=== PATIENT | female | born 1990 | race Caucasian/White ===

== ENCOUNTER → 2018-04-04 11:27 | Outpatient (CLI) | payer BC, SELFPAY ==
[2018-04-04 12:18] LABS: Prolactin 5.6 ng/mL
[2018-04-04 21:21] LABS: Chlamydia Trachomatis by PCR Negative (Negative); Neisserai gonorrhoeae by PCR Negative (Negative); Probe Check PASS; Sample Adequacy Control PASS; Specimen Processing Control PASS
[2018-04-10 14:09] LABS: HPV Reflexed? NOT INDICATED
== END ==
PROVIDERS: Nurse Practitioner Women's Health; Referring Provider Obstetrics & Gynecology; Visit Provider Obstetrics & Gynecology
DX: Z12.4 Encounter for screening for malignant neoplasm of cervix (principal); Z11.3 Encounter for screening for infections with a predominantly sexual mode of transmission; N92.6 Irregular menstruation, unspecified
CPT/HCPCS: 36415; 84146; 84443; 87491; 87591; 87624; 88175; G0145

== ENCOUNTER 2018-10-03 11:35 | Emergency (ER) | payer BC, SELFPAY ==
[2018-07-10 11:04] VITALS: BMI 43.7
[2018-10-03 11:36] VITALS: BP 149/82; PULSE 91; RESP 16; TEMP 36.6; O2SAT 98; BMI 44.4
--- NOTE | 2018-10-03 11:53 | RAD_ITS ---
STUDY: X-RAY CHEST REASON FOR EXAM: Female, 28 years old. Chest pain TECHNIQUE: Single AP portable view of the chest. COMPARISON: None. FINDINGS: The lungs are clear and expanded. There is no demonstrated pleural abnormality. Normal size heart. Normal mediastinum and mary ellen. Normal visualized pulmonary arteries. Normal visualized aortic arch and descending thoracic aorta. Normal visualized thoracic spine. Normal visualized ribs, clavicles, and shoulders. There is no demonstrated abnormality of the visualized soft tissue structures of the upper abdomen. RAD/Chest 1 View (Portable) IMPRESSION: Normal x-ray examination of the chest. Electronically Signed: Alan Mukherjee DO at 12:35 EDT Tel , Service support ,
--- NOTE | 2018-10-03 11:53 | EKG12_ITS ---
Test Reason : CP Blood Pressure : / mmHG Vent. Rate : 090 BPM Atrial Rate : 090 BPM P-R Int : 138 ms QRS Dur : 084 ms QT Int : 392 ms P-R-T Axes : 011 015 010 degrees QTc Int : 479 ms Normal sinus rhythm Normal ECG Confirmed by CLARE WILLS ([id number]), web content editor JENNIFFER JOYCE ([id number]) on 10/05/2018 10:48:14 AM Referred By: DALTON Confirmed By:CLARE WILLS
[2018-10-03] MEDS: Aspirin 81 MG TAB.CHEW 324 MG PO (12:06)
[2018-10-03] MEDS: 0.9% Normal Saline 1,000 ML 150 ML IV (12:07)
[2018-10-03 12:34] LABS: Absolute Neutrophil Count 4.8 X10^3/uL (2.0-7.7); Basophil# 0.02 X10^3/uL; Basophil% 0.3 % (0-1); Eosinophil# 0.11 X10^3/uL; Eosinophils% 1.5 % (0-5); Hemoglobin 14.1 g/dl (12.0-15.0); Lymphocyte % 26.8 % (19-41); Mean Corp Hgb Conc 33.6 g/gl (32-36); Mean Corpuscular Hgb 27.2 pg (27.0-32.0); Mean Corpuscular Volume 80.9 fL (81-99); Mean Platelet Vol. 10.9 fl (6.2-12.0); Monocyte# 0.53 X10^3/uL; Monocyte% 7.1 % (0-10); Neutrophil % 64.2 % (47-70); Platelet Count 259 K/mm3 (150-450); RBC Distribution Width CV 12.8 % (11.6-14.6); RBC Distribution Width SD 37.6 fl (35.1-43.9); Red Blood Count 5.19 M/mm3 (4.2-5.4); White Blood Count 7.5 K/mm3 (4.4-11.0)
--- NOTE | 2018-10-03 12:38 | ED.VISSUMM ---
- ER Visit Summary Date of Service: 10/03/18 Chief Complaint: Chest pain History of Present Illness: The patient is a 28 F with a 3-day history of chest pain. She states she has pain in the distal aspect of her upper arm on the left and along the left ribs. Pain will wax and wane with no specific enticing factor. She does state that the pain will get very sharp when it is severe. She denies shortness of breath but states she does not want to take deep breaths when the pain hits. Patient has no significant history of cardiac disease and no PE risk factors. She does have family history of cardiac disease. Physical Examination: Blood pressure is 149/82, otherwise unremarkable. Patient sitting upright in bed no acute distress. Head and neck examination normal. Heart is regular rate and rhythm. Lung sounds are clear. Chest wall is nontender. There is no crepitus. Abdomen is soft nontender. Lower exam examination was no calf tenderness or edema. Test Results: EKG is sinus at 90 with no sign of acute ischemia. Portable chest x-ray normal. CBC and chemistry studies normal. test is negative. D-dimer is negative. Troponin negative. Emergency Department Course and Treatment: She was given aspirin on arrival here. Patient has not had chest pain while in the emergency room. Test results were discussed with her. She will follow-up with primary care physician. She believes the pain may be secondary to anxiety. She is encouraged to return if symptoms worsen or any other concerns arise. Treatment Plan: [] Disposition: Discharge Impression: Atypical chest pain This note was generated with [employer] dictation software. It may contain incorrect words, spelling, and punctuation that were not noted in review of the chart prior to signing ED Disposition - Plan for ED Patient: Disposition: Home or Assisted Living Instructions: ED Chest Pain Atypical Unkn Cause Referrals: Michael Lew III, MD [STAFF PHYSICIAN] - 1-2 Weeks
[2018-10-03 12:46] LABS: POSITIVE COUNT NO; POSITIVE DIFFERENTIAL NO; POSITIVE MORPHOLOGY NO
[2018-10-03 12:48] LABS: D-Dimer Quantitative (DVT/PE) < 0.27 FEU/ug/m (0.27-0.49)
[2018-10-03 12:50] LABS: Anion Gap 5 (5-15); BUN 7 mg/dL (7-18); BUN/Creat Ratio 8.9 RATIO (10-20); Calcium,Total 9.1 mg/dL (8.5-10.1); Chloride 106 mmol/L (98-107); Creatinine, Serum 0.78 mg/dL (0.55-1.02); EST Glomerular Filtration Rate 93 mL/min (>60); Est Glom Filt Rate - Afr Amer 112 mL/min (>60); Estimated Creatinine Clearance 88.83 ml/min; Glucose 88 mg/dL (74-106); Potassium 3.7 mmol/L (3.5-5.1); Sodium Level 137 mmol/L (136-145)
[2018-10-03 12:55] LABS: Internal QC Validated? YES +Cl - CLEAR BKGD; Pregnancy, Serum, hCG Quali. NEGATIVE Negative
[2018-10-03 13:57] VITALS: BP 129/81; PULSE 70; RESP 20; O2SAT 99
== END 2018-10-03 14:02 | disposition home or self-care (01) ==
PROVIDERS: Emergency Provider Emergency Medicine
DX: R07.89 Other chest pain (principal); Z82.49 Family history of ischemic heart disease and other diseases of the circulatory system
CPT/HCPCS: 71045; 80048; 84484; 84703; 85025; 85379; 93005; 96360; 96361; 99284; J7030

== ENCOUNTER → 2019-07-12 | Outpatient (CLI) | payer BC, SELFPAY ==
[2019-07-04 14:44] VITALS: BMI 44.4
--- NOTE | 2019-07-12 08:10 | US_ITS ---
STUDY: ULTRASOUND OF THE FEMALE PELVIS - COMPLETE REASON FOR EXAM: Female, 28 years old. PELVIC PAIN LMP: June 27, 2019. TECHNIQUE: Transabdominal and Transvaginal TECHNICAL QUALITY: Adequate. COMPARISON: None. FINDINGS: The uterus is anteverted and is tilted to the right side of the pelvis. The uterus measures 7.4 cm x 3.7 cm x 2.6 cm. Normal uterine cervix. The endometrium measures 2.9 mm in thickness, and is hyperechoic. There is no demonstrated endometrial mass. There is no demonstrated myometrial mass. I.U.D. - The patient does not have an I.U.D. The right ovary is visualized. The right ovary measures 3.4 cm x 2.1 cm x 1.9 cm. There is no right ovarian cyst or ovarian mass. There is no visualized right adnexal mass or complex lesion. There is normal arterial and normal venous vascularity. The left ovary is visualized. The left ovary measures 2.7 cm x 2.5 cm x 1.7 cm. There is no left ovarian cyst or ovarian mass. There is no visualized left adnexal mass or complex lesion. There is normal arterial and normal venous vascularity. There is no fluid in the cul-de-sac. The pre void volume of the bladder was 481 ml. Polycystic ovary disease: No. US/Pelvic (Non ) IMPRESSION: Normal female pelvis. Electronically Signed: Kevin Cantu, at 13:31 EST , Service support ,
--- NOTE | 2019-07-12 08:10 | US_ITS ---
STUDY: ULTRASOUND OF THE FEMALE PELVIS - COMPLETE REASON FOR EXAM: Female, 28 years old. PELVIC PAIN LMP: June 27, 2019. TECHNIQUE: Transabdominal and Transvaginal TECHNICAL QUALITY: Adequate. COMPARISON: None. FINDINGS: The uterus is anteverted and is tilted to the right side of the pelvis. The uterus measures 7.4 cm x 3.7 cm x 2.6 cm. Normal uterine cervix. The endometrium measures 2.9 mm in thickness, and is hyperechoic. There is no demonstrated endometrial mass. There is no demonstrated myometrial mass. I.U.D. - The patient does not have an I.U.D. The right ovary is visualized. The right ovary measures 3.4 cm x 2.1 cm x 1.9 cm. There is no right ovarian cyst or ovarian mass. There is no visualized right adnexal mass or complex lesion. There is normal arterial and normal venous vascularity. The left ovary is visualized. The left ovary measures 2.7 cm x 2.5 cm x 1.7 cm. There is no left ovarian cyst or ovarian mass. There is no visualized left adnexal mass or complex lesion. There is normal arterial and normal venous vascularity. There is no fluid in the cul-de-sac. The pre void volume of the bladder was 481 ml. Polycystic ovary disease: No. US/Transvaginal Non- IMPRESSION: Normal female pelvis. Electronically Signed: Kevin Cantu, at 13:31 EST , Service support ,
== END | disposition home or self-care (01) ==
LOC: OPUS 08:10
PROVIDERS: PCP Nurse Practitioner Primary Care; Referring Provider Nurse Practitioner Women's Health; Visit Provider Nurse Practitioner Women's Health
DX: R10.2 Pelvic and perineal pain (principal)
CPT/HCPCS: 76830; 76856; 93976

== ENCOUNTER 2020-08-30 06:17 | Emergency (ER) | payer BC, SELFPAY ==
[2020-08-24 10:59] VITALS: BMI 47.7
[2020-08-30 06:18] VITALS: BP 151/88; PULSE 71; RESP 16; TEMP 36.5; O2SAT 97; BMI 46.8
--- NOTE | 2020-08-30 06:29 | EKG12_ITS ---
Test Reason : Blood Pressure : / mmHG Vent. Rate : 076 BPM Atrial Rate : 076 BPM P-R Int : 126 ms QRS Dur : 088 ms QT Int : 418 ms P-R-T Axes : 004 023 010 degrees QTc Int : 470 ms Normal sinus rhythm with sinus arrhythmia Low voltage QRS Borderline ECG Confirmed by NANI CONNOR, LUISITO ([id number]), manuscript editor ONUR VASQUEZ ([id number]) on 09/02/2020 7:50:31 AM Referred By: BUSHRA Confirmed By:LUISITO CARDOZA MD
--- NOTE | 2020-08-30 06:30 | ED.DCSUM_ITS ---
History of Present Illness Chief Complaint: Abd Pain Informant: Patient Onset: Today Current Severity: Mild Maximum Severity: Moderate Narrative: Patient states she awoke from sleep early this morning with upper epigastric pain that wraps around both sides into her back. Patient states she tried taking some Tums without improvement. She thought if she drinks some water or ate something that may help. She did have some slight improvement although the pain did not resolve. Patient states she went to bed approximately 4 hours ago and felt okay at that time. She has a history of occasional reflux stating she will take Tums once a week to once every 2 weeks. No fever or chills. No vomiting or diarrhea. - Past Medical History (1) PCOS (polycystic ovarian syndrome) Status: Chronic Past Medical History - Allergies and Home Meds Allergies/Adverse Reactions: Allergies No Known Allergies Allergy (Verified 08/24/20 10:56) Primary Care Physician: Alecia Liz NP, [employer]LE[employer] SPECIALIST-C [Primary Care Provider] - Lives: Spouse/ Significant Other Smoking Status: Never smoker Review of Systems General: Denies: Chills, Fever Eyes: Denies: Visual changes - bilaterally ENT: Denies: Bilateral ear pain Cardiovascular: Denies: Chest pain Respiratory: Denies: Dyspnea, Cough Gastrointestinal: Reports: Abdominal pain. Denies: Nausea, Vomiting, Diarrhea Genitourinary: Denies: Dysuria Musculoskeletal: Denies: Swelling, Extremity Pain Skin: Denies: Rash Neurological: Denies: Headache Hematologic: Denies: Easy bruising, Easy bleeding Allergy: Denies: Uticaria Physical Exam Vital Signs/Narrative: Vital Signs Temp Pulse Resp BP Pulse Ox 08/30/20 06:18 97.7 F L 71 16 151/88 H 20 Inital Vital Signs reviewed: Yes General: Well nourished, Well developed Head: Normocephalic ENT: Moist mucous membranes Neck: Supple Cardiovascular: Regular rate, Regular rhythm Respiratory: No distress, CTA bilaterally Abdomen: Soft, Nontender, Hypoactive bowel sounds Skin: Normal color Neurological: Alert, Oriented x3 Psychological: Normal affect Diagnostic/Tx/Re-eval Impressions Chest CTA 08/30/20 07:03 IMPRESSION: Normal CTA chest examination, without a demonstrated pulmonary embolism, aortic aneurysm, or aortic dissection. No evidence for acute cardiopulmonary pathology. Electronically Signed: Jose Moser MD at 7:48 EDT , Service support , 08/30/20 07:03 CTA Chest W/WO Contrast [CT] Stat Laboratory Results 08/30/20 08/30/20 08/30/20 06:40 06:40 06:40 WBC 9.4 RBC 5.05 Hgb 13.2 Hct 40.7 MCV 80.6 L MCH 26.1 L MCHC 32.4 RDW Std Deviation 38.5 RDW Coeff of Shona 13.2 Plt Count 271 MPV 10.4 Immature Gran % (Auto) 0.300 Neut % (Auto) 56.3 Lymph % (Auto) 33.7 Benson % (Auto) 8.0 Eos % (Auto) 1.3 Baso % (Auto) 0.4 Absolute Neuts (auto) 5.3 Absolute Lymphs (auto) 3.16 Nucleated RBC % 0 D-Dimer Quant (PE/DVT) 1.26 H* Sodium 137 Potassium 3.5 Chloride 103 Carbon Dioxide 27.0 Anion Gap 7 BUN 10 Creatinine 0.81 Estim Creat Clear Calc 87.70 Est GFR (MDRD) Af Amer 107 Est GFR (MDRD) Non-Af 89 BUN/Creatinine Ratio 12.4 Glucose 130 H Calcium 9.0 Total Bilirubin 0.20 Direct Bilirubin 0.13 AST 16 ALT 34 Alkaline Phosphatase 89 Troponin I < 0.015 Total Protein 6.8 Albumin 2.8 L Globulin 4.0 Lipase 104 - EKG Initial EKG Interpretation: Sinus Rhythm - Sinus at 76 with no acute ischemia. - Medical Decision Making Blood work is largely unremarkable. Negative lipase and troponin. D-dimer is slightly elevated. CTA of the chest does not reveal any evidence of a PE. Test results discussed with patient at bedside. We will start her on Prilosec as my suspicion is her symptoms are secondary to reflux or a small ulcer. She is to follow-up with her primary care physician within the next 2 to 4 weeks. ED Disposition - Plan for ED Patient: Disposition: Home or Assisted Living Diagnosis: Epigastric pain Instructions: ED Epigastric Pain (Uncertain Cause) Prescriptions: Omeprazole [Prilosec] 20 mg PO DAILY #30 capsule Transmission Status: Pending to [facility]/pharmacy #[id number] Referrals: PodlogarAlecia NP, [employer]LE[employer] SPECIALIST-C [Primary Care Provider] - 1-2 Weeks
[2020-08-30] MEDS: Pantoprazole Sodium 40 MG Tablet PO (06:44)
[2020-08-30 06:46] LABS: Absolute Lymphocyte Count 3.16 X10^3/uL (0.83-4.51); Absolute Neutrophil Count 5.3 X10^3/uL (2.0-7.7); Basophil# 0.04 X10^3/uL; Basophil% 0.4 % (0-1); Eosinophil# 0.12 X10^3/uL; Eosinophils% 1.3 % (0-5); Hematocrit 40.7 % (37-47); Hemoglobin 13.2 g/dL (12.0-15.0); Lymphocyte # 3.16 X10^3/ul (4.0); Lymphocyte % 33.7 % (19-41); Mean Corp Hgb Conc 32.4 g/dL (32-36); Mean Corpuscular Hgb 26.1 pg (27.0-32.0); Mean Corpuscular Volume 80.6 fL (81-99); Mean Platelet Vol. 10.4 fl (6.2-12.0); Monocyte# 0.75 X10^3/uL; NRBC Flagged by Analyzer 0 % (0-5); Neutrophil # 5.27 X10^3/uL (2.7-7.7); Neutrophil % 56.3 % (47-70); Platelet Count 271 K/mm3 (150-450); RBC Distribution Width CV 13.2 % (11.6-14.6); RBC Distribution Width SD 38.5 fl (35.1-43.9); Red Blood Count 5.05 M/mm3 (4.2-5.4); White Blood Count 9.4 K/mm3 (4.4-11.0)
[2020-08-30 06:58] LABS: D-Dimer Quantitative (DVT/PE) 1.26 FEU/ug/m (0.27-0.49)
--- NOTE | 2020-08-30 07:03 | CT_ITS ---
STUDY: CTA CHEST REASON FOR EXAM: Female, 30 years old. lower chest pain, elevated d-dimer RADIATION DOSAGE (If Supplied By Facility): CTDIvol = ( 12.66 ) mGy, DLP = ( 509.37 ) mGycm TECHNIQUE: The examination was performed with the intravenous administration of IV 100mL Isovue-370. Post-processing of the angiographic images was performed, with multiplanar reformation and 3D reconstruction. Individualized dose optimization techniques were used for this CT. COMPARISON: Chest x-ray 10/03/2018. FINDINGS: Normal enhancement of the main pulmonary artery and right and left pulmonary arteries. Normal enhancement of the bilateral peripheral pulmonary arteries. There is no demonstrated pulmonary embolism. Normal thoracic aorta and visualized great vessels. There is no demonstrated aortic dissection. Normal heart and pericardium. Normal mediastinum. Normal hilar regions. Normal visualized trachea and bronchi. The lungs are well expanded. Normal pulmonary parenchyma. Normal pleura. Normal chest wall structures. Normal osseous structures. Normal visualized upper abdomen. CT/CTA Chest W/WO Contrast IMPRESSION: Normal CTA chest examination, without a demonstrated pulmonary embolism, aortic aneurysm, or aortic dissection. No evidence for acute cardiopulmonary pathology. Electronically Signed: Jose Moser MD at 7:48 EDT , Service support ,
[2020-08-30 07:06] LABS: AST(SGOT) 16 U/L (15-37); Alanine Aminotransfer ALT/SGPT 34 U/L (13-56); Albumin, Serum 2.8 g/dL (3.2-5.0); Alkaline Phosphatase 89 U/L (45-117); Anion Gap 7 (5-15); BUN 10 mg/dL (7-18); BUN/Creat Ratio 12.4 RATIO (10-20); Bilirubin, Direct 0.13 mg/dL (0.00-0.30); Chloride 103 mmol/L (98-107); Creatinine, Serum 0.81 mg/dL (0.55-1.02); EST Glomerular Filtration Rate 89 mL/min (>60); Est Glom Filt Rate - Afr Amer 107 mL/min (>60); Glucose 130 mg/dL (74-106); Lipase 104 U/L (73-393); Potassium 3.5 mmol/L (3.5-5.1); Protein, Total 6.8 g/dL (6.4-8.2); Sodium Level 137 mmol/L (136-145)
[2020-08-30 08:04] VITALS: BP 138/74; PULSE 85; RESP 15; O2SAT 98
== END 2020-08-30 08:05 | disposition home or self-care (01) ==
PROVIDERS: Emergency Provider Emergency Medicine; PCP Nurse Practitioner Primary Care
DX: R10.13 Epigastric pain (principal); R79.1 Abnormal coagulation profile
CPT/HCPCS: 71275; 80048; 80076; 83690; 84484; 85025; 85379; 93005; 99285; Q9967

== ENCOUNTER 2021-08-25 15:00 | Outpatient (CLI) | payer BC, SELFPAY ==
[2021-08-31 11:13] LABS: HPV APTIMA, High Risk Negative (Negative)
== END 2021-08-25 23:59 | disposition home or self-care (01) ==
LOC: LABSPEC 08-26 13:59
PROVIDERS: PCP Nurse Practitioner Primary Care; Referring Provider Nurse Practitioner Women's Health; Visit Provider Nurse Practitioner Women's Health
DX: Z12.4 Encounter for screening for malignant neoplasm of cervix (principal)
CPT/HCPCS: 87624; 88175; G0145

== ENCOUNTER 2022-04-05 11:33 | Day surgery (SDC) | payer BC, SELFPAY ==
--- NOTE | 2022-04-04 16:01 | EKG12_ITS ---
Test Reason : PREOP Blood Pressure : / mmHG Vent. Rate : 087 BPM Atrial Rate : 087 BPM P-R Int : 130 ms QRS Dur : 078 ms QT Int : 382 ms P-R-T Axes : 015 006 016 degrees QTc Int : 459 ms Normal sinus rhythm with sinus arrhythmia Normal ECG Confirmed by NANI CONNOR, LUISITO ([id number]), assistant editor JENNIFFER JOYCE ([id number]) on 04/05/2022 8:49:57 AM Referred By: Lulu Gee Confirmed By:LUISITO CARDOZA MD
[2022-04-05] VITALS (14 sets, daily range): BP systolic 115–152; BP diastolic 78–110; PULSE 60–97; RESP 16–22; TEMP 35.9–36.6; O2SAT 97–100; BMI 45.6
--- NOTE | 2022-04-05 11:42 | EKG12_ITS ---
Test Reason : PREOP Blood Pressure : / mmHG Vent. Rate : 089 BPM Atrial Rate : 089 BPM P-R Int : 136 ms QRS Dur : 086 ms QT Int : 394 ms P-R-T Axes : 012 002 008 degrees QTc Int : 479 ms Normal sinus rhythm Normal ECG No previous ECGs available Confirmed by CARISSA CONNOR, JOSLYN ([id number]), deputy editor in chief JENNIFFER JOYCE ([id number]) on 04/12/2022 10:59:58 AM Referred By: Lulu Gee Confirmed By:KYLIE FERRER MD
[2022-04-05 12:41] LABS: Internal QC Validated? YES +Cl - CLEAR BKGD; Pregnancy, Urine Negative Negative
[2022-04-05] MEDS: Lactated Ringers 1,000 ML 15 ML IV ×3 (12:58→18:34)
--- NOTE | 2022-04-05 13:30 | GALL_PTH ---
PATIENT: ROLAN GONZALEZ LOC: [facility] [place][id number] AGE/SX: 31/F ROOM: RE04/05/[address]: Dr. Lulu Gee MD : 1990 BED: DIS: 04/05/2022 SPEC #: [id number] RECD: 04/05/22 14:59 STATUS: ILEANA DESHAWN #: [id number] SAMIR: 04/05/22 13:[address]: Lulu Gee DEPT: SURGICAL PATHOLOGY RECD BY: Mayra Michel ENTERED: 04/06/22 09:23 SP TYPE: TADEO MATTHEWS DR: Alecia Liz, 2ND GRADE TEACHER-C Tissues: Gallbladder, NOS Procedures: Surgery Specimen Level III HEADER OPERATION: Laparoscopic cholecystectomy PRE-OP DIAGNOSIS: RUQ pain, calculus of gallbladder TISSUE SUBMITTED: Gallbladder and contents MICROSCOPIC DIAGNOSIS Gallbladder, cholecystectomy: Cholesterolosis, chronic cholecystitis and cholelithiasis. AM:miguel angel 04/07/2022 MICROSCOPIC DESCRIPTION Slides are reviewed. GROSS DESCRIPTION Received is one container labeled with the patient's name and designated gallbladder. The specimen consists of a gallbladder measuring 8.5 cm in length and 3.5 cm in diameter. The external surface is smooth and glistening. Focally, it is granular, hemorrhagic and contains cautery artifact. The lumen of the gallbladder contains green mucoid bile and a single ovoid, yellow, crystalline calculus measuring 1.5 cm in greatest dimension. The mucosa is bile-stained and without any mass lesions. The gallbladder wall averages 0.1 cm in thickness and is free of mass lesions. The mucosa contains chalky, yellow streaks. Foxer sections of the gallbladder and the cystic duct at margin of resection are submitted in one cassette. / AM:miguel angel 04/06/2022 :3 CPT: 08598
[2022-04-05] MEDS: Bupivacaine 0.25% 30 ML Vial (14:32)
--- NOTE | 2022-04-05 14:51 | PCM.OPRPT ---
Report of Operation Date of Procedure: 04/05/22 Pre-Operative Diagnosis: cholelithiasis, abdominal pain Post-Operative Diagnosis: same Surgery/Procedure Performed:: laparoscopic cholecystectomy Description of Surgical Findings:: gallbladder with minimal inflammatory changes Surgeon: Lulu Gee dimension warehouse supervisor: Niko Lim Type of Anesthesia: General Anesthesiologist: Amish Mahmood Specimen's removed: gallbladder and contents Drains: none Estimated Blood Loss (mL): < 10 ml Fluids Replaced: 1000 ml RL Description of Procedure: After informed consent was given, the patient was brought to the Operating Room. Appropriate time out protocol was followed. The patient was placed in the supine position. The patient was then placed under general endotracheal anesthesia by the anesthesia provider. The abdomen was then prepped with a sterile surgical skin preparation and sterile surgical drapes were placed. An area superior to the umbilical dimple was grasped with penetrating clamps and the skin and subcutaneous tissues were infiltrated with local anesthetic. A skin incision was then made with a 15 blade scalpel. The anterior abdominal wall was elevated and a Veress needle was carefully inserted into the intraabdominal cavity. It was checked to be in the proper position with a normal saline drop test. A CO2 pneumoperitoneum was then created. Once this was achieved, then the Veress needle was removed and an 11mm trocar was placed in its stead. A 10mm laparoscope was then inserted into the trocar and careful attention was directed to the intraabdominal contents. There was no evidence of injury to any intraabdominal organs from insertion of the Veress needle or the trocar. Under direct visualization, a 5mm subxiphoid trocar and two lateral 5mm right subcostal trocars were placed. The skin and subcutaneous tissues at these sites were infiltrated with local anesthetic prior to placement of these trocars. Attention was then directed to the right upper quadrant of the abdomen. Graspers were placed in the lateral trocars to grasp the distal aspect of the gallbladder and direct it cephalad and to grasp the gallbladder at Osman?s pouch and direct it laterally. Dissection then began on the proximal gallbladder continuing down to the area of the triangle of Calot to bluntly dissect out the cystic duct. The neck of the gallbladder was identified and blunt dissection continued to dissect out a segment of the cystic duct. A clip was then placed on the neck of the gallbladder. Two clips were placed further proximally. The cystic duct was then transected. The cystic artery was visualized and bluntly isolated and then two clips were placed proximally and one clip distally and then it was transected between the proximal and distal clips. The gallbladder was then from the liver bed using electrocautery. Once from the liver bed, it was brought out via the umbilical port in an Endobag. It was then forwarded to pathology for analysis. The liver bed was carefully examined. There was no evidence of bile leakage or bleeding. The cystic duct stump and cystic artery stump had their clips intact and there was no evidence of bile leakage or bleeding. The remainder of the abdomen was grossly normal. The CO2 was released and all trocars removed intact. The periumbilical fascia was approximated with a [id number] 0 vicryl suture. All skin incision were closed with 4-0 monocryl in a subdermal fashion. Cavilol and Steristrips were used to reinforce the skin closure. Sterile dressings were applied to all wounds. Sponge, needle and instrument count was verified and correct at time of skin closure. The patient was extubated and brought to the Recovery Room in stable condition. Complications none noted Admit VTE Documentation VTE Present on Admission: Yes VTE Mechan Device Prophylaxis: SCD's
[2022-04-05] MEDS: HYDROmorphone 0.5 MG/0.5 ML SYRINGE IV (15:02)
== END 2022-04-05 19:36 | disposition home or self-care (01) ==
LOC: SDC 11:35 → AC 11:35
PROVIDERS: Anesthesiology; PCP Nurse Practitioner Primary Care; Referring Provider Surgery; Visit Provider Surgery
PROC: (CPT 47610; principal; 2022-04-05 13:10)
DX: K80.10 Calculus of gallbladder with chronic cholecystitis without obstruction (principal); E66.01 Morbid (severe) obesity due to excess calories; Z68.42 Body mass index [BMI] 45.0-49.9, adult; E28.2 Polycystic ovarian syndrome
CPT/HCPCS: 47562; 00790; 81025; 88304; 93005; J7120; J2405

== ENCOUNTER → 2022-09-15 | Outpatient (CLI) | payer BC, SELFPAY ==
--- NOTE | 2022-09-15 07:52 | US_ITS ---
STUDY: ULTRASOUND OF THE FEMALE PELVIS - COMPLETE REASON FOR EXAM: Female, 32 years old. pain LMP: TECHNIQUE: Transabdominal and transvaginal TECHNICAL QUALITY: Adequate. COMPARISON: July 12, 2019 FINDINGS: The uterus is anteverted and is in a midline position. The uterus measures 6.6 x 3.3 x 2.7 cm. Normal uterine cervix. The endometrium measures 3.3 mm in thickness, and is hyperechoic. There is no demonstrated endometrial mass. There is no demonstrated myometrial mass. I.U.D. - The patient does not have an I.U.D. The right ovary is visualized. The right ovary measures 3.2 x 2 x 2.3 cm. There is no right ovarian cyst or ovarian mass. There is no visualized right adnexal mass or complex lesion. There is normal arterial and normal venous vascularity. The left ovary is visualized. The left ovary measures 3.1 x 2.2 x 2.1 cm. There is no left ovarian cyst or ovarian mass. There is no visualized left adnexal mass or complex lesion. There is normal arterial and normal venous vascularity. There is no fluid in the cul-de-sac. The pre void volume of the bladder was 250 ml. Multiple small peripheral cystic follicles in the ovaries bilaterally consistent with known polycystic ovary disease US/Pelvic (Non ) IMPRESSION: Findings consistent with known polycystic ovary disease. No acute abnormalities Electronically Signed: Chandler Cherry MD at 17:20 EDT ,
== END | disposition home or self-care (01) ==
PROVIDERS: PCP Nurse Practitioner Primary Care; Referring Provider Nurse Practitioner Women's Health; Visit Provider Nurse Practitioner Women's Health
DX: R10.2 Pelvic and perineal pain (principal)
CPT/HCPCS: 76830; 76856

== ENCOUNTER 2024-03-08 11:07 | Day surgery (SDC) | payer BC, SELFPAY ==
[2024-03-08] VITALS (8 sets, daily range): BP systolic 109–135; BP diastolic 68–95; PULSE 78–101; RESP 16–20; TEMP 36.1–37.2; O2SAT 95–100; BMI 45.7
--- NOTE | 2024-03-08 11:26 | PCM.PRE.AN2 ---
ASA Classification* ASA Classification ASA Classification: 3 Assessment & Plan Anesthesia* Anesthesia Assessment Anesthesia Assessment: Discussed sedation and/or anesthesia options, risks, benefits, and alternatives with patient/parents/legal guardian/POA. Questions invited. The patient/parents/legal guardian/POA seems to understand and agrees to proceed with anesthesia plan. Reviewed the physical assessment, medical history, allergy history and patient home medications list prior to surgery/procedure/anesthetic and documented any changes. Performed airway and anesthesia risk assessments. Anesthesia Type Anesthesia Type: MAC (see written pre anesthesia record for full assessment) Anesthesia Focused Assessment* Airway Assessment Mouth opens: >3 cm Mallampati Score: II Focused Labs Anesthesia Preop lab: CBC WBC 9.4 K/mm3 (4.4-11.0) 08/30/20 06:40 RBC 5.05 M/mm3 (4.2-5.4) 08/30/20 06:40 Hgb 13.2 g/dL (12.0-15.0) 08/30/20 06:40 Hct 40.7 % (37-47) 08/30/20 06:40 Plt Count 271 K/mm3 (150-450) 08/30/20 06:40 CHEMISTRY Potassium 3.5 mmol/L (3.5-5.1) 08/30/20 06:40 Sodium 137 mmol/L (136-145) 08/30/20 06:40 BUN 10 mg/dL (7-18) 08/30/20 06:40 Creatinine 0.81 mg/dL (0.55-1.02) 08/30/20 06:40 Glucose 130 mg/dL (74-106) H 08/30/20 06:40 TSH 1.80 uIU/mL (0.358-3.74) 04/04/18 11:36 COAG Urine Test Negative Negative 04/05/22 12:33 Tst Clinic Negative 04/04/18 16:15 Pre-Assessment Diagnosis/Proposed Procedure Planned Operative Procedure(s): CSCOPE Anesthesia History Anesthesia History - photographic process screen maker: Anesthesia History - photographic process screen maker Hx Hospitalization No 03/06/24 10:45 Any Problems With Anesthesia Yes: SLOW TO AWAKEN, PONV 03/06/24 10:45 Cholinesterase deficiency No 03/06/24 10:45 You/Your Family Experience No 03/06/24 10:45 fever (hyperthermia) with Relationship Recent Exposure to Contagious No 04/05/22 12:52 Disease Does patient have nerve No 03/06/24 10:45 stimulator Patient instructed to have device shut off --Does patient have Pacemaker or ICD? When Was Last Pacemaker Check QUESTION #4 FULL TEXT: You/Your Family Experience fever (hyperthermia) with Anesthesia Last Oral Intake Last Oral intake: Last Oral Intake NPO since Meds taken in AM with sips of water? Meds patient instructed to take am of surgery PONV PONV - photographic process screen maker: PONV - photographic process screen maker Female Yes 03/06/24 10:45 HX of Motion Sickness Yes 03/06/24 10:45 HX of N/V After Surgery Yes 03/06/24 10:45 Non-Smoker Yes 03/06/24 10:45 Duration of Surgery greater No 03/06/24 10:45 than 60 minutes Number of Risk Factors 4 03/06/24 10:45 PONV Score Severe Risk 03/06/24 10:45 Height & Weight Height & Weight: Anesthesia: Height & Weight Height 5 ft 3 in 09/04/23 09:16 Respiratory Assessment Respiratory Assessment - photographic process screen maker: Respiratory Tract Infection Hx - photographic process screen maker Hx Respiratory Tract Infection No 03/06/24 10:45 STOP Sleep Apnea STOP Sleep Apnea - photographic process screen maker: STOP Sleep Apnea - photographic process screen maker Hx Hypertension No 03/06/24 10:45 Hx Sleep Apnea No 03/06/24 10:45 CPAP BIPAP Do you snore loudly (louder No 03/06/24 10:45 than talking or can be heard Do you often feel tired/ No 03/06/24 10:45 fatigued/ sleepy during daytime? Has anyone observed you stop No 03/06/24 10:45 breathing during sleep? STOP Results Negative 03/06/24 10:45 QUESTION #5 FULL TEXT : Do you snore loudly (louder than talking or can be heard through closed doors)? 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 Specify any problems Hx of Preganancy in last 3 N/A 03/06/24 10:45 Months Nurse Filling Out Transfusion NBUCHER 03/06/24 10:45 & Questions: Date: 03/06/24 03/06/24 10:45 Time: 10:47 03/06/24 10:45 Patient unable to answer at this time (ie. confused, unrespo /Reproduction History /Reproductive History - photographic process screen maker: /Reproductive Hx- photographic process screen maker Hx Now Gestational Age (in weeks): EDC: Hx Hx Para Hx Section SAB No 03/06/24 10:45 PFSH Medical History PONV (postoperative nausea and vomiting) Wears glasses Alcohol use Migraine headache Heartburn Former smoker History of palpitations PCOS (polycystic ovarian syndrome) Home Medications ?Medication ?Instructions ?Recorded ?Last Taken ?Type levonorgestrel-ethinyl estradiol 1 tab PO QDAY #28 tabs 02/07/24 Unknown Rx 0.1 mg-20 mcg tablet (Aviane) Allergy/AdvReac Type Severity Reaction Status Date / Time No Known Allergies Allergy Verified 03/06/24 10:44 Family History Mother Diabetes Father Diabetes Hypertension Surgical History S/P cholecystectomy [place] teeth extracted History of tonsillectomy and adenoidectomy Social History number of children: 0 current occupational status: employed current occupation: [employer] Smoking Status: Former smoker alcohol intake: current alcohol intake frequency: holidays/special occasions only substance use type: does not use what type of physical activity do you participate in: other details: squats sit ups/push ups frequency: 3-4 times per week seatbelt use: always do you feel safe at home: Yes additional social history: [place] Works at [employer] (Closed) 4 Review of Systems (Anesthesia) ROS Narrative System reviewed and no additional complaints, except as documented.
[2024-03-08 11:44] LABS: Internal QC Validated? YES +Cl - CLEAR BKGD; Pregnancy, Urine Negative Negative
--- NOTE | 2024-03-08 12:30 | COLBX_PTH ---
PATIENT: ROLAN GONZALEZ LOC: EN U#:[id number] AGE/SX: 33/F ROOM: RE03/08/[address]: Dr. Joe Mckeon DO : 1990 BED: DIS: 03/08/2024 SPEC #: [id number] RECD: 03/08/24 16:48 STATUS: ILEANA DESHAWN #: [id number] SAMIR: 03/08/24 12:[address]: Joe Mckeon DEPT: SURGICAL PATHOLOGY RECD BY: Mayra Michel ENTERED: 03/11/24 08:18 SP TYPE: COLON BX OTHR DR: Alecia Liz, RN ONCOLOGY-C Tissues: A - Ileum, NOS B - COLON BIOPSY C - Rectum, NOS Procedures: Surgery Specimen Level IV HEADER OPERATION: Colonoscopy with biopsy and polypectomy PRE-OP DIAGNOSIS: Constipation, Irritable bowel syndrome TISSUE SUBMITTED: A- Terminal ileum biopsy, B- Hepatic flexure polyp, C- Rectal polyp MICROSCOPIC DIAGNOSIS A. Terminal ileum, biopsy: No pathologic change. B. Colonic polyp at hepatic flexure, biopsy: Fragments of hyperplastic polyp. C. Rectal polyp, biopsy: Fragments of inflammatory polyp with mucosal ulceration and granulation. See comment. 03/12/2024 COMMENT C. Clinical correlation is suggested. MICROSCOPIC DESCRIPTION Slides are reviewed. GROSS DESCRIPTION A. Received in fixative is one container labeled with the patient's name and designated Terminal ileum biopsy. The specimen consists of multiple irregular fragments of light harding soft tissue that in aggregate measure 1.5 x 0.3 x 0.1 cm. The specimen is totally submitted in one cassette. B. Received in fixative is one container labeled with the patient's name and designated Hepatic flexure polyp. The specimen consists of multiple irregular fragments of light harding soft tissue that in aggregate measure 1.5 x 0.6 x 0.1 cm. The specimen is totally submitted in one cassette. C. Received in fixative is one container labeled with the patient's name and designated Rectal polyp. The specimen consists of multiple irregular fragments of light harding soft tissue that in aggregate measure 1.5 x 0.5 x 0.1 cm. The specimen is totally submitted in one cassette. SJ 03/11/2024 TC:2 CPT:52448x3
--- NOTE | 2024-03-08 12:55 | HP.PCM_ITS ---
History and Physical Date of Admission: 03/08/24 Chief Complaint: constipation Details: ROLAN GONZALEZ, is a 33 F who presents to the office today for establishment with [facility]. She has always had digestive problems with constipation. It has been worsening as of recently. Feels like her stool is very large and hard to pass. SHe feels as if she does not have strength in her rectal muscles. She has been trying to incorporate a lot of fiber in her diet as well as supplementation. She will have LLQ pain on occasion but not all the time. She tells me she has family hx of colon cancer in her great uncle and cousins. She is unsure of their age as diagnosis. She would like to undergo colonoscopy to rule everything out and as precaution since family members have had colon cancer. She is s/p cholecystectomy March of 2022. She does have hx of PCOS and endometriosis. ROS Const Constitutional: No fatigue, fever(s) or weight change ENT ENT: No difficulty swallowing Gastro GI: Positive for abdominal pain, bloating, change in bowel habits, constipation, heartburn, excessive flatus and Blood in stool; No belching, change in stool character, coffee ground emesis, cramping, diarrhea, difficulty swallowing, feeling full early, incontinent of stools, Vomiting blood/hematemesis, loose stools, Black,tarry stools, nausea/dyspepsia, pain with swallowing, vomiting or other Musc Musculoskeletal: No joint pain Skin Skin: No yellowing of the eye or itchy eyes Psych Psychiatric: Positive for anxiety and No depression Endo Endocrine: No fatigue or weight change Aller/Imm Allergy/Immunologic: No itchy eyes Jt/Lymp Hematologic/Lymphatic: No easy bleeding or easy bruising Exam Const General: cooperative and comfortable Nutritional Appearance: average body habitus and well nourished [facility] Head: normal to inspection Ears: hearing grossly normal bilaterally Nose: external nose normal Face and sinus: normal facial exam Eyes General: appearance normal, both eyes and all related structures Neck Neck: normal visual inspection Chest Chest palpation & inspection: normal inspection of the chest Resp Effort & Inspection: normal respiratory effort Cardio Palpation: normal PMI GI Inspection: normal to inspection Palpation: no hepatosplenomegaly Skin General: no rashes or lesions noted Neuro General: patient alert Extrem General: normal to inspection Psych Affect: normal affect Assessment and Plan Assessment and Plan (1) Irritable bowel syndrome: (2) Constipation: Status: Acute Plan: Patient is here today for establishment with [facility]. She has a long hx of constipation with worsening over the past years. She feels her stools are large and hard. SHe has never had any GI workup. Differential diagnosis includes IBS, IBD or CIC. -Will order autoimmune work up to rule our IBD; although symptoms do align more with a diagnosis of IBS, she has no alarm signs -She would like to undergo colonoscopy. She is nervous about colon cancer as her distant relatives have had it. Explained that since the family is not intermediate that there is not an increased risk. Will order one regardless as she is having symptoms -She will take miralax once per day for constipation. If this is not helpful she will add a second dose in the evening -We will consider other testing in the future with sitz marker if indicated -She will f/u in 3 months Orders: Orders CBC W/Diff, Automated Today K59.00 - Constipation, unspecified Angiotensin Convert Enzyme Today K59.00 - Constipation, unspecified Anti-Mitochondrial AB Today K59.00 - Constipation, unspecified Anti-Smooth Muscle ABS Today K59.00 - Constipation, unspecified Celiac Disease Profile Today K59.00 - Constipation, unspecified Comprehensive Metabolic Profil Today K59.00 - Constipation, unspecified Allergen, Food Profile 14 Today K59.00 - Constipation, unspecified ENTERIC PATHOGEN PANEL STOOL Today K58.9 - Irritable bowel syndrome without diarrhea, K59.00 - Constipation, unspecified Ova and Parasites 8623 Today K58.9 - Irritable bowel syndrome without diarrhea, K59.00 - Constipation, unspecified Pancreatic Elastase, Fecal Today K59.00 - Constipation, unspecified Stool Lactoferrin/WBC Today K58.9 - Irritable bowel syndrome without diarrhea, K59.00 - Constipation, unspecified CDIFF (PCR) Today K59.00 - Constipation, unspecified IBD Expanded Profile Today K59.00 - Constipation, unspecified Giardia Lamblia, Stool EIA Today K59.00 - Constipation, unspecified MEAGAN Comprehensive Panel Today K59.00 - Constipation, unspecified ANCA Today K59.00 - Constipation, unspecified I have examined the patient and the H&P has been reviewed. There are no clinical changes since date of exam.
--- NOTE | 2024-03-08 13:35 | OP.COLON_ITS ---
Patient Name: Ara Prado Procedure Date: 03/08/2024 12:58 PM Date of : 1990 Age: 33 Procedure: Colonoscopy Indications: Abdominal pain in the left lower quadrant, Irritable bowel syndrome with constipation Providers: Joe Mckeon DO Referring MD: Alecia Liz Medicines: Monitored Anesthesia Care Patient Profile: This is a 33 year old female. Refer to note in patient chart for documentation of history and physical. Last Colonoscopy: none. The patient's first colonoscopy is today. Complications: No immediate complications. Procedure: Pre-Anesthesia Assessment: - Prior to the procedure, a History and Physical was performed, and patient medications and allergies were reviewed. The patient is competent. The risks and benefits of the procedure and the sedation options and risks were discussed with the patient. All questions were answered and informed consent was obtained. Patient identification and proposed procedure were verified by the physician in the pre-procedure area. Mental Status Examination: alert and oriented. Airway Examination: normal oropharyngeal airway and neck mobility. Respiratory Examination: clear to auscultation. CV Examination: normal. Prophylactic Antibiotics: The patient does not require prophylactic antibiotics. Prior Anticoagulants: The patient has taken no anticoagulant or antiplatelet agents except for NSAID medication. ASA Grade Assessment: II - A patient with mild systemic disease. After reviewing the risks and benefits, the patient was deemed in satisfactory condition to undergo the procedure. The anesthesia plan was to use monitored anesthesia care (MAC). Immediately prior to administration of medications, the patient was re-assessed for adequacy to receive sedatives. The heart rate, respiratory rate, oxygen saturations, blood pressure, adequacy of pulmonary ventilation, and response to care were monitored throughout the procedure. The physical status of the patient was re-assessed after the procedure. After I obtained informed consent, the scope was passed under direct vision. Throughout the procedure, the patient's blood pressure, pulse, and oxygen saturations were monitored continuously. The colonoscope was introduced through the anus and advanced to the terminal ileum. The colonoscopy was performed without difficulty. The patient tolerated the procedure well. The quality of the bowel preparation was adequate. The terminal ileum, ileocecal valve, appendiceal orifice, and rectum were photographed. Scope In: 1:08:32 PM Scope Withdrawal Time 0 hours 15 minutes 26 seconds Scope Out: 1:29:46 PM Total Procedure Duration Time 0 hours 21 minutes 14 seconds Findings: The perianal and digital rectal examinations were normal. Three sessile polyps were found in the rectum and hepatic flexure. The polyps were 1 to 2 mm in size. These polyps were removed with a hot snare. Resection and retrieval were complete. Verification of patient identification for the specimen was done. Estimated blood loss was minimal. A few small and large-mouthed diverticula were found in the recto-sigmoid colon and sigmoid colon. A patchy area of the terminal ileum was congested. Biopsies were taken with a cold forceps for histology. Verification of patient identification for the specimen was done. Estimated blood loss was minimal. Impression: - Three 1 to 2 mm polyps in the rectum and at the hepatic flexure, removed with a hot snare. Resected and retrieved. - Diverticulosis in the recto-sigmoid colon and in the sigmoid colon. - Congested mucosa in the terminal ileum. Biopsied. Recommendation: - Discharge patient to home. - Resume previous diet. - Continue present medications. - Await pathology results. - Repeat colonoscopy in 3 years for surveillance. Procedure Code(s): --- Professional --- 29363, Colonoscopy, flexible; with removal of tumor(s), polyp(s), or other lesion(s) by snare technique 47342, 59, Colonoscopy, flexible; with biopsy, single or multiple CPT copyright 2021 [employer]. All rights reserved. The codes documented in this report are preliminary and upon historical records administrator review may be revised to meet current compliance requirements. Joe Mckeon DO 03/08/2024 1:35:40 PM This report has been signed electronically. Number of Addenda: 0 Note Initiated On: 03/08/2024 12:58 PM
--- NOTE | 2024-03-08 13:36 | OP.CCLET_ITS ---
03/08/2024 Alecia Podlogar Re : Colonoscopy procedure for Ara Prado Dear Podlogar This procedure was performed on Friday, March 08, 2024. My impressions and recommendations are as follows: Impressions : - Three 1 to 2 mm polyps in the rectum and at the hepatic flexure, removed with a hot snare. Resected and retrieved. - Diverticulosis in the recto-sigmoid colon and in the sigmoid colon. - Congested mucosa in the terminal ileum. Biopsied. Recommendations : - Discharge patient to home. - Resume previous diet. - Continue present medications. - Await pathology results. - Repeat colonoscopy in 3 years for surveillance. My findings are described in the full procedure note, which is enclosed. If I can be of further assistance, please feel free to contact me at . Sincerely, oJe Mckeon, 03/08/2024 1:35:40 PM This report has been signed electronically.
--- NOTE | 2024-03-08 13:40 | PCM.POST.ANE ---
Anesthesia: Postop Eval I Current Vital Signs Temperature: 97 F Pulse Rate: 82 Blood Pressure: 111/68 Respiratory Rate: 20 Pulse Ox: 98 Oxygen Delivery Method: Room Air Assessment Airway patent: Yes Spontaneous unlabored respirations: Yes Mental status: Awake nausea: No Vomiting: No Anesthesia Complication: No Fluid Hydration Crystalloid volume administer (ml): 10 Total IV fluid infused: 10 Progress Note Anesthesia document: Postop Eval 1 completed: Yes
--- NOTE | 2024-03-08 13:51 | POSTOPAN2_ITS ---
Anesthesia Postop Eval I Sum Postop Eval Completion status Anesthesia document: Postop Eval 1 completed: Yes Anesthesia Postop Eval I Summary Anesthesia Postop Eval I Summary: Anesthesia Postop Eval I: Assessment Summary Airway patent Yes 03/08/24 13:42 BUSINESS SERVICES SPECIALIST [email or web address] Spontaneous unlabored Yes 03/08/24 13:42 BUSINESS SERVICES SPECIALIST [email or web address] respirations Mental status Awake 03/08/24 13:42 BUSINESS SERVICES SPECIALIST [email or web address] nausea No 03/08/24 13:42 BUSINESS SERVICES SPECIALIST [email or web address] Vomiting No 03/08/24 13:42 BUSINESS SERVICES SPECIALIST [email or web address] Anesthesia Postop Eval I: Fluid Summary Crystalloid volume administer 10 03/08/24 13:42 BUSINESS SERVICES SPECIALIST [email or web address] (ml) Colloids volume administered ( ml) Blood Product volume administered (ml) Total IV fluid infused 10 03/08/24 13:42 BUSINESS SERVICES SPECIALIST [email or web address] Anesthesia Postop Eval I: Summary Notes Anesthesia Complication No 03/08/24 13:42 BUSINESS SERVICES SPECIALIST [email or web address] Anesthesia Complication Comment: Post-operative progress note Anesthesia: Postop Eval II Evaluation Mental status: Awake Pain Level: 0 nausea: No Vomiting: No
--- NOTE | 2024-03-08 13:51 | PCM.POSTANE2 ---
Anesthesia Postop Eval I Sum Postop Eval Completion status Anesthesia document: Postop Eval 1 completed: Yes Anesthesia Postop Eval I Summary Anesthesia Postop Eval I Summary: Anesthesia Postop Eval I: Assessment Summary Airway patent Yes 03/08/24 13:42 ENGRAVINGS [email or web address] Spontaneous unlabored Yes 03/08/24 13:42 ENGRAVINGS [email or web address] respirations Mental status Awake 03/08/24 13:42 ENGRAVINGS [email or web address] nausea No 03/08/24 13:42 ENGRAVINGS [email or web address] Vomiting No 03/08/24 13:42 ENGRAVINGS [email or web address] Anesthesia Postop Eval I: Fluid Summary Crystalloid volume administer 10 03/08/24 13:42 ENGRAVINGS [email or web address] (ml) Colloids volume administered ( ml) Blood Product volume administered (ml) Total IV fluid infused 10 03/08/24 13:42 ENGRAVINGS [email or web address] Anesthesia Postop Eval I: Summary Notes Anesthesia Complication No 03/08/24 13:42 ENGRAVINGS [email or web address] Anesthesia Complication Comment: Post-operative progress note Anesthesia: Postop Eval II Evaluation Mental status: Awake Pain Level: 0 nausea: No Vomiting: No
== END 2024-03-08 14:28 | disposition home or self-care (01) ==
LOC: EN 11:10 → AC 11:12
PROVIDERS: Anesthesiology; PCP Nurse Practitioner Primary Care; Referring Provider Nurse Practitioner Primary Care; Visit Provider Internal Medicine Gastroenterology
PROC: 0DJD8ZZ Inspection of Lower Intestinal Tract, Via Natural or Artificial Opening Endoscopic (ICD-10-PCS; CPT 45378; principal; 2024-03-08 12:25)
DX: K62.6 Ulcer of anus and rectum (principal); K63.5 Polyp of colon; K62.1 Rectal polyp; K58.1 Irritable bowel syndrome with constipation; K63.89 Other specified diseases of intestine; K57.30 Diverticulosis of large intestine without perforation or abscess without bleeding; E28.2 Polycystic ovarian syndrome; Z79.3 Long term (current) use of hormonal contraceptives; Z80.0 Family history of malignant neoplasm of digestive organs; Z90.49 Acquired absence of other specified parts of digestive tract; Z87.891 Personal history of nicotine dependence
CPT/HCPCS: 45385; 45380; 81025; 88305; A4216; J2405

== ENCOUNTER → 2024-03-21 | Outpatient (CLI) | payer BC, SELFPAY ==
--- OUTSIDE RECORDS SUMMARY | 2024-03-20 19:39 | XMS RPT_ITS | CCD ---
Author Organization [facility] Care Team Providers Care Bookkeeping Clerks Supervisor Name Role Phone Unavailable Primary Care Provider Unavailabl e Podlogar FLOUR WORKER.Alecia GIBSON Primary Care Provider Podlogar FLOUR WORKER.Alecia GIBSON Primary Care Provider Kim Celestin MD Primary Care Provider Podlogar FLOUR WORKER.Alecia GIBSON Unavailable Kim Celestin MD Primary Care Provider EMILY NEUMANN Attending Unavailable KIM CELESTIN Primary Care Unavailab le UCHE ALBERTO Attending Unavailable KIM CELESTIN Primary Care Unavailab le PODLOGAR, ALECIA Referring Unavailable KIM CELESTIN Primary Care Unavailab le PODLOGAR, ALECIA Referring Unavailable PODLOGARALECIA Attending Unavailable KIM CELESTIN Primary Care Unavailab le KIM CELESTIN Primary Care Unavailab le KIM CELESTIN Primary Care Unavailab le KIM CELESTIN Primary Care Unavailab SHWETA Ashford Attending Unavailable PODLOGARALECIA Referring Unavailable KIM CELESTIN Primary Care Unavailab le PODLOGAR, ALECIA Referring Unavailable KIM CELESTIN Primary Care Unavailab le PODLOGAR, ALECIA Referring Unavailable KIM CELESTIN Primary Care Unavailab le PODLOGAR, ALECIA Referring Unavailable KIM CELESTIN Primary Care Unavailab le PODLOGAR, ALECIA Referring Unavailable EMILY NEUMANN Attending Unavailable KIM CELESTIN Primary Care Unavailab le EMILY NEUMANN Referring Unavailable KIM CELESTIN Primary Care Unavailab le EMILY NEUMANN Referring Unavailable KIM CELESTIN Primary Care Unavailab le Medications Current Medications Medication Drug Class(es) Dates Sig (Normalized) Sig (Original) cetirizine hydrochloride 10 mg oral tablet (2 sources) Histamine-1 Receptor Antagonist take 1 tablet by mouth once daily cetirizine (ZYRTEC) 10 mg tablet Take 10 mg by mouth once daily. 0 Active Desogestrel / Ethinyl Estradiol (20 sources) Progestin, Estrogen take 1 tablet by mouth once daily Desogestrel-Ethiny l Estradiol 0.15-0.03 mg per tablet Take 1 tablet by mouth once daily. Active take 1 tablet by mouth once willie y Desogestrel-Ethinyl Estradiol 0.15-0.03 mg per tablet Take 1 tablet by mouth once daily. 0 Active take 1 tablet by mary th once daily, then take 0.15 tablet by mouth once Desogestrel-Ethinyl Estradiol (APRI) 0.1 5- 0.03 mg per tablet Take 1 tablet by mouth once daily. 0 Active Comment on above: Take 1 tablet by mary th once daily. 12 hr fexofenadine hydrochloride 60 mg / pseudoephedrine hydrochloride 120 mg extended release oral tablet (13 sources) alpha-Adrenergic Agonist, Histamine-1 Receptor Antagonist take 1 tablet by mouth twice daily fexofenadine-pseudoep hedrine (CLARENCE D) 60-120 mg per tablet Take 1 tablet by mouth twice daily. Active Comment on above: Take 1 tablet by mary th twice daily. hydrocortisone 25 mg/ml topical cream (1 source) Corticosteroid Start: End: hydrocortisone (ANUSOL-HC) 2.5 % rectal cream Indications: Internal hemorrhoids by RECTAL route two times a day for 14 days. 28 g 0 01/05/2024 01/19/2024 Active nitrofurantoin, macrocrystals 25 mg / nitrofurantoin, monohydrate 75 mg oral capsule (2 sources) Nitrofuran Antibacterial Start: End: take 1 capsule by mouth twice daily nitrofurantoin monohydrate and macrocrystal (MACROBID) 100 mg capsule Indications: Recurrent UTI (urinary tract infection) Take 1 capsule by mouth two times a day for 5 days. 10 capsule 0 07/23/2023 07/28/2023 Active Start: 04-06-2023 End: 04-11-2023 take 1 capsule by mouth twice daily at mealtime nitrofurantoin monohydrate and macrocrystal (MACROBID) 100 mg capsule Take 1 capsule by mouth two times a day with meals for 5 days. 10 capsule 0 04/06/2023 04/11/2023 Active Comment on above: Take 1 capsule by mo [facility] two times a day with meals for 5 days. Take 1 capsule by mo [facility] two times a day for 5 days. pantoprazole 20 mg delayed release oral tablet (4 sources) Proton Pump Inhibitor Start: 2 End: take 1 tablet by mouth once daily before breakfast pantoprazole DR (PROTONIX) 20 mg tablet TAKE 1 TABLET BY MOUTH DAILY BEFORE BREAKFAST. TAKE ON EMPTY STOMACH, 1/2 HR BEFORE MEAL. 30 tablet 5 12/07/2021 01/06/2022 Active Start: 07-27-2021 End: 11-09-2021 take 1 tablet by mouth once daily pantoprazole DR (PROTONIX) 40 mg tablet TAKE 1 TABLET BY MOUTH EVERY DAY 90 tablet 1 07/27/2021 11/09/2021 Discontinued Comment on above: Take 1 tablet by mary th daily before breakfast. Take on empty stomach, 1/2 hr before meal. TAKE 1 TABLET BY MARY TH EVERY DAY Completed/Discontinued Medications Medication Drug Class(es) Dates Sig (Normalized) Sig (Original) iv contrast (will be provided with radiology test) (1 source) Start: 01-28-2022 End: 01-29-2022 iv contrast (will be provided with radiology test) Indications: Liver lesion MRI Liver Inject, intravenously, once for 1 dose. No IV access, insert saline lock prior to the beginning of sedation, infusion, injection of imaging exam. Discontinue saline lock post exam. If Pt. has a central line or IVAD, may access for administration according to line specific nursing protocol. Once exam is complete flush line and de-access according to line specific nursing protocol in the MR contrast administration guidelines link. 1 Each 0 01/28/2022 01/29/2022 Comment on above: MRI Liver Inject, in travenously, once for 1 dose. No IV access, insert saline lock prior to the beginning of sedation, infusion, injection of imaging exam. Discontinue saline lock post exam. If Pt. has a central line or IVAD, may access for administration according to line specific nursing protocol. Once exam is complete flush line and de-access according to line specific nursing protocol in the MR contrast administration guidelines link. Problems Active Problems Problem Classification Problem Date Documented Da te Episodic/Chronic Abdominal pain (4 sources) Right upper quadrant pain; Translations: [Right upper quadrant pain] Episodic Biliary tract disease (3 sources) Cholelithiasis without obstruction; Translations: [Calculus of gallbladder without cholecystitis without obstruction] Episodic Genitourinary symptoms and ill-defined conditions (1 source) Scalding pain on urination ; Translations: [Dysuria] 07-23-2023 Episodic Hemorrhoids (2 sources) Internal hemorrhoids; Translations: [Other hemorrhoids] Onset: 01-05-2024 01-05-2024 Episodic Nausea and vomiting (3 sources) Nausea; Translations: [Nausea] Episodic Other connective tissue disease (1 source) Swelling of left foot; Translations: [Other specified soft tissue disorders] 12-05-2022 Episodic Other connective tissue disease (1 source) Pain of left lower leg; Translations: [Pain in left lower leg] 09-22-2023 Episodic Other gastrointestinal disorders (1 source) Irritable bowel syndrome; Translations: [Mixed irritable bowel syndrome] 01-05-2024 Chronic Other gastrointestinal disorders (1 source) Mixed irritable bowel syndrome; Translations: [Irritable bowel syndrome with constipation and diarrhea] Onset: 01-05-2024 Chronic Other liver diseases (2 sources) Lesion of liver; Translations: [Liver disease, unspecified] Chronic Other nervous system disorders (1 source) Other chronic pain; Translations: [Chronic pain of both knees] Onset: 08-08-2023 Chronic Other nutritional; endocrine; and metabolic disorders (1 source) Morbid obesity; Translations: [Morbid (severe) obesity due to excess calories] Chronic Other nutritional; endocrine; and metabolic disorders (14 sources) Body mass index 40+ - severely obese; Translations: [Morbid (severe) obesity due to excess calories] Onset: 12-05-2022 12-05-2022 Chronic Screening and history of mental health and substance abuse codes (2 sources) Patient encounter status; Translations: [Encounter for screening examination for other mental health and behavioral disorders] Onset: 01-05-2024 01-05-2024 Episodic Urinary tract infections (2 sources) Acute urinary tract infection; Translations: [Urinary tract infection, site not specified] 04-06-2023 Episodic Past or Other Problems Problem Classification Problem Date Documented Date Episodic/Chronic Joint disorders and dislocations; trauma-related (2 sources) Subluxation of patellofemoral joint; Translations: [Unspecified subluxation of unspecified patella, initial encounter] Onset: 10-02-2023 10-02-2023 Episodic Other connective tissue disease (1 source) Pain in left lower leg; Translations: [Pain and swelling of left lower leg] Onset: 09-01-2023 Episodic Other connective tissue disease (1 source) Other specified soft tissue disorders; Translations: [Pain and swelling of left lower leg] Onset: 09-01-2023 Episodic Other non-traumatic joint disorders (15 sources) Pain in right knee; Translations: [Pain in joint, lower leg] Onset: 08-08-2023 08-08-2023 Episodic Other non-traumatic joint disorders (1 source) Pain in left knee; Translations: [Chronic pain of both knees] Onset: 08-08-2023 Episodic Results Test Name Value Interpretation Reference Range Raymond Weber 01-05-2024 CNOV Office Visit ([facility] ) [place]AU[place]ARA Miles ([id number]) 1990 F Date Time Provider Department 01/05/24 2:40 PM EMILY NEUMANN [facility] During your visit today, we recorded the following information about you: Pulse Respiration Blood pressure Weight 77/minute 14/minute 112/80 119.3 kg Emily Neumann APRN.SECURITY AND COMPLIANCE ANALYST 01/05/2024 2:32 PM Signed Chief Complaint Patient presents with: Rectal Problem: X 2 months HPI Ara Ginger Gonzalez is a 33 year old female who presents here today for Above Complaints.. Patient presents for rectal pain with BM x2 months. Patient reports she has always had problems with constipation and since having her gallbladder out she has alternating constipation and diarrhea. Patient reports blood when wiping after BM at times. Past medical history, appointments, medications, allergies reviewed. Previous Medical History PAST MEDICAL HISTORY No date: Cholelithiasis No date: Known health problems: none Previous Surgical History PAST SURGICAL HISTORY 04/05/2022: LAPAROSCOPIC CHOLECYSTECTOMY No date: TONSILLECTOMY HX Family History FAMILY HISTORY Problem Relation Age of Onset Diabetes Mother Hypertension Father other (heart conditions) Father No Known Problems Brother Diabetes Maternal Grandmother No Known Problems Maternal Grandfather No Known Problems Paternal Grandmother Heart Attack Paternal Grandfather Colon Cancer No Family History Patient Allergies ALLERGIES No Known Allergies Current Medications Current Outpatient Medications on File Prior to Visit Medication Sig cetirizine (ZYRTEC) 10 mg tablet Take 10 mg by mouth once daily. fexofenadine-pseudoeph edrine (CLARENCE D) 60-120 mg per tablet Take 1 tablet by mouth twice daily. (Patient not taking: Reported on 10/02/2023) Desogestrel-Ethinyl Estradiol 0.15-0.03 mg per tablet Take 1 tablet by mouth once daily. No current facility-administered medications on file prior to visit. Social History Social History Tobacco Use Smoking status: Never Smokeless tobacco: Never Vaping Use Vaping Use: Former Substances: Nicotine, Flavoring Devices: Digifeyeble tank Substance Use Topics Alcohol use: Yes Comment: rarely Drug use: Never Review of Symptoms REVIEW OF SYSTEMS SEE HPI EXAM: BP 112/80 Pulse 77 Resp 14 Wt 119.3 kg (263 lb) LMP 03/09/2022 (Exact Date) BMI 46.59 kg/m? General Appearance: Well appearing, alert, in no acute distress, well-hydrated, well nourished.. Abdomen: Normal abdominal exam, Abdomen soft, non-tender. Bowel sounds normal. No masses, organomegaly. Rectal: Negative findings: perianal area normal, anus normal, Positive findings: pain with digital rectal exam to anterior aspect of rectum. No blood noted. Health Maintenance List Depression Screening Never done Anxiety Screening Never done Hepatitis C Screening Never done HIV Screening Never done Hepatitis B Vaccine(1 of 3 - 19+ 3-dose series) Never done Cervical Cancer Screening Never done Covid-19 Vaccine(2022-24 season) due on 01/27/2023 Influenza Vaccine(1) due on 01/28/2024 DTaP,Tdap,Td Vaccine(2 - Td or Tdap) due on 08/06/2033 HPV Vaccine Aged Out ASSESSMENT/PLAN: 1. Irritable bowel syndrome with constipation and diarrhea - ICD9: 564.1, ICD10: K58.2 (primary diagnosis) - CONSULT TO GASTROENTEROLOGY 2. Internal hemorrhoids - ICD9: 455.0, ICD10: K64.8 - HYDROCORTISONE 2.5 % TOPICAL CREAM WITH PERINEAL APPLICATOR KIARA Martini Danielle, APRN.CNP 01/05/2024 2:33 PM Signed Addended by: EMILY NEUMANN on: 01/05/2024 02:33 PM Modules accepted: Orders Allergies As of Date: 01/05/2024 (No Known Allergies) Date Reviewed: 01/05/2024 Reviewed by: Ashley Harris MA - Fully Assessed Reason for Visit: Rectal Problem [93] Cmt: X 2 months Primary Visit Diagnosis:Irritable bowel syndrome with constipation and diarrhea [K58.2] Other Visit Diagnoses:Internal hemorrhoids [K64.8] Attention deficit hyperactivity disorder (ADHD) evaluation [Z13.39] Order(s):CONSULT TO GASTROENTEROLOGY [9010] Order #: [id number]: 1 FUTURE hydrocortisone (ANUSOL-HC) 2.5 % rectal creamby RECTAL route two times a day for 14 days.Disp: 28 gRfl: 0 CONSULT TO PSYCHIATRY [9035] Order #: [id number]: 1 FUTURE Prescriptions as of 01/05/2024 - hydrocortisone (ANUSOL-HC) 2.5 % rectal cream by RECTAL route two times a day for 14 days. - cetirizine (ZYRTEC) 10 mg tablet Take 10 mg by mouth once daily. - fexofenadine-pseudoeph edrine (CLARENCE D) 60-120 mg per tablet Take 1 tablet by mouth twice daily. - Desogestrel-Ethinyl Estradiol 0.15-0.03 mg per tablet Take 1 tablet by mouth once daily. Problem List As Of Date 01/05/2024 Noted Resolved Obesity, Class III, BMI >= 40 [E66.01] 12/05/2022 Chronic pain of both knees [M25.561, M25.562, G*08/14/2023 Prescriptions ordered this encounter Disp (more content not included)... Normal [facility] CNOVon 10-02-2023 CNOV Office Visit ([facility] ) ARA GONZALEZ ([id number]) 1990 F Date Time Provider Department 10/02/23 1:15 PM UCHE ALBERTO During your visit today, we recorded the following information about you: Uche Alberto MD 10/02/2023 2:23 PM Signed Uche Alberto MD Department of Orthopaedics Orthopaedics [address] [place] [id number] Dept: [phone] Dept October 02, 2023 CHIEF COMPLAINT: New Patient and Knee Pain of the Left Knee and New Patient and Knee Pain of the Right Knee HPI Patient referred by PCP's office for B/L patellar subluxation. Reports crunching and pain in knees. Started 6 months ago after she was dancing for most of the evening at a wedding. Pain is intermittent but worse and more frequent in L knee. Notices pain with activity such as pedaling a bike. XR completed on 08/07. Completed Physical Therapy and is continuing home exercises. AMB ROOMING INTAKE FLOWSHEET DATA Pain Pain Level: 7 Pain Location: Other: See Comment (B/L knees) Description: Aching, Sharp Duration Amount of Time: 6 Duration Units: Months Frequency: Intermittent Intervention/Comfort measure: Massage, Reposition, Relaxation, Medication (naproxen) Patient presents with: Left Knee - New Patient, Knee Pain Right Knee - New Patient, Knee Pain ASSESSMENT: S83.003A Subluxation of patellofemoral joint, unspecified laterality, initial encounter PLAN: She has been doing some therapy and the left knee is calm down quite a bit. We had a lengthy discussion about her maltracking. She is going to continue with some intermittent anti-inflammatories and we will follow along with her therapy program. FOLLOW UP INSTRUCTIONS: As needed OBJECTIVE: Ms. Ara Gonzalez is a pleasant 33 year old in no apparent distress. Gen:LMP 03/09/2022 nl development, obese, no deformities ENT: Normocephalic, normal hearing, moist mucosa CV: Pulses:DP/PT= 2+ and symmetric, capillary refill < 2 secs, no peripheral edema/varicosities Skin: no rash, bruising or lesions. Good turgor. Psych: cooperative and appropriate, alert and oriented x 3, good mood and affect. Musculoskeletal: Patient walks without antalgia. Obvious tilt to bilateral patella. Mild crepitance on the left greater than right. Good range of motion. No effusion. No further instability noted. IMAGING: IMPRESSION: Bilateral patellar subluxation. Servomechanism Assembler: WERNER Transcribe Date/Time: Aug 09 2023 5:23P Dictated by : ANDREAS MELGAR MD This examination was interpreted and the report reviewed and electronically signed by: ANDREAS MELGAR MD on Aug 09 2023 5:24PM EST Results-Findings * * *Final Report* * * DATE OF EXAM: Aug 08 2023 12:33PM WOX [id number] - XR KNEE 4V AP/PA/LAT/MERCH RICHARD / PROCEDURE REASON: multiple diagnoses * * * * Physician Interpretation * * * * EXAM TITLE: XR KNEE 4V AP/PA/LAT/MERCH RICHARD EXAM DATE/TIME: 08/08/2023 12:33 PM COMPARISON: None. CLINICAL INDICATION/HISTORY: Chronic knee pain. TECHNIQUE: AP/PA, lateral and sunrise views of both knees are presented. FINDINGS: No acute fracture seen. Bilateral patellar mild lateral subluxation noted on sunrise view. Tiny bone spur seen along the left patella. The joint spaces are well preserved. There is no evidence of joint effusion. The mineralization of the bones is normal. There is no significant soft tissue swelling. Supporting Subjective Information Below: Past Medical History: PAST MEDICAL HISTORY Diagnosis Date Cholelithiasis Known health problems: none Past Surgical History: PAST SURGICAL HISTORY Procedure Laterality Date LAPAROSCOPIC CHOLECYSTECTOMY 04/05/2022 TONSILLECTOMY HX Family History: FAMILY HISTORY Problem Relation Age of Onset Diabetes Mother Hypertension Father other (heart conditions) Father No Known Problems Brother Diabetes Maternal Grandmother No Known Problems Maternal Grandfather No Known Problems Paternal Grandmother Heart Attack Paternal Grandfather Colon Cancer No Family History Social History: Social History Tobacco Use Smoking status: Never Smokeless tobacco: Never Vaping Use Vaping Use: Former Substances: Nicotine, Flavoring Devices: Refillable tank Substance Use Topics Alcohol use: Yes Comment: rarely Drug use: Never Medications: Current Outpatient Medications Medication Sig cetirizine (ZYRTEC) 10 mg tablet Take 10 mg by mouth once daily. Desogestrel-Ethinyl Estradiol 0.15-0.03 mg per tablet Take 1 tablet by mouth once daily. fexofenadine-pseudoeph edrine (CLARENCE D) 60-120 mg per tablet Take 1 tablet by mouth twice daily. (Patient not taking: Reported on 10/02/2023) No current facility-administered medications for this visit. Allergies: Patient has no known allergies. ROS: General (negative for fatigue, malaise, weight loss/gain) CHARLEEN (more content not included)... Normal [facility] 09-25-2023 [facility] Telephone ([facility]) ARA GONZALEZ ([id number]) 1990 F Date Time Provider Department 09/25/23 EMILY NEUMANN [facility] During your visit today, we recorded the following information about you: Emily Neumann APRN.[facility] 09/25/2023 8:30 AM Signed Please let patient know her blood flow studies are normal. Ashley Harris MA 09/25/2023 8:49 AM Signed Pt notified and verbalized understanding Ashley Harris MA Allergies As of Date: 09/25/2023 (No Known Allergies) Date Reviewed: 09/01/2023 Reviewed by: Ashley Harris MA - Fully Assessed Reason for Visit: Results [95] Prescriptions as of 09/25/2023 - fexofenadine-pseudoeph edrine (CLARENCE D) 60-120 mg per tablet Take 1 tablet by mouth twice daily. - Desogestrel-Ethinyl Estradiol 0.15-0.03 mg per tablet Take 1 tablet by mouth once daily. Problem List As Of Date 09/25/2023 Noted Resolved Obesity, Class III, BMI >= 40 [E66.01] 12/05/2022 Chronic pain of both knees [M25.561, M25.562, G*08/14/2023 Encounter Status:Closed by ASHLEY HARRIS CMA on 09/25/23 [facility] 09-22-2023 CNPN Telephone (FAMWS) ARA GONZALEZ ([id number]) 1990 F Date Time Provider Department 09/22/23 EMILY NEUMANN [facility] During your visit today, we recorded the following information about you: Allergies As of Date: 09/22/2023 (No Known Allergies) Date Reviewed: 09/01/2023 Reviewed by: Ashley Harris MA - Fully Assessed Primary Visit Diagnosis:Pain and swelling of left lower leg [M79.662, M79.89] Order(s):US LEG VEIN DVT UNL VAS LAB [[id number]] Order #: [id number] FUTURE Prescriptions as of 09/22/2023 - fexofenadine-pseudoeph edrine (CLARENCE D) 60-120 mg per tablet Take 1 tablet by mouth twice daily. - Desogestrel-Ethinyl Estradiol 0.15-0.03 mg per tablet Take 1 tablet by mouth once daily. Problem List As Of Date 09/22/2023 Noted Resolved Obesity, Class III, BMI >= 40 [E66.01] 12/05/2022 Chronic pain of both knees [M25.561, M25.562, G*08/14/2023 Encounter Status:Closed by EMILY NEUMANN on 09/22/23 [facility] PVR ANK PRESS RICHARD VAS LABon 09-22-2023 PVR ANK PRESS RICHARD VAS LAB Non-Invasive Vascular Laboratory Pending Sale To [facility] Lower Extremity Arterial Physiology Study Bilateral/Complete Date of service/time: 09/22/2023 10:57:59 AM Name: MRS. ARA GONZALEZ Date of : 1990 Age: 33 years Gender: F Clinical Indication Left leg pain. TECHNIQUE -------- An arterial physiological examination was performed, including measurement of blood pressures using continuous wave Doppler and recording of plethysmographic with or without Doppler waveforms at the below-mentioned limb segments. FINDINGS -------- RIGHT SIDE AT REST Right Doppler Waveforms Dorsalis pedis: Multiphasic. Post tibial: Multiphasic. Right Pressures Brachial: 136 mmHg Ankle dorsalis pedis: 158 mmHg SOLEDAD: 1.16 Ankle posterior tibial: 160 mmHg SOLEDAD: 1.18 Digit: 154 mmHg Right PVR Waveforms Ankle: Normal. Digit: Normal. LEFT SIDE AT REST Left Doppler Waveforms Dorsalis pedis: Multiphasic. Post tibial: Multiphasic. Left Pressures Brachial: 135 mmHg Ankle dorsalis pedis: 152 mmHg SOLEDAD: 1.12 Ankle posterior tibial: 166 mmHg SOLEDAD: 1.22 Digit: 155 mmHg Left PVR Waveforms Ankle: Normal. Digit: Normal. IMPRESSION RIGHT SIDE Resting right ankle brachial index: 1.18 Right toe brachial index: 1.13 Normal ankle brachial index at rest in the right leg. Normal toe brachial index at rest in the right leg. Right ankle: Normal at rest. LEFT SIDE Resting left ankle brachial index: 1.22 Left toe brachial index: 1.14 Normal ankle brachial index at rest in the left leg. Normal toe brachial index at rest in the left leg. Left ankle: Normal at rest. Technologist: Oksana Truong RVT, RDMS Ordering physician: EMILY NEUMANN Interpreting physician: JONATHAN Doe DO Final CC [employer] [facility] Image : [id number] See Link below for Image Normal [facility] US LEG VEIN DVT UNL VAS LABo n 09-22-2023 US LEG VEIN DVT UNL VAS LAB Non-Invasive Vascular Laboratory Pending Sale To [facility] Lower Extremity Venous Duplex Unilateral - Left Date of service/time: 09/22/2023 10:58:37 AM Name: MRS. ARA GONZALEZ Date of : 1990 Age: 33 years Gender: F Clinical Indication Lower extremity swelling. Left TECHNIQUE -------- A venous duplex ultrasound examination was performed, including grayscale imaging with compression maneuvers and color Doppler and spectral Doppler examination with augmentation maneuvers and response to respiration of the below mentioned veins. FINDINGS -------- RIGHT SIDE Common femoral vein Doppler: normal flow. LEFT SIDE Distal external iliac vein Doppler: normal flow. Compression: normal. Common femoral vein Doppler: normal flow. Compression: normal. Femoral vein Doppler: normal flow. Compression: normal. Popliteal vein Doppler: normal flow. Compression: normal. Posterior tibial veins Compression: normal. Peroneal veins Compression: normal. Great saphenous vein Compression: normal. Small saphenous vein Compression: normal. IMPRESSION RIGHT SIDE - DEEP VEINS Spontaneous and respirophasic flow noted in the common femoral vein. LEFT SIDE - DEEP VEINS Negative for acute deep vein thrombosis. LEFT SIDE - SUPERFICIAL VEINS Negative for superficial thrombophlebitis in the great saphenous vein and small saphenous vein. Technologist: Oksana Truong RVT, RDMS Ordering physician: EMILY NEUMANN Interpreting physician: JONAHTAN Doe DO Final CC [employer] Image : 1..[id number] [id number] See Link below for Image Normal [facility] Lower extremity veinon Non-Invasive Vascular Laboratory Pending Sale To [facility] Lower Extremity Venous Duplex Unilateral - Left Date of service/time: 09/22/2023 10:58:37 AM Name: MRS. ARA GONZALEZ Date of : 1990 Age: 33 years Gender: F Clinical Indication Lower extremity swelling. Left TECHNIQUE -------- A venous duplex ultrasound examination was performed, including grayscale imaging with compression maneuvers and color Doppler and spectral Doppler examination with augmentation maneuvers and response to respiration of the below mentioned veins. FINDINGS -------- RIGHT SIDE Common femoral vein Doppler: normal flow. LEFT SIDE Distal external iliac vein Doppler: normal flow. Compression: normal. Common femoral vein Doppler: normal flow. Compression: normal. Femoral vein Doppler: normal flow. Compression: normal. Popliteal vein Doppler: normal flow. Compression: normal. Posterior tibial veins Compression: normal. Peroneal veins Compression: normal. Great saphenous vein Compression: normal. Small saphenous vein Compression: normal. IMPRESSION RIGHT SIDE - DEEP VEINS Spontaneous and respirophasic flow noted in the common femoral vein. LEFT SIDE - DEEP VEINS Negative for acute deep vein thrombosis. LEFT SIDE - SUPERFICIAL VEINS Negative for superficial thrombophlebitis in the great saphenous vein and small saphenous vein. Technologist: Oksana Truong RVT, [facility] Ordering physician: EMILY NEUMANN Interpreting physician: JONATHAN Doe DO Final See Link below for Image [facility] CNOVon 09-01-2023 CNOV Office Visit (FAMPWS ) ARA GONZALEZ ([id number]) 1990 F Date Time Provider Department 09/01/23 1:00 PM EMILY NEUMANN During your visit today, we recorded the following information about you: Pulse Respiration Blood pressure Weight 68/minute 14/minute 130/76 119.3 kg Emily Neumann APRN.SECURITY AND COMPLIANCE ANALYST 09/01/2023 1:06 PM Signed Chief Complaint Patient presents with: Leg Pain: Left leg pain and swelling X 5 months HPI Ara Gonzalez is a 33 year old female who presents here today for Above Complaints.. Patient presents for left leg swelling and pain. Patient reports her left lower leg is lumpy and swells frequently. Patient denies redness of warmth to left leg. Past medical history, appointments, medications, allergies reviewed. Previous Medical History PAST MEDICAL HISTORY Diagnosis Date Cholelithiasis Known health problems: none Previous Surgical History PAST SURGICAL HISTORY Procedure Laterality Date LAPAROSCOPIC CHOLECYSTECTOMY 04/05/2022 TONSILLECTOMY HX Family History FAMILY HISTORY Problem Relation Age of Onset Diabetes Mother Hypertension Father other (heart conditions) Father No Known Problems Brother Diabetes Maternal Grandmother No Known Problems Maternal Grandfather No Known Problems Paternal Grandmother Heart Attack Paternal Grandfather Colon Cancer No Family History Patient Allergies ALLERGIES No Known Allergies Current Medications Current Outpatient Medications on File Prior to Visit Medication Sig fexofenadine-pseudoeph edrine (CLARENCE D) 60-120 mg per tablet Take 1 tablet by mouth twice daily. Desogestrel-Ethinyl Estradiol 0.15-0.03 mg per tablet Take 1 tablet by mouth once daily. No current facility-administered medications on file prior to visit. Social History Social History Tobacco Use Smoking status: Never Smokeless tobacco: Never Vaping Use Vaping Use: Former Substances: Nicotine, Flavoring Devices: RefDreamitizeble tank Substance Use Topics Alcohol use: Yes Comment: rarely Drug use: Never Review of Symptoms REVIEW OF SYSTEMS SEE HPI EXAM: BP 130/76 Pulse 68 Resp 14 Wt 119.3 kg (263 lb) LMP 03/09/2022 (Exact Date) BMI 46.59 kg/m? General Appearance: Well appearing, alert, in no acute distress, well-hydrated, well nourished.. Extremities: Positive findings: Generalized non pitting edema to left leg. . Health Maintenance List Hepatitis C Screening Never done HIV Screening Never done Hepatitis B Vaccine(1 of 3 - 19+ 3-dose series) Never done Pap Testing Never done HPV Testing Never done Covid-19 Vaccine(2022- season) due on 01/27/2023 Behavioral Health Screening Never done Influenza Vaccine(Season Ended) due on 01/28/2024 DTaP,Tdap,Td Vaccine(2 - Td or Tdap) due on 08/06/2033 HPV Vaccine Aged Out ASSESSMENT/PLAN: 1. Pain and swelling of left lower leg - ICD9: 729.5, 729.81, ICD10: M79.662, M79.89 - PVR ANK PRESS R[facility]ARD [facility] - US DVT LOWER LEFT Emily Neumann APRN.SECURITY AND COMPLIANCE ANALYST Allergies As of Date: 09/01/2023 (No Known Allergies) Date Reviewed: 09/01/2023 Reviewed by: Ashley Harris MA - Fully Assessed Reason for Visit: Leg Pain [1219] Cmt: Left leg pain and swelling X 5 months Primary Visit Diagnosis:Pain and swelling of left lower leg [M79.662, M79.89] Order(s):PVR ANK PRESS RICHARD [facility] [[id number]] Order #: [id number] FUTURE US DVT LOWER LEFT [[id number]] Order #: [id number] FUTURE Prescriptions as of 09/01/2023 - fexofenadine-pseudoeph edrine (CLARENCE D) 60-120 mg per tablet Take 1 tablet by mouth twice daily. - Desogestrel-Ethinyl Estradiol 0.15-0.03 mg per tablet Take 1 tablet by mouth once daily. Problem List As Of Date 09/01/2023 Noted Resolved Obesity, Class III, BMI >= 40 [E66.01] 12/05/2022 Chronic pain of both knees [M25.561, M25.562, G*08/14/2023 Disposition: Return if symptoms worsen or fail to improve. Follow-up and Disposition History for Encounter Date Provider Department Center 09/01/2023 [id number] NEUMANN [facility] Encounter Status:Closed by EMILY NEUMANN on 09/01/23 Normal [facility] CNTHERAPYon 09-01-2023 CNTHERAPY OT/PT/Speech Visit (PTWS) ARA GONZALEZ ([id number]) 1990 F Date Time Provider Department 09/01/23 2:00 PM KIMBERLY STACK Date Time Provider Department [place] 09/01/2023 2:00 PM [id number] STACK Reason for Visit: Physical Therapy [503] PT Discharge [752] Primary Visit Diagnosis:Chronic pain of both knees [M25.561, M25.562, G89.29] Allergies As of Date: 09/01/2023 (No Known Allergies) Date Reviewed: 09/01/2023 Reviewed by: Ashley Harris MA - Fully Assessed Prescriptions as of 02/12/2024 - cetirizine (ZYRTEC) 10 mg tablet Take 10 mg by mouth once daily. - fexofenadine-pseudoeph edrine (CLARENCE D) 60-120 mg per tablet Take 1 tablet by mouth twice daily. - Desogestrel-Ethinyl Estradiol 0.15-0.03 mg per tablet Take 1 tablet by mouth once daily. [facility] OT/PT/Speech Visit (PTWS) ARA GONZALEZ ([id number]) 1990 F Date Time Provider Department 08/29/23 11:45 AM KIMBERLY STACK Date Time Provider Department Center 08/29/2023 11:45 AM [id number] ESPINOSA Reason for Visit: Physical Therapy [503] Primary Visit Diagnosis:Chronic pain of both knees [M25.561, M25.562, G89.29] Allergies As of Date: 08/29/2023 (No Known Allergies) Date Reviewed: 08/08/2023 Reviewed by: Suzy Khanna LPN - Fully Assessed Prescriptions as of 08/29/2023 - fexofenadine-pseudoeph edrine (CLARENCE D) 60-120 mg per tablet Take 1 tablet by mouth twice daily. - Desogestrel-Ethinyl Estradiol 0.15-0.03 mg per tablet Take 1 tablet by mouth once daily. Normal [facility] CNTHERAPYon 08-25-2023 CNTHERAPY OT/PT/Speech Visit (PTWS) ARA GONZALEZ ([id number]) 1990 F Date Time Provider Department 08/25/23 1:15 PM KIMBERLY STACK Date Time Provider Department Center 08/25/2023 1:15 PM [id number] ESPINOSA Reason for Visit: Physical Therapy [503] Primary Visit Diagnosis:Chronic pain of both knees [M25.561, M25.562, G89.29] Allergies As of Date: 08/25/2023 (No Known Allergies) Date Reviewed: 08/08/2023 Reviewed by: Suzy Khanna LPN - Fully Assessed Prescriptions as of 08/25/2023 - fexofenadine-pseudoeph edrine (CLARENCE D) 60-120 mg per tablet Take 1 tablet by mouth twice daily. - Desogestrel-Ethinyl Estradiol 0.15-0.03 mg per tablet Take 1 tablet by mouth once daily. Food Storeroom Clerk: Addendum Therapy (PT/OT/Speech/Resp) ID: [id number] 08/25/2023 1:47 PM Author: KIMBERLY STACK Signed by KIMBERLY STACK LEATHER WORKER on 08/25/2023 at 1:47 PM * * * This document replaces document [id number] * * * Document text: Program_ID:[id number] Access Code: [email or web address] URL: [email or web address] [email or web address] [employer]/ Date: 08-25-2023 Prepared By: Shweta Keene Program Notes Exercises - Supine Quadricep Sets - 2 x daily - 7 x weekly - 2 sets - 10 reps - Straight Leg Raise with External Rotation - 2 x daily - 7 x weekly - 4 sets - 5 reps - Supine Hip Adduction Isometric with Ball - 2 x daily - 7 x weekly - 2 sets - 10 reps - Hooklying Transversus Abdominis Palpation - 2 x daily - 7 x weekly - 1 sets - 10 reps - Clamshell - 1 x daily - 7 x weekly - 2 sets - 10 reps - Sidelying Hip Abduction - 1 x daily - 7 x weekly - 2 sets - 10 reps - Prone Hip Extension - 1 x daily - 7 x weekly - 2 sets - 10 reps -- Normal [facility] THERAPY NTon 08-25-2023 THERAPY NT HNO ID: [id number] Author: KIMBERLY STACK PTA Service: ? Author Type: [employer] Revenue Officer Type: Therapy (PT/OT/Speech/Resp) Filed: 08/25/2023 13:47 Note Text: Program_ID:[id number] Access Code: [email or web address] URL: [email or web address] Date: 08-25-2023 Prepared By: Shweta Keene Program Notes Exercises - Supine Quadricep Sets - 2 x daily - 7 x weekly - 2 sets - 10 reps - Straight Leg Raise with External Rotation - 2 x daily - 7 x weekly - 4 sets - 5 reps - Supine Hip Adduction Isometric with Ball - 2 x daily - 7 x weekly - 2 sets - 10 reps - Hooklying Transversus Abdominis Palpation - 2 x daily - 7 x weekly - 1 sets - 10 reps - Clamshell - 1 x daily - 7 x weekly - 2 sets - 10 reps - Sidelying Hip Abduction - 1 x daily - 7 x weekly - 2 sets - 10 reps - Prone Hip Extension - 1 x daily - 7 x weekly - 2 sets - 10 reps Normal [facility] CNTHERAPYon 08-21-2023 CNTHERAPY OT/PT/Speech Visit (PTWS) ARA GONZALEZ ([id number]) 1990 F Date Time Provider Department 08/21/23 6:00 PM KIMBERLY STACK PTWS Date Time Provider Department Center 08/21/2023 6:00 PM [id number], MARIAH PTWS Margaret Malcolm Reason for Visit: Physical Therapy [503] Primary Visit Diagnosis:Chronic pain of both knees [M25.561, M25.562, G89.29] Allergies As of Date: 08/21/2023 (No Known Allergies) Date Reviewed: 08/08/2023 Reviewed by: Suzy Khanna LPN - Fully Assessed Prescriptions as of 08/21/2023 - fexofenadine-pseudoeph edrine (CLARENCE D) 60-120 mg per tablet Take 1 tablet by mouth twice daily. - Desogestrel-Ethinyl Estradiol 0.15-0.03 mg per tablet Take 1 tablet by mouth once daily. Food Storeroom Clerk: Therapy (PT/OT/Speech/Resp) ID: [id number] 08/21/2023 6:29 PM Author: KIMBERLY STACK Signed by KIMBERLY STACK LEATHER WORKER on 08/21/2023 at 6:29 PM Document text: Program_ID:[id number] Access Code: [email or web address] URL: [email or web address] Date: 08-21-2023 Prepared By: Shweta Keene Program Notes Exercises - Supine Quadricep Sets - 2 x daily - 7 x weekly - 2 sets - 10 reps - Straight Leg Raise with External Rotation - 2 x daily - 7 x weekly - 4 sets - 5 reps - Supine Hip Adduction Isometric with Ball - 2 x daily - 7 x weekly - 2 sets - 10 reps - Hooklying Transversus Abdominis Palpation - 2 x daily - 7 x weekly - 1 sets - 10 reps - Clamshell - 1 x daily - 7 x weekly - 2 sets - 10 reps - Sidelying Hip Abduction - 1 x daily - 7 x weekly - 2 sets - 10 reps -- Normal [facility] THERAPY NTon 08-21-2023 THERAPY NT HNO ID: [id number] Author: KIMBERLY STACK PTA Service: ? Author Type: U.S. Revenue Officer Type: Therapy (PT/OT/Speech/Resp) Filed: 08/21/2023 18:29 Note Text: Program_ID:[id number] Access Code: [email or web address] URL: [email or web address] Date: 08-21-2023 Prepared By: Shweta Keene Program Notes Exercises - Supine Quadricep Sets - 2 x daily - 7 x weekly - 2 sets - 10 reps - Straight Leg Raise with External Rotation - 2 x daily - 7 x weekly - 4 sets - 5 reps - Supine Hip Adduction Isometric with Ball - 2 x daily - 7 x weekly - 2 sets - 10 reps - Hooklying Transversus Abdominis Palpation - 2 x daily - 7 x weekly - 1 sets - 10 reps - Clamshell - 1 x daily - 7 x weekly - 2 sets - 10 reps - Sidelying Hip Abduction - 1 x daily - 7 x weekly - 2 sets - 10 reps Normal [facility] CNTHERAPYon 08-14-2023 CNTHERAPY OT/PT/Speech Visit (PTWS) ARA GONZALEZ ([id number]) 1990 F Date Time Provider Department 08/14/23 5:15 PM SHWETA KEENE PTWS Date Time Provider Department Center 08/14/2023 5:15 PM [id number] KEENE PTWS [facility] Reason for Visit: PT Darcyal [397] Primary Visit Diagnosis:Chronic pain of both knees [M25.561, M25.562, G89.29] Allergies As of Date: 08/14/2023 (No Known Allergies) Date Reviewed: 08/08/2023 Reviewed by: Suzy Khanna LPN - Fully Assessed Prescriptions as of 08/14/2023 - fexofenadine-pseudoeph edrine (CLARENCE D) 60-120 mg per tablet Take 1 tablet by mouth twice daily. - Desogestrel-Ethinyl Estradiol 0.15-0.03 mg per tablet Take 1 tablet by mouth once daily. Food Storeroom Clerk: Therapy (PT/OT/Speech/Resp) ID: [id number] 08/14/2023 6:19 PM Author: SHWETA KEENE Signed by SHWETA KEENE PT on 08/14/2023 at 6:19 PM Document text: Program_ID:[id number] Access Code: [email or web address] URL: [email or web address] Date: 08-14-2023 Prepared By: Shweta Keene Program Notes Exercises - Supine Quadricep Sets - 2 x daily - 7 x weekly - 2 sets - 10 reps - Straight Leg Raise with External Rotation - 2 x daily - 7 x weekly - 4 sets - 5 reps - Supine Hip Adduction Isometric with Ball - 2 x daily - 7 x weekly - 2 sets - 10 reps - Hooklying Transversus Abdominis Palpation - 2 x daily - 7 x weekly - 1 sets - 10 reps -- Normal [facility] THERAPY NTon 08-14-2023 THERAPY NT HNO ID: [id number] Author: SHWETA KEENE, BRYN Service: ? Author Type: Physical Therapist Type: Therapy (PT/OT/Speech/Resp) Filed: 08/14/2023 18:19 Note Text: Program_ID:[id number] Access Code: [email or web address] URL: [email or web address] Date: 08-14-2023 Prepared By: Shweta Keene Program Notes Exercises - Supine Quadricep Sets - 2 x daily - 7 x weekly - 2 sets - 10 reps - Straight Leg Raise with External Rotation - 2 x daily - 7 x weekly - 4 sets - 5 reps - Supine Hip Adduction Isometric with Ball - 2 x daily - 7 x weekly - 2 sets - 10 reps - Hooklying Transversus Abdominis Palpation - 2 x daily - 7 x weekly - 1 sets - 10 reps Normal [facility] XR Knee - bilateral 4 Viewso n 08-09-2023 IMPRESSION: Bilatera l patellar subluxation. Servomechanism Assembler: PSCB Transcribe Date/Time: Aug 09 2023 5:23P Dictated by : ANDREAS MELGAR MD This examination was interpreted and the report reviewed and electronically signed by: ANDREAS MELGAR MD on Aug 09 2023 5:24PM [facility] DIVISION OF RADIOLOGY * * *Final Report* * * DATE OF EXAM: Aug 08 2023 12:33PM WOX [id number] - XR KNEE 4V AP/PA/LAT/MERCH RICHARD / PROCEDURE REASON: multiple diagnoses * * * * Physician Interpretation * * * * EXAM TITLE: XR KNEE 4V AP/PA/LAT/MERCH RICHARD EXAM DATE/TIME: 08/08/2023 12:33 PM COMPARISON: None. CLINICAL INDICATION/HISTORY: Chronic knee pain. TECHNIQUE: AP/PA, lateral and sunrise views of both knees are presented. FINDINGS: No acute fracture seen. Bilateral patellar mild lateral subluxation noted on sunrise view. Tiny bone spur seen along the left patella. The joint spaces are well preserved. There is no evidence of joint effusion. The mineralization of the bones is normal. There is no significant soft tissue swelling. DIVISION OF RADIOLOGY Provider, Savannah Montgomery - 08/09/2023 * * *Final Report* * * DATE OF EXAM: Aug 08 2023 12:33PM WOX [id number] - XR KNEE 4V AP/PA/LAT/MERCH RICHARD / PROCEDURE REASON: multiple diagnoses * * * * Physician Interpretation * * * * EXAM TITLE: XR KNEE 4V AP/PA/LAT/MERCH RICHARD EXAM DATE/TIME: 08/08/2023 12:33 PM COMPARISON: None. CLINICAL INDICATION/HISTORY: Chronic knee pain. TECHNIQUE: AP/PA, lateral and sunrise views of both knees are presented. FINDINGS: No acute fracture seen. Bilateral patellar mild lateral subluxation noted on sunrise view. Tiny bone spur seen along the left patella. The joint spaces are well preserved. There is no evidence of joint effusion. The mineralization of the bones is normal. There is no significant soft tissue swelling. IMPRESSION IMPRESSION: Bilateral patellar subluxation. Servomechanism Assembler: PSCB Transcribe Date/Time: Aug 09 2023 5:23P Dictated by : ANDREAS MELGAR MD This examination was interpreted and the report reviewed and electronically signed by: ANDERAS MELGAR MD on Aug 09 2023 5:24PM EST [facility] XR Knee - bilateral 4 ViewsO rdered By: Cc Provider on 08-09-2023 [facility] CNOVon 08-08-2023 CNOV Office Visit (FAMWS ) ARA GONZALEZ ([id number]) 1990 F Date Time Provider Department 08/08/23 11:40 AM ALECIA LIZ During your visit today, we recorded the following information about you: Pulse Respiration Blood pressure Weight 83/minute 18/minute 118/80 118.5 kg Alecia Liz APRN.CNP 08/08/2023 12:44 PM Signed Knee xray08/08/2023 Patient presents with: Knee Pain: Mainly to right knee. Both knees have been popping and cracking SUBJECTIVE: This is a 33 year old that is here today for Above Complaints. ONSET: last fall LOCATION: bilateral knee- right worse than left across top of knee DURATION: intermittent CHARACTERISTICS: dull AGGRAVATING FEATURES: siting in car for long periods, going up and down stairs ALLEVIATING FEATURES: pushing down on knee RADIATION: as above TIMING: Denies past/present injury, redness, warmth or swelling Reports as a child right knee cap would float to side then pop back in. Wore a knee brace- was never seen by physician PAST MEDICAL HISTORY Diagnosis Date Cholelithiasis Known health problems: none ALLERGIES Patient has no known allergies. MEDICATIONS Current Outpatient Medications Medication Sig fexofenadine-pseudoeph edrine (CLARENCE D) 60-120 mg per tablet Take 1 tablet by mouth twice daily. Desogestrel-Ethinyl Estradiol 0.15-0.03 mg per tablet Take 1 tablet by mouth once daily. No current facility-administered medications for this visit. Medications and allergies reviewed by this provider. SOCIAL HISTORY Social History Tobacco Use Smoking status: Never Smokeless tobacco: Never Vaping Use Vaping Use: Former Substances: Nicotine, Flavoring Devices: Refillable tank Substance Use Topics Alcohol use: Yes Comment: rarely Drug use: Never REVIEW OF SYSTEMS All other reviewed and negative other than HPI. OBJECTIVE: BP 118/80 Pulse 83 Resp 18 Wt 118.5 kg (261 lb 3.2 oz) LMP 03/09/2022 (Exact Date) SpO2 98% BMI 46.27 kg/m? . Vital signs reviewed by this provider. APPEARANCE Well appearing, alert, in no acute distress, well-hydrated, well nourished. KNEES: No obvious deformity, erythema, swelling or excessive warmth. FROM without pain. Mild TTP right medial aspect. Negative anterior/posterior drawer test or [place] Hepatitis C Screening Never done HIV Screening Never done Hepatitis B Vaccine(1 of 3 - 19+ 3-dose series) Never done Pap Testing Never done DTaP,Tdap,Td Vaccine(1 - Tdap) due on 02/13/2019 HPV Testing Never done Influenza Vaccine(1) due on 01/27/2023 Covid-19 Vaccine( - 2023-24 season) due on 01/27/2023 Depression Assessment due on 05/29/2023 HPV Vaccine Aged Out ASSESSMENT/PLAN: 1. Chronic pain of both knees - ICD9: 719.46, 338.29, ICD10: M25.561, M25.562, G89.29 - no red flag symptoms or exam findings - red flag symptoms discussed, verbalizes understanding - recommend OTC oral ad topical pain relievers as directed on packaging. May use ice or heat for 15 minutes at a time - XR KNEE GENERAL 4V AP BOTH/PA BOTH/LAT/MERC BILATERAL - CONSULT TO PHYSICAL THERAPY Alecia Liz APRN.SECURITY AND COMPLIANCE ANALYST Prescription instructions reviewed with patient as applicable. Patient advised if symptoms do not improve or if symptoms worsen sooner, to contact their primary care physician. Potential red flag symptoms discussed with the patient. Reviewed appropriate action plan to take if red flag symptoms occur. Patient agreeable to treatment plan. Medical Decision Making: Problems: Moderate: New problem with uncertain prognosis Risk: Moderate: Moderate risk from testing/treatment Medical Decision Making Level: 4 - Moderate Allergies As of Date: 08/08/2023 (No Known Allergies) Date Reviewed: 08/08/2023 Reviewed by: Suzy Khanna LPN - Fully Assessed Reason for Visit: Knee Pain [132] Cmt: Mainly to right knee. Both knees have been popping and cracking Primary Visit Diagnosis:Chronic pain of both knees [M25.561, M25.562, G89.29] Order(s):XR KNEE GENERAL 4V AP BOTH/PA BOTH/LAT/MERC BILATERAL [[id number]] Order #: [id number] FUTURE CONSULT TO PHYSICAL THERAPY [9032] Order #: [id number]: 1 FUTURE Prescriptions as of 08/08/2023 - fexofenadine-pseudoeph edrine (CLARENCE D) 60-120 mg per tablet Take 1 tablet by mouth twice daily. - Desogestrel-Ethinyl Estradiol 0.15-0.03 mg per tablet Take 1 tablet by mouth once daily. Problem List As Of Date 08/08/2023 Noted Resolved Obesity, Class III, BMI >= 40 [E66.01] 12/05/2022 Encounter Status:Closed by ALECIA LIZ on 3/12/24 Normal [facility] XR KNEE 4V AP/PA/LAT/MERCH B ILon 08-08-2023 XR KNEE 4V AP/PA/LAT/MERCH RICHARD * * *Final Report* * * DATE OF EXAM: Aug 08 2023 12:33PM WOX [id number] - XR KNEE 4V AP/PA/LAT/MERCH RICHARD / PROCEDURE REASON: multiple diagnoses * * * * Physician Interpretation * * * * EXAM TITLE: XR KNEE 4V AP/PA/LAT/MERCH RICHARD EXAM DATE/TIME: 08/08/2023 12:33 PM COMPARISON: None. CLINICAL INDICATION/HISTORY: Chronic knee pain. TECHNIQUE: AP/PA, lateral and sunrise views of both knees are presented. FINDINGS: No acute fracture seen. Bilateral patellar mild lateral subluxation noted on sunrise view. Tiny bone spur seen along the left patella. The joint spaces are well preserved. There is no evidence of joint effusion. The mineralization of the bones is normal. There is no significant soft tissue swelling. IMPRESSION: Bilateral patellar subluxation. Servomechanism Assembler: PSCB Transcribe Date/Time: Aug 09 2023 5:23P Dictated by : ANDREAS MELGAR MD This examination was interpreted and the report reviewed and electronically signed by: ANDREAS MELGAR MD on Aug 09 2023 5:24PM EST [id number] Normal [facility] XR Knee - bilateral 4 Viewso n 08-08-2023 Radiology Study observation (narrative) [facility] Bacteria Ur Culton Bacteria identified Cx Nom (U) ORGANISM ID: 1 10,000 -<50,000 CFU/ml Normal urogenital elver Normal [facility] Comment on above: Performed By: #### 6 30-4 ####[facility] LABCLIA [id number] [address] OF [facility] CNOVon 07-23-2023 CNOV Office Visit (UCWSTR ) ARA GONZALEZ ([id number]) 1990 F Date Time Provider Department 07/23/23 10:15 AM TI GAMBLE During your visit today, we recorded the following information about you: Temperature Pulse Respiration Blood pressure 98.5 degrees 96/minute 16/minute 124/72 Weight 120.7 kg Ti Gamble APRN.[facility] 07/23/2023 10:40 AM Signed CC: Patient presents with: Urinary Problem: burning with urination x 1 day HPI Ara Gonzalez is a 32 year old female who presents with complaint of possible UTI. These symptoms have been present for 1 days. Associated symptoms: burning Denies: fever, chills, sweats, abdominal pain, and flank pain Treatments: nothing The ROS was otherwise negative. PMH, Medications, labs, allergies, and recent past visits with PCP were reviewed and updated as able. PHYSICAL EXAM: BP 124/72 Pulse 96 Temp 36.9 ?C (98.5 ?F) Resp 16 Wt 120.7 kg (266 lb) LMP 03/09/2022 (Exact Date) SpO2 97% BMI 47.12 kg/m? General: Well appearing and alert CV: Regular rate and rhythm without obvious murmur Lungs: clear to auscultation bilaterally Back: straight and symmetric Abdomen: soft, nontender, nondistended PAST MEDICAL HISTORY Diagnosis Date Cholelithiasis Known health problems: none PAST SURGICAL HISTORY Procedure Laterality Date LAPAROSCOPIC CHOLECYSTECTOMY 04/05/2022 TONSILLECTOMY HX ALLERGIES Patient has no known allergies. MEDICATIONS fexofenadine-pseudoeph edrine (CLARENCE D) 60-120 mg per tablet Take 1 tablet by mouth twice daily. Desogestrel-Ethinyl Estradiol 0.15-0.03 mg per tablet Take 1 tablet by mouth once daily. FAMILY HISTORY Problem Relation Age of Onset Diabetes Mother Hypertension Father other (heart conditions) Father No Known Problems Brother Diabetes Maternal Grandmother No Known Problems Maternal Grandfather No Known Problems Paternal Grandmother Heart Attack Paternal Grandfather Colon Cancer No Family History Social History Tobacco Use Smoking status: Never Smokeless tobacco: Never Vaping Use Vaping Use: Former Substances: Nicotine, Flavoring Devices: epacube tank Substance Use Topics Alcohol use: Yes Comment: rarely Drug use: Never ASSESSMENT/PLAN: 1. Burning with urination - ICD9: 788.1, ICD10: R30.0 (primary diagnosis) - UA DIP, URINE (POC) - URINE CULTURE 2. Recurrent UTI (urinary tract infection) - ICD9: 599.0, ICD10: N39.0 - NITROFURANTOIN MONOHYDRATE AND MACROCRYSTAL 100 MG ORAL CAP Culture requires antibiotic be changed please change at that time. Prescription instructions reviewed with patient as applicable. Potential red flag symptoms discussed with the patient. Reviewed appropriate action plan to take if red flag symptoms occur. Patient agreeable to treatment plan. Ti Gamble APRN.SECURITY AND COMPLIANCE ANALYST Allergies As of Date: 07/23/2023 (No Known Allergies) Date Reviewed: 07/23/2023 Reviewed by: Shweta Hernandez - Fully Assessed Reason for Visit: Urinary Problem [252] Cmt: burning with urination x 1 day Primary Visit Diagnosis:Burning with urination [R30.0] Other Visit Diagnosis:Recurrent UTI (urinary tract infection) [N39.0] Order(s):UA DIP, URINE (POC) [5894293] Order #: [id number] #:[id number] URINE CULTURE [[facility]] Order #: [id number]. #:[id number] nitrofurantoin monohydrate and macrocrystal (MACROBID) 100 mg capsuleTake 1 capsule by mouth two times a day for 5 days.Disp: 10 capsuleRfl: 0 Prescriptions as of 07/23/2023 - nitrofurantoin monohydrate and macrocrystal (MACROBID) 100 mg capsule Take 1 capsule by mouth two times a day for 5 days. - fexofenadine-pseudoeph edrine (CLARENCE D) 60-120 mg per tablet Take 1 tablet by mouth twice daily. - Desogestrel-Ethinyl Estradiol 0.15-0.03 mg per tablet Take 1 tablet by mouth once daily. Problem List As Of Date 07/23/2023 Noted Resolved Obesity, Class III, BMI >= 40 [E66.01] 12/05/2022 Prescriptions ordered this encounter Disp Refills Start End NITROFURANTOIN MONOHYDRATE AND MACROCR* 10 c* 0 07/23/2023 07/28/2023 Route: ORAL Sig: Take 1 capsule by mouth two times a day for 5 days. Encounter Status:Closed by TI GAMBLE on 07/23/23 Normal [facility] UA DIP, URINE (POC)on 2023 BILIRUBIN UA (POCT) Negative Negative [facility] CLARITY UA (POCT) Clear [facility] COLOR UA (POCT) Yellow [facility] GLUCOSE UA (POCT) Negative Negative mg/dL [facility] Hemoglobin Ql (U) Moderate Abnormal Negative [facility] KETONE UA (POCT) Negative Negative mg/dL [facility] LEUKOCYTES UA (POCT) Trace Abnormal Negative [facility] NITRITE UA (POCT) Negative Negative [facility] PH UA (POCT) 6.0 4.5 - 8.0 [facility] Protein Ql (U) Negative Negative mg/dL [facility] SPECIFIC GRAVITY UA (POCT) 1.010 1.005 - 1.030 [facility] UROBILINOGEN UA (POCT) 0.2 E.U./dL Normal E.U./dL [facility] Bacteria Ur Culton 3 Bacteria identified Cx Nom (U) ORGANISM ID: 1 >=100,000 CFU/ml Escherichia coli ORGANISM ID: 1 (ESCHERICHIA COLI) -- ANTIBIOTIC INTERPRETATION ELLIE STATUS REFERENCE RANGE -- Ampicillin R >=32 F Susceptible <=8 , Intermediate >8 , Resistant >16 Cefazolin S <=4 F Susceptible 0-16 , Intermediate <0 or >16 , Resistant >16 Ceftriaxone S <=1 F Susceptible <=1 , Intermediate >1 , Resistant >=4 Cefepime S <=1 F Susceptible <=2 , Susceptible-Dose Dependent >2 , Resistant >=16 Ertapenem S <=0.5 F Susceptible <=0.5 , Intermediate >.5 , Resistant >1 Meropenem S <=0.25 F Susceptible <=1 , Intermediate >1 , Resistant >2 Ampicillin/Sulbact I 16 F Susceptible <=8 , Intermediate >8 , Resistant >16 Piperacillin/Tazobac S <=4 F Susceptible <=16 , Intermediate >16 , Resistant >64 Gentamicin S <=1 F Susceptible <=4 , Intermediate >4 , Resistant >8 Tobramycin S <=1 F Susceptible <=4 , Intermediate >4 , Resistant >8 Trimeth sulfameth S <=20 F Susceptible <=40 , Resistant >40 Ciprofloxacin S <=0.25 F Susceptible <0.5 , Intermediate >=.5 , Resistant >=1 Nitrofurantoin S <=16 F Susceptible <=32 , Intermediate >32 , Resistant >64 Abnormal [facility] Comment on above: Performed By: #### 6 30-4 ####[facility] [id number] [address] [place] CNOVon 04-06-2023 CNOV Office Visit (UCWSTR ) ARA GONZALEZ ([id number]) 1990 F Date Time Provider Department 04/06/23 9:30 AM FALLON PRAKASH [facility] During your visit today, we recorded the following information about you: Temperature Pulse Respiration Blood pressure 98.2 degrees 89/minute 16/minute 118/72 Weight 120 kg Fallon Prakash PA-C 04/06/2023 10:02 AM Signed This note was created using 3Funnel. Subjective Ara Gonzalez is a 32 year old female. HPI Patient presents with urinary frequency, dysuria over the past 2 days. No blood in urine. No abdominal pain or back pain. No fever. She is sexually active. Denies chance of . Last menstrual cycle was a week ago and normal for her. No diarrhea or vomiting. No vaginal itching or discharge. Review of Systems Constitutional: Negative. HENT: Negative. Respiratory: Negative. Cardiovascular: Negative. Gastrointestinal: Negative. Genitourinary: Positive for dysuria and frequency. Negative for hematuria, pelvic pain, vaginal bleeding, vaginal discharge and vaginal pain. Musculoskeletal: Negative for back pain. All other systems reviewed and are negative. PAST MEDICAL HISTORY Diagnosis Date Cholelithiasis Known health problems: none Current Outpatient Medications Medication Sig Dispense Refill fexofenadine-pseudoeph edrine (CLARENCE D) 60-120 mg per tablet Take 1 tablet by mouth twice daily. Desogestrel-Ethinyl Estradiol 0.15-0.03 mg per tablet Take 1 tablet by mouth once daily. nitrofurantoin monohydrate and macrocrystal (MACROBID) 100 mg capsule Take 1 capsule by mouth two times a day with meals for 5 days. 10 capsule 0 No current facility-administered medications for this visit. PAST SURGICAL HISTORY Procedure Laterality Date LAPAROSCOPIC CHOLECYSTECTOMY 04/05/2022 TONSILLECTOMY HX FAMILY HISTORY Problem Relation Age of Onset Diabetes Mother Hypertension Father other (heart conditions) Father No Known Problems Brother Diabetes Maternal Grandmother No Known Problems Maternal Grandfather No Known Problems Paternal Grandmother Heart Attack Paternal Grandfather Colon Cancer No Family History Social History Tobacco Use Smoking status: Never Smokeless tobacco: Never Vaping Use Vaping Use: Former Substances: Nicotine, Flavoring Devices: RefDreamitizeble tank Substance Use Topics Alcohol use: Yes Comment: rarely Drug use: Never Objective BP 118/72 Pulse 89 Temp 36.8 ?C (98.2 ?F) Resp 16 Wt 120 kg (264 lb 9.6 oz) LMP 03/09/2022 (Exact Date) SpO2 98% BMI 46.87 kg/m? Physical Exam Vitals reviewed. Constitutional: Appearance: Normal appearance. HENT: Head: Normocephalic and atraumatic. Cardiovascular: Rate and Rhythm: Normal rate and regular rhythm. Heart sounds: Normal heart sounds. Pulmonary: Effort: Pulmonary effort is normal. Breath sounds: Normal breath sounds. Abdominal: General: Abdomen is flat. There is no distension. Palpations: Abdomen is soft. Tenderness: There is no abdominal tenderness. There is no right CVA tenderness, left CVA tenderness or guarding. Musculoskeletal: Cervical back: Neck supple. Skin: General: Skin is warm and dry. Findings: No rash. Neurological: Mental Status: She is alert. Assessment and Plan ASSESSMENT/PLAN: 1. Acute UTI - ICD9: 599.0, ICD10: N39.0 acute - UA positive for jacquie esterase, hematuria, and proteinuria - Send urine for culture - Begin treatment with Macrobid 100 mg BID for 5 days - UA DIP, URINE (POC) - URINE CULTURE Fallon Prakash PA-C Referring Provider: SELF [200] Allergies As of Date: 04/06/2023 (No Known Allergies) Date Reviewed: 04/06/2023 Reviewed by: Mar Briscoe - Fully Assessed Reason for Visit: Urinary Problem [252] Primary Visit Diagnosis:Acute UTI [N39.0] Order(s):UA DIP, URINE (POC) [[id number]] Order #: [id number]. #:[id number] URINE CULTURE [[facility]] Order #: [id number]. #:[id number] nitrofurantoin monohydrate and macrocrystal (MACROBID) 100 mg capsuleTake 1 capsule by mouth two times a day with meals for 5 days.Disp: 10 capsuleRfl: 0 Prescriptions as of 04/06/2023 - nitrofurantoin monohydrate and macrocrystal (MACROBID) 100 mg capsule Take 1 capsule by mouth two times a day with meals for 5 days. - fexofenadine-pseudoeph edrine (CLARENCE D) 60-120 mg per tablet Take 1 tablet by mouth twice daily. - Desogestrel-Ethinyl Estradiol 0.15-0.03 mg per tablet Take 1 tablet by mouth once daily. Problem List As Of Date 04/06/2023 Noted Resolved Obesity, Class III, BMI >= 40 [E66.01] 12/05/2022 Prescriptions ordered this encounter Disp Refills Start End NITROFURANTOIN MONOHYDRATE AND MACROCR* 10 c* 0 04/06/2023 04/11/2023 Route: ORAL Sig: Take 1 capsule by mouth two times a day with meals for 5 days. Letter Text Encounter Status:Cl (more content not included)... Normal [facility] UA DIP, URINE (POC)on 2022 BILIRUBIN UA (POCT) Negative Negative [facility] CLARITY UA (POCT) Cloudy [facility] COLOR UA (POCT) [place] [facility] GLUCOSE UA (POCT) Negative Negative mg/dL [facility] Hemoglobin Ql (U) Small Abnormal Negative [facility] KETONE UA (POCT) Negative Negative mg/dL [facility] LEUKOCYTES UA (POCT) Small Abnormal Negative [facility] NITRITE UA (POCT) Negative Negative [facility] PH UA (POCT) 6.5 4.5 - 8.0 [facility] Protein Ql (U) Trace Abnormal Negative mg/dL [facility] SPECIFIC GRAVITY UA (POCT) 1.020 1.005 - 1.030 [facility] UROBILINOGEN UA (POCT) 0.2 E.U./dL Normal E.U./dL [facility] NM HEPATOBILIARY W EF AND/OR RXon 03-04-2022 [facility] MRI LIVER WO/W IVCONon 02-17 [facility] No Panel Informationon 01-27 Radiology Result ACTIONABLE Abnormal [facility] 48 HR HOLTER MONITORon 01-10 48 HR HOLTER MONITOR IMPRESSIONS AND FINDINGS: Scanned 16-Jan-2019 The basic underlying rhythm is sinus with sinus arrhythmia at an average rate of 91 BPM, a minimum rate of 55 BPM and a maximum rate of 164 BPM. Tachycardia was seen in 27% of the scan. There were nine isolated premature atrial complexes. There were six isolated premature ventricular complexes. Diary entries of 'heart rate increase', 'when walking heart rate increase' and 'heart flutter' all correlated with sinus tachy cardia with rates ranging from 108 BPM to 128 BPM. Diary entry of 'lightheaded, chest felt funny' correlated with sinus rhythm at a rate of 88 BPM. Hookup Date: [id number] Hookup Time: Recording Duration: [id number] S Minimum Heart Rate: 55 BPM Minimum Heart Rate Date/Time: [id number] Maximum Heart Rate: 164 BPM Maximum Heart Rate Date/Time: [id number] Average Heart Rate: 91 BPM Longest RR: 1.496 S Longest RR DATE/TIME: [id number] QRS complexes: [id number] Ventricular Ectopics: 6 Ventricular Isolated Beats: 6 Ventricular Bigeminal Cycles: 0 Ventricular Couplets: 0 Ventricular Runs: 0 Ventricular Beats in Runs: 0 Supraventricular Ectopics: 9 Supraventricular Isolated Beats: 9 Supraventricular Couplets: 0 Supraventricular Runs: 0 Supraventricular Beats in Runs: 0 Overreading Physician: ILANA CONDE M.D. See Holter MUSE for ECG strips. [facility] Vital Signs Date Time Vital Sign Value Performing Clinician Varun barros 01-05-2024 14:14-0400 Body mass index (BMI) [Ratio] 46.59 kg/m2 Emily Neumann APRN.SECURITY AND COMPLIANCE ANALYST Work Phone: [facility] 01-05-2024 14:14-0400 Body weight 119.3 kg Emily Neumann FLOUR WORKER.SECURITY AND COMPLIANCE ANALYST Work Phone: [facility] 01-05-2024 14:14-0400 Diastolic blood pressure 80 mm[Hg] Emily Neumann FLOUR WORKER.SECURITY AND COMPLIANCE ANALYST Work Phone: [facility] 01-05-2024 14:14-0400 Heart rate 77 /min Emily Neumann FLOUR WORKER.SECURITY AND COMPLIANCE ANALYST Work Phone: [facility] 01-05-2024 14:14-0400 Respiratory rate 14 /min Emily Neumann FLOUR WORKER.SECURITY AND COMPLIANCE ANALYST Work Phone: [facility] 01-05-2024 14:14-0400 Systolic blood pressure 112 mm[Hg] Emily Neumann FLOUR WORKER.SECURITY AND COMPLIANCE ANALYST Work Phone: [facility] 08-08-2023 11:22-0400 Body weight 118.48 kg Alecia Liz FLOUR WORKER.SECURITY AND COMPLIANCE ANALYST Work Phone: [facility] 08-08-2023 11:22-0400 Diastolic blood pressure 80 mm[Hg] Alecia Liz FLOUR WORKER.SECURITY AND COMPLIANCE ANALYST Work Phone: [facility] 08-08-2023 11:22-0400 Heart rate 83 /min Alecia Podlogar FLOUR WORKER.SECURITY AND COMPLIANCE ANALYST Work Phone: [facility] 08-08-2023 11:22-0400 Respiratory rate 18 /min Alecia Podlogar FLOUR WORKER.SECURITY AND COMPLIANCE ANALYST Work Phone: [facility] 08-08-2023 11:22-0400 SaO2% (BldA) [Mass fraction] 98 % Alecia Podlogar FLOUR WORKER.SECURITY AND COMPLIANCE ANALYST Work Phone: [facility] 08-08-2023 11:22-0400 Systolic blood pressure 118 mm[Hg] Alecia Podlogar FLOUR WORKER.SECURITY AND COMPLIANCE ANALYST Work Phone: [facility] 07-23-2023 10:22-0500 Body temperature 98.49 [degF] Ti Gamble FLOUR WORKER.SECURITY AND COMPLIANCE ANALYST Work Phone: [facility] 07-23-2023 10:22-0500 Body weight 120.66 kg Ti Gamble FLOUR WORKER.SECURITY AND COMPLIANCE ANALYST Work Phone: [facility] 07-23-2023 10:22-0500 Diastolic blood pressure 72 mm[Hg] Ti Gamble FLOUR WORKER.SECURITY AND COMPLIANCE ANALYST Work Phone: [facility] 07-23-2023 10:22-0500 Heart rate 96 /min Ti Gamble APRN.SECURITY AND COMPLIANCE ANALYST Work Phone: [facility] 07-23-2023 10:22-0500 Respiratory rate 16 /min Ti Gamble APRN.SECURITY AND COMPLIANCE ANALYST Work Phone: [facility] 07-23-2023 10:22-0500 SaO2% (BldA) [Mass fraction] 97 % Ti Gamble APRN.SECURITY AND COMPLIANCE ANALYST Work Phone: [facility] 07-23-2023 10:22-0500 Systolic blood pressure 124 mm[Hg] Ti Gamble FLOUR WORKER.SECURITY AND COMPLIANCE ANALYST Work Phone: [facility] 04-06-2023 09:25-0500 Body temperature 98.2 [degF] Fallon Athy PA-C Work Phone: [facility] 04-06-2023 09:25-0500 Body weight 120.02 kg Fallon Athy PA-C Work Phone: [facility] 04-06-2023 09:25-0500 Diastolic blood pressure 72 mm[Hg] Fallon Athy PA-C Work Phone: [facility] 04-06-2023 09:25-0500 Heart rate 89 /min Fallon Athy PA-C Work Phone: [facility] 04-06-2023 09:25-0500 Respiratory rate 16 /min Fallon Athy PA-C Work Phone: [facility] 04-06-2023 09:25-0500 SaO2% (BldA) [Mass fraction] 98 % Fallon Athy PA-C Work Phone: [facility] 04-06-2023 09:25-0500 Systolic blood pressure 118 mm[Hg] Fallon Athy PA-C Work Phone: [facility] 12-05-2022 10:53-0400 Body weight 117.21 kg Alecia Podlogar FLOUR WORKER.SECURITY AND COMPLIANCE ANALYST Work Phone: [facility] 12-05-2022 10:53-0400 Diastolic blood pressure 76 mm[Hg] Alecia Podlogar FLOUR WORKER.SECURITY AND COMPLIANCE ANALYST Work Phone: [facility] 12-05-2022 10:53-0400 Heart rate 95 /min Alecia Podlogar FLOUR WORKER.SECURITY AND COMPLIANCE ANALYST Work Phone: [facility] 12-05-2022 10:53-0400 Respiratory rate 18 /min Alecia Podlogar FLOUR WORKER.SECURITY AND COMPLIANCE ANALYST Work Phone: [facility] 12-05-2022 10:53-0400 SaO2% (BldA) [Mass fraction] 94 % Alecia Podlogar FLOUR WORKER.SECURITY AND COMPLIANCE ANALYST Work Phone: [facility] 12-05-2022 10:53-0400 Systolic blood pressure 128 mm[Hg] Alecia Podlogar FLOUR WORKER.SECURITY AND COMPLIANCE ANALYST Work Phone: [facility] 04-11-2022 09:45-0500 Body temperature 97.5 [degF] Lulu Gee MD Work Phone: [facility] 04-11-2022 09:45-0500 Body weight 115.3 kg Lulu Gee MD Work Phone: [facility] 04-11-2022 09:45-0500 Diastolic blood pressure 64 mm[Hg] Lulu Gee MD Work Phone: [facility] 04-11-2022 09:45-0500 Heart rate 111 /min Lulu Gee MD Work Phone: [facility] 04-11-2022 09:45-0500 SaO2% (BldA) [Mass fraction] 100 % Lulu Gee MD Work Phone: [facility] 04-11-2022 09:45-0500 Systolic blood pressure 120 mm[Hg] Lulu Gee MD Work Phone: [facility] 03-14-2022 09:08-0400 Body height 160 cm Lulu Gee MD Work Phone: [facility] 03-14-2022 09:08-0400 Body temperature 97.7 [degF] Lulu Gee MD Work Phone: [facility] 03-14-2022 09:08-0400 Body weight 115.67 kg Lulu Gee MD Work Phone: [facility] 03-14-2022 09:08-0400 Diastolic blood pressure 86 mm[Hg] Lulu Gee MD Work Phone: [facility] 03-14-2022 09:08-0400 Heart rate 98 /min Lulu Gee MD Work Phone: [facility] 03-14-2022 09:08-0400 Respiratory rate 14 /min Lulu Gee MD Work Phone: [facility] 03-14-2022 09:08-0400 SaO2% (BldA) [Mass fraction] 97 % Lulu Gee MD Work Phone: [facility] 03-14-2022 09:08-0400 Systolic blood pressure 130 mm[Hg] Lulu Gee MD Work Phone: [facility] Encounters Encounter Date Encounter Type Care Provider Facility Start: 01-05-2024 End: 01-05-2024 Patient encounter procedure Emily Neumann FLOUR WORKER.SECURITY AND COMPLIANCE ANALYST Work Phone: [facility] Comment on above: Irritable bowel synd arsen with constipation and diarrhea (Primary Dx); Internal hemorrhoids; Attention deficit hyperactivity disorder (ADHD) evaluation Start: 01-05-2024 End: 01-05-2024 ambulatory EMILY NUEMANN Facility:[facility] Start: 10-02-2023 End: 10-02-2023 ambulatory UCHE ALBERTO Facility:[facility] Start: 10-02-2023 End: 10-02-2023 Patient encounter procedure Uche Alberto MD Work Phone: Orthopaedics Comment on above: Subluxation of hooks lofemoral joint, unspecified laterality, initial encounter Start: 09-25-2023 Telephone encounter Emily ha APRN.SECURITY AND COMPLIANCE ANALYST Work Phone: [facility] Comment on above: Results Start: 09-22-2023 Telephone encounter Emily ha APRN.SECURITY AND COMPLIANCE ANALYST Work Phone: [facility] Start: 09-22-2023 End: 09-22-2023 ambulatory EMILY NEUMANN Facility:[facility] Start: 09-01-2023 End: 09-01-2023 ambulatory Kimberly Kashuba LEATHER WORKER Work Phone: [facility] Comment on above: Chronic pain of both knees (Primary Dx) Start: 08-29-2023 End: 08-29-2023 ambulatory Kimberly Kashuba LEATHER WORKER Work Phone: [facility] Comment on above: Chronic pain of both knees (Primary Dx) Start: 08-25-2023 End: 08-25-2023 ambulatory KIM CELESTIN Facility:[facility] Start: 08-21-2023 End: 08-21-2023 ambulatory Kimberly Kashuba LEATHER WORKER Work Phone: [facility] Comment on above: Chronic pain of both knees (Primary Dx) Start: 08-14-2023 End: 08-14-2023 ambulatory Shweta Robles [facility] Comment on above: Chronic pain of both knees (Primary Dx) Start: 08-08-2023 End: 08-08-2023 ambulatory KIM CELESTIN Facility:[facility] Start: 08-08-2023 End: 08-08-2023 Subsequent hospital visit by physician Pia [facility] Work Phone: Radiology Comment on above: Chronic pain of both knees [M25.561, M25.562, G89.29] Start: 08-08-2023 End: 08-08-2023 Patient encounter procedure Alecia Liz APRN.CNP Work Phone: [facility] Comment on above: Chronic pain of both knees (Primary Dx) Start: 08-08-2023 End: 08-08-2023 ambulatory ALECIA PÉREZLOGMEKA Facility:[facility] Start: 07-23-2023 End: 07-23-2023 ambulatory KIM CELESTIN Facility:[facility] Start: 07-23-2023 End: 07-23-2023 Patient encounter procedure Ti Gamble APRN.CNP Work Phone: [facility] Comment on above: Burning with urinati on (Primary Dx); Recurrent UTI (urinary tract infection) Start: 04-06-2023 End: 04-06-2023 ambulatory KIM CELESTIN Facility:[facility] Start: 04-06-2023 End: 04-06-2023 Patient encounter procedure Fallon Prakash PA-C Work Phone: [facility] Comment on above: Acute UTI (Primary D x) Start: 12-05-2022 End: 12-05-2022 Patient encounter procedure Alecia Liz APRN.CNP Work Phone: [facility] Comment on above: Annual physical exam (Primary Dx); Obesity, Class III, BMI >= 40; Swelling of left foot Start: 04-12-2022 Telephone encounter Lulu De MD Work Phone: General Surgery Comment on above: Patient Question Start: 04-11-2022 End: 04-11-2022 Patient encounter procedure Lulu Gee MD Work Phone: General Surgery Comment on above: Status post laparosc opic cholecystectomy (Primary Dx) Start: 03-14-2022 End: 03-14-2022 Patient encounter procedure Lulu Gee MD Work Phone: General Surgery Comment on above: RUQ abdominal pain ( Primary Dx); Calculus of gallbladder without cholecystitis without obstruction; Morbid obesity (HCC) Start: 03-07-2022 Telephone encounter Anjaan Saavedra APRN.SECURITY AND COMPLIANCE ANALYST Work Phone: [facility] Comment on above: Orders Start: 03-04-2022 End: 03-04-2022 Subsequent hospital visit by physician [facility] Work Phone: Nuclear Medicine Comment on above: Calculus of gallblad fawad without cholecystitis without obstruction [K80.20] Start: 02-17-2022 End: 02-17-2022 Subsequent hospital visit by physician [employer] [facility] (I-Stat/1.5t) Work Phone: Radiology Comment on above: Liver lesion [K76.9] Start: 02-01-2022 Telephone encounter Anjana Saavedra APRN.SECURITY AND COMPLIANCE ANALYST Work Phone: [facility] Comment on above: Abdominal Pain Start: 01-28-2022 Telephone encounter Anjana Saavedra APRN.SECURITY AND COMPLIANCE ANALYST Work Phone: [facility] Comment on above: Results Start: 01-27-2022 End: 01-27-2022 Subsequent hospital visit by physician [facility] [employer] [facility] Work Phone: Radiology Comment on above: RUQ pain [R10.11] Start: 12-02-2021 Refill Anjana Saavedra APR N.SECURITY AND COMPLIANCE ANALYST Work Phone: Gastroenterology Comment on above: Refill Request Start: 11-09-2021 Telephone encounter Anjana Saavedra APRN.SECURITY AND COMPLIANCE ANALYST Work Phone: Gastroenterology Comment on above: Medication Question Procedures Date Procedure Procedure Detail Performing Clinician Start: 08-08-2023 Radiologic exam knee complete 4/more views Alecia Liz FLOUR WORKER.SECURITY AND COMPLIANCE ANALYST Work Phone: Start: 07-23-2023 Urnls dip stick/tablet rgnt auto w/o microscopy Jenniffer Tsai FLOUR WORKER.SECURITY AND COMPLIANCE ANALYST Work Phone: Start: 04-06-2023 Urnls dip stick/tablet rgnt auto w/o microscopy Florin Turk FLOUR WORKER.SECURITY AND COMPLIANCE ANALYST Work Phone: Start: 03-04-2022 Hepatobil syst imag inc gb w/pharma intervenj Anjana Saavedra FLOUR WORKER.SECURITY AND COMPLIANCE ANALYST Work Phone: Start: 02-17-2022 Mri abdomen w/o & w/contrast material Anjana Saavedra FLOUR WORKER.SECURITY AND COMPLIANCE ANALYST Work Phone: Start: 01-27-2022 Us abdominal real time w/image limited Anjana Saavedra FLOUR WORKER.SECURITY AND COMPLIANCE ANALYST Work Phone: Start: 05-14-2021 Adult depression screening assessment Anjana Saavedra FLOUR WORKER.SECURITY AND COMPLIANCE ANALYST Work Phone: History of cholecystectomy Status post laparoscopic cholecystectomy Lulu Gee MD Work Phone: Plan of Treatment Date Care Activity Detail Author Start: 08-06-2033 Urine microalbumin profile DTaP,Tdap,Td Vaccine (2 - Td or Tdap) [facility] Start: 04-02-2024 End: 04-02-2024 Patient encounter procedure 04/02/2024 4:00 PM EST Office Visit Psychiatry [address] [place] [address] Linda Brown, FLOUR WORKER.[facility] [address] [place] [address] NEW Consult Attention deficit hyperactivity disorder (ADHD) evaluation [Z13.39] Psychiatry Comment on above: NEW Consult Attentio n deficit hyperactivity disorder (ADHD) evaluation [Z13.39] Start: 01-28-2024 Covid-19 Vaccine ( season) Covid-19 Vaccine ( season) [facility] Start: 01-28-2024 Influenza vaccination [facility] Start: 10-02-2023 End: 10-02-2023 Patient encounter procedure 10/02/2023 1:15 PM EDT Office Visit Orthopaedics [address] [place] [address] Uche Alberto MD [address] [place] [address] Subluxation of patellofemoral joint, unspecified laterality, initial encounter [S83.003A] Orthopaedics Comment on above: Subluxation of hooks lofemoral joint, unspecified laterality, initial encounter [S83.003A] Start: 05-29-2023 Behavioral Health Screening Behavioral Health Screening [facility] Start: 05-29-2023 Depression Assessment Depression Ass essment [facility] Start: 01-27-2023 Covid-19 Vaccine ( season) Covid-19 Vaccine () [facility] Start: 01-27-2023 Influenza vaccination [facility] Start: 12-05-2022 End: 02-04-2023 CBC panel - Blood by Automated count CBC Lab Routine Annual physical exam Obesity, Class III, BMI >= 40 Expected: 12/05/2022, Expires: 02/04/2023 [facility] Work Phone: Comment on above: Expected: 12/05/2022 , Expires: 02/04/2023 Start: 12-05-2022 End: 02-04-2023 Comprehensive metabolic 2000 panel - Serum or Plasma COMP METABOLIC PANEL Lab Routine Annual physical exam Obesity, Class III, BMI >= 40 Expected: 12/05/2022, Expires: 02/04/2023 [facility] Work Phone: Comment on above: Expected: 12/05/2022 , Expires: 02/04/2023 Start: 12-05-2022 End: 02-04-2023 Hemoglobin A1c in Blood HGB A1C Lab Routine Annual physical exam Obesity, Class III, BMI >= 40 Expected: 12/05/2022, Expires: 02/04/2023 [facility] Work Phone: Comment on above: Expected: 12/05/2022 , Expires: 02/04/2023 Start: 12-05-2022 End: 02-04-2023 Lipid 1996 panel - Serum or Plasma LIPID PANEL BASIC Lab Routine Annual physical exam Obesity, Class III, BMI >= 40 Expected: 12/05/2022, Expires: 02/04/2023 [facility] Work Phone: Comment on above: Expected: 12/05/2022 , Expires: 02/04/2023 Start: 12-05-2022 End: 02-04-2023 Thyrotropin [Units/volume] in Serum or Plasma TSH BLD Lab Routine Obesity, Class III, BMI >= 40 Expected: 12/05/2022, Expires: 02/04/2023 [facility] Work Phone: Comment on above: Expected: 12/05/2022 , Expires: 02/04/2023 Start: 05-14-2022 Adult depression screening assessment DEPRESSION SCREENING [facility] Start: 02-03-2022 COVID-19 VACCINE (5 - Booster for Moderna series) COVID-19 VACCINE (5 - Booster for Moderna series) [facility] Start: 01-27-2022 Influenza vaccination INFLUENZA (#1) [facility] Start: 05-29-2021 DEPRESSION ASSESSMENT DEPRESSION ASS ESSMENT [facility] Start: 2020 HPV TESTING HPV TESTING [facility] Start: 2020 Screening for malign ant neoplasm of cervix HPV Testing [facility] Start: 02-13-2019 Urine microalbumin profile [facility] Start: 07-31-2011 PAP TESTING PAP TESTING [facility] Start: 07-31-2011 Screening for malign ant neoplasm of cervix [facility] Start: 2009 Hepatitis B Vaccine (1 of 3 - 19+ 3-dose series) Hepatitis B Vaccine (1 of 3 - 19+ 3-dose series) [facility] Start: 2008 Anxiety Screening Anxiety Screening [facility] Start: 2008 Depression Screening Depression Scre ening [facility] Start: 2008 HEPATITIS C SCREENING HEPATITIS C SC REENING [facility] Start: 2008 Hepatitis C screening Hepatitis C William veronica [facility] Start: 2008 HIV SCREENING HIV SCREENING [facility] Start: 2008 HIV screening HIV Screening [facility] Start: 1990 HEPATITIS B (1 of 3 - 3-dose series) HEPATITIS B (1 of 3 - 3-dose series) [facility] Start: 1990 Hepatitis B Vaccine (1 of 3 - 3-dose series) Hepatitis B Vaccine (1 of 3 - 3-dose series) [facility] Bacteria identified in Urine by Culture URINE CULTURE Microbiology Routine Acute UTI 04/06/2023 9:54 AM EST [facility] Work Phone: Bacteria identified in Urine by Culture URINE CULTURE Microbiology Routine Burning with urination Ordered: 07/23/2023 [facility] Work Phone: Comment on above: Ordered: 07/23/2023 End: 03-07-2023 EGD DIAGNOSTIC EGD DIAGNOSTIC Endoscopy Routine RUQ pain Nausea 1 Occurrences starting 03/07/2022 until 03/07/2023 [facility] Work Phone: Comment on above: 1 Occurrences starti ng 03/07/2022 until 03/07/2023 End: 03-03-2023 Hepatobil syst imag inc gb w/pharma intervenj NM HEPATOBILIARY W EF AND/OR RX Radiology Routine Calculus of gallbladder without cholecystitis without obstruction Nausea 1 Occurrences starting 02/01/2022 until 03/03/2023 [facility] Work Phone: Comment on above: 1 Occurrences starti ng 02/01/2022 until 03/03/2023 End: 02-27-2023 Mri abdomen w/o & w/contrast material MRI LIVER WO/W IVCON Radiology Routine Liver lesion 1 Occurrences starting 01/28/2022 until 02/27/2023 [facility] Work Phone: Comment on above: 1 Occurrences starti ng 01/28/2022 until 02/27/2023 End: 09-06-2024 XR Knee - bilateral 4 Views XR KNEE GENERAL 4V AP BOTH/PA BOTH/LAT/MERC BILATERAL Radiology Routine Chronic pain of both knees 1 Occurrences starting 08/08/2023 until 09/06/2024 [facility] Work Phone: Comment on above: 1 Occurrences starti ng 08/08/2023 until 09/06/2024 XR Knee - bilateral 4 Views XR KNEE GENERAL 4V AP BOTH/PA BOTH/LAT/MERC BILATERAL Radiology Routine Chronic pain of both knees 08/08/2023 12:33 PM EDT [facility] Work Phone: [facility] Immunizations Immunization Date Immunization Notes Care Provider Arun cifuentes 03-16-2022 influenza virus vacc ine, unspecified formulation Fallon Prakash PA-C Work Phone: [facility] 05-14-2021 influenza, injectabl e, quadrivalent, contains preservative Anjana Saavedra APRN.SECURITY AND COMPLIANCE ANALYST Work Phone: [facility] 02-12-2019 tetanus and diphther ia toxoids, adsorbed, preservative free, for adult use (5 Lf of tetanus toxoid and 2 Lf of diphtheria toxoid) Anjana Saavedra APRN.SECURITY AND COMPLIANCE ANALYST Work Phone: [facility] Payers Date Payer Category Payer Unknown [id number] 2016 Unknown [employer] PPO OOS [id number] 2016-Present [phone] [facility] [id number] [place] [address] PPO [id number] 2016 Unknown [id number] Social History Date Type Detail Facility Start: 09-11-2018 End: 01-25-2022 Tobacco smoking status NHIS Never smoked tobacco [facility] Start: 09-11-2018 End: 01-25-2022 Tobacco use and exposure Smokeless tobacco non-user [facility] Start: 07-05-2021 End: 08-08-2023 Alcohol intake Current drinker of alcohol (finding) [facility] Start: 07-05-2021 History SDOH Alcohol Comment rarely [facility] Start: 1990 Sex Assigned At Not on file [facility] Start: 01-15-2022 End: 04-11-2022 Exposure to SARS-CoV-2 (event) Not sure [facility] Start: 12-05-2022 End: 08-08-2023 History of Social function [facility] Start: 12-05-2022 End: 08-08-2023 Social connection and isolation panel [facility] Do you belong to any clubs or organizations such as taoism groups, unions, fraternal or athletic groups, or school groups? No [facility] Are you now , , , , never or living with a partner? [facility] How often to you hav e a drink containing alcohol? 2-4 times a month [facility] How many standard dr inks containing alcohol do you have on a typical day? 1 or 2 [facility] How often do you hav e 6 or more drinks on 1 occasion? Never [facility] How hard is it for y ou to pay for the very basics like food, housing, medical care, and heating Not very hard [facility] Adult Depression Screening Assessment 0 [facility] Work Phone: Do you feel stress - tense, restless, nervous, or anxious, or unable to sleep at night because your mind is troubled all the time - these days [OSQ] To some extent [facility] (I/We) worried whegt er (my/our) food would run out before (I/we) got money to buy more. Never true [facility] Start: 12-02-2022 Gender identity Identifies as female gender (finding) [facility] How often to you hav e a drink containing alcohol? Monthly or less [facility] Clinical Notes 11-09-2021 to 02-12-2024 Addendum Note - Emily Neumann APRN.[facility] 01/05/2024 2:33 PM EDTAddendum Note - Emiyl Neumann APRN.SECURITY AND COMPLIANCE ANALYST 01/05/2024 2:33 PM Emily Bajwa APRN.CNP - 01/05/2024 2:25 PM EDT Note Date & Type Note Facility 02-12-2024 Note HNO ID: [id number] Author: SHWETA KEENE PT Service: ? Author Type: Physical Therapist Type: Progress Notes Filed: 02/12/2024 09:39 Note Text: 02/12/2024 [facility] PHYSICAL THERAPY DISCONTINUANCE OF CARE Plan of Care Period: Start of Care Date: 08/14/23 Last Visit Date: 09/01/2023 Therapy Program: The following is a summary of the interventions provided for this episode of care; Therapeutic exercise, Self-senior living management, and Patient/Family/Caregiver Education Assessment: Based on most recent visit, patient was progressing as expected toward functional goals based on documented subjective information on progress and documented objective information regarding overall function, strength, and symptom management. Unable to formally assess goal achievement, as patient has not returned to therapy or scheduled additional follow-up appointments. Reason for Discontinuation of Care: Patient has not returned to therapy or scheduled additional follow-up appointments. Shweta Keene, PT [facility] 01-05-2024 Note Addended by: EMILY NEUMANN on: 01/05/2024 02:33 PM Modules accepted: Orders [facility] 01-05-2024 Miscellaneous Notes Addended by: EMILY NEUMANN on: 01/05/2024 02:33 PM Modules accepted: Orders documented in this encounter [facility] 01-05-2024 Note HNO ID: [id number] Author: EMILY NEUMANN APRN.CNP Service: ? Author Type: Nurse Practitioner Type: Progress Notes Filed: 01/05/2024 14:32 Note Text: Chief Complaint Patient presents with: Rectal Problem: X 2 months HPI Ara Gonzalez is a 33 year old female who presents here today for Above Complaints.. Patient presents for rectal pain with BM x2 months. Patient reports she has always had problems with constipation and since having her gallbladder out she has alternating constipation and diarrhea. Patient reports blood when wiping after BM at times. Past medical history, appointments, medications, allergies reviewed. Previous Medical History PAST MEDICAL HISTORY No date: Cholelithiasis No date: Known health problems: none Previous Surgical History PAST SURGICAL HISTORY 04/05/2022: LAPAROSCOPIC CHOLECYSTECTOMY No date: TONSILLECTOMY HX Family History FAMILY HISTORY Problem Relation Age of Onset Diabetes Mother Hypertension Father other (heart conditions) Father No Known Problems Brother Diabetes Maternal Grandmother No Known Problems Maternal Grandfather No Known Problems Paternal Grandmother Heart Attack Paternal Grandfather Colon Cancer No Family History Patient Allergies ALLERGIES No Known Allergies Current Medications Current Outpatient Medications on File Prior to Visit Medication Sig cetirizine (ZYRTEC) 10 mg tablet Take 10 mg by mouth once daily. fexofenadine-pseudoephedrine (CLARENCE D) 60-120 mg per tablet Take 1 tablet by mouth twice daily. (Patient not taking: Reported on 10/02/2023) Desogestrel-Ethinyl Estradiol 0.15-0.03 mg per tablet Take 1 tablet by mouth once daily. No current facility-administered medications on file prior to visit. Social History Social History Tobacco Use Smoking status: Never Smokeless tobacco: Never Vaping Use Vaping Use: Former Substances: Nicotine, Flavoring Devices: Digifeyeble tank Substance Use Topics Alcohol use: Yes Comment: rarely Drug use: Never Review of Symptoms REVIEW OF SYSTEMS SEE HPI EXAM: BP 112/80 Pulse 77 Resp 14 Wt 119.3 kg (263 lb) LMP 03/09/2022 (Exact Date) BMI 46.59 kg/m? General Appearance: Well appearing, alert, in no acute distress, well-hydrated, well nourished.. Abdomen: Normal abdominal exam, Abdomen soft, non-tender. Bowel sounds normal. No masses, organomegaly. Rectal: Negative findings: perianal area normal, anus normal, Positive findings: pain with digital rectal exam to anterior aspect of rectum. No blood noted. Health Maintenance List Depression Screening Never done Anxiety Screening Never done Hepatitis C Screening Never done HIV Screening Never done Hepatitis B Vaccine(1 of 3 - 19+ 3-dose series) Never done Cervical Cancer Screening Never done Covid-19 Vaccine(2022- season) due on 01/27/2023 Influenza Vaccine(1) due on 01/28/2024 DTaP,Tdap,Td Vaccine(2 - Td or Tdap) due on 08/06/2033 HPV Vaccine Aged Out ASSESSMENT/PLAN: 1. Irritable bowel syndrome with constipation and diarrhea - ICD9: 564.1, ICD10: K58.2 (primary diagnosis) - CONSULT TO GASTROENTEROLOGY 2. Internal hemorrhoids - ICD9: 455.0, ICD10: K64.8 - HYDROCORTISONE 2.5 % TOPICAL CREAM WITH PERINEAL APPLICATOR Emily Neumann APRN.[facility] 01-05-2024 History of Presen t illness Narrative Chief Complaint Patient presents with: Rectal Problem: X 2 months HPI Ara Gonzalez is a 33 year old female who presents here today for Above Complaints.. Patient presents for rectal pain with BM x2 months. Patient reports she has always had problems with constipation and since having her gallbladder out she has alternating constipation and diarrhea. Patient reports blood when wiping after BM at times. Past medical history, appointments, medications, allergies reviewed. Previous Medical History PAST MEDICAL HISTORY No date: Cholelithiasis No date: Known health problems: none Previous Surgical History PAST SURGICAL HISTORY 04/05/2022: LAPAROSCOPIC CHOLECYSTECTOMY No date: TONSILLECTOMY HX Family History FAMILY HISTORY Problem Relation Age of Onset Diabetes Mother Hypertension Father other (heart conditions) Father No Known Problems Brother Diabetes Maternal Grandmother No Known Problems Maternal Grandfather No Known Problems Paternal Grandmother Heart Attack Paternal Grandfather Colon Cancer No Family History Patient Allergies ALLERGIES No Known Allergies Current Medications Current Outpatient Medications on File Prior to Visit Medication Sig cetirizine (ZYRTEC) 10 mg tablet Take 10 mg by mouth once daily. fexofenadine-pseudoephedrine (CLARENCE D) 60-120 mg per tablet Take 1 tablet by mouth twice daily. (Patient not taking: Reported on 10/02/2023) Desogestrel-Ethinyl Estradiol 0.15-0.03 mg per tablet Take 1 tablet by mouth once daily. No current facility-administered medications on file prior to visit. Social History Social History Tobacco Use Smoking status: Never Smokeless tobacco: Never Vaping Use Vaping Use: Former Substances: Nicotine, Flavoring Devices: RefDreamitizeble tank Substance Use Topics Alcohol use: Yes Comment: rarely Drug use: Never Review of Symptoms REVIEW OF SYSTEMS SEE HPI EXAM: BP 112/80 Pulse 77 Resp 14 Wt 119.3 kg (263 lb) LMP 03/09/2022 (Exact Date) BMI 46.59 kg/m General Appearance: Well appearing, alert, in no acute distress, well-hydrated, well nourished.. Abdomen: Normal abdominal exam, Abdomen soft, non-tender. Bowel sounds normal. No masses, organomegaly. Rectal: Negative findings: perianal area normal, anus normal, Positive findings: pain with digital rectal exam to anterior aspect of rectum. No blood noted. Health Maintenance List Depression Screening Never done Anxiety Screening Never done Hepatitis C Screening Never done HIV Screening Never done Hepatitis B Vaccine(1 of 3 - 19+ 3-dose series) Never done Cervical Cancer Screening Never done Covid-19 Vaccine(2022- season) due on 01/27/2023 Influenza Vaccine(1) due on 01/28/2024 DTaP,Tdap,Td Vaccine(2 - Td or Tdap) due on 08/06/2033 HPV Vaccine Aged Out ASSESSMENT/PLAN: 1. Irritable bowel syndrome with constipation and diarrhea - ICD9: 564.1, ICD10: K58.2 (primary diagnosis) - CONSULT TO GASTROENTEROLOGY 2. Internal hemorrhoids - ICD9: 455.0, ICD10: K64.8 - HYDROCORTISONE 2.5 % TOPICAL CREAM WITH PERINEAL APPLICATOR Emily Neumann APRN.SECURITY AND COMPLIANCE ANALYST documented in this encounter [facility] 10-02-2023 Note HNO ID: [id number] Author: UCHE ALBERTO MD Service: ? Author Type: Physician Type: Progress Notes Filed: 10/02/2023 14:23 Note Text: Uche Alberto MD Department of Orthopaedics Orthopaedics [address] [facility] [address] Dept: [phone] Dept October 02, 2023 CHIEF COMPLAINT: New Patient and Knee Pain of the Left Knee and New Patient and Knee Pain of the Right Knee HPI Patient referred by PCP's office for B/L patellar subluxation. Reports crunching and pain in knees. Started 6 months ago after she was dancing for most of the evening at a wedding. Pain is intermittent but worse and more frequent in L knee. Notices pain with activity such as pedaling a bike. XR completed on 08/07. Completed Physical Therapy and is continuing home exercises. AMB ROOMING INTAKE FLOWSHEET DATA Pain Pain Level: 7 Pain Location: Other: See Comment (B/L knees) Description: Aching, Sharp Duration Amount of Time: 6 Duration Units: Months Frequency: Intermittent Intervention/Comfort measure: Massage, Reposition, Relaxation, Medication (naproxen) Patient presents with: Left Knee - New Patient, Knee Pain Right Knee - New Patient, Knee Pain ASSESSMENT: S83.003A Subluxation of patellofemoral joint, unspecified laterality, initial encounter PLAN: She has been doing some therapy and the left knee is calm down quite a bit. We had a lengthy discussion about her maltracking. She is going to continue with some intermittent anti-inflammatories and we will follow along with her therapy program. FOLLOW UP INSTRUCTIONS: As needed OBJECTIVE: Ms. Ara Gonzalez is a pleasant 33 year old in no apparent distress. Gen:LMP 03/09/2022 nl development, obese, no deformities ENT: Normocephalic, normal hearing, moist mucosa CV: Pulses:DP/PT= 2+ and symmetric, capillary refill < 2 secs, no peripheral edema/varicosities Skin: no rash, bruising or lesions. Good turgor. Psych: cooperative and appropriate, alert and oriented x 3, good mood and affect. Musculoskeletal: Patient walks without antalgia. Obvious tilt to bilateral patella. Mild crepitance on the left greater than right. Good range of motion. No effusion. No further instability noted. IMAGING: IMPRESSION: Bilateral patellar subluxation. Servomechanism Assembler: WERNER Transcribe Date/Time: Aug 09 2023 5:23P Dictated by : ANDREAS MELGAR MD This examination was interpreted and the report reviewed and electronically signed by: NADREAS MELGAR MD on Aug 09 2023 5:24PM EST Results-Findings * * *Final Report* * * DATE OF EXAM: Aug 08 2023 12:33PM WOX [id number] - XR KNEE 4V AP/PA/LAT/MERCH RICHARD / PROCEDURE REASON: multiple diagnoses * * * * Physician Interpretation * * * * EXAM TITLE: XR KNEE 4V AP/PA/LAT/MERCH RICHARD EXAM DATE/TIME: 08/08/2023 12:33 PM COMPARISON: None. CLINICAL INDICATION/HISTORY: Chronic knee pain. TECHNIQUE: AP/PA, lateral and sunrise views of both knees are presented. FINDINGS: No acute fracture seen. Bilateral patellar mild lateral subluxation noted on sunrise view. Tiny bone spur seen along the left patella. The joint spaces are well preserved. There is no evidence of joint effusion. The mineralization of the bones is normal. There is no significant soft tissue swelling. Supporting Subjective Information Below: Past Medical History: PAST MEDICAL HISTORY Diagnosis Date Cholelithiasis Known health problems: none Past Surgical History: PAST SURGICAL HISTORY Procedure Laterality Date LAPAROSCOPIC CHOLECYSTECTOMY 04/05/2022 TONSILLECTOMY HX Family History: FAMILY HISTORY Problem Relation Age of Onset Diabetes Mother Hypertension Father other (heart conditions) Father No Known Problems Brother Diabetes Maternal Grandmother No Known Problems Maternal Grandfather No Known Problems Paternal Grandmother Heart Attack Paternal Grandfather Colon Cancer No Family History Social History: Social History Tobacco Use Smoking status: Never Smokeless tobacco: Never Vaping Use Vaping Use: Former Substances: Nicotine, Flavoring Devices: epacube tank Substance Use Topics Alcohol use: Yes Comment: rarely Drug use: Never Medications: Current Outpatient Medications Medication Sig cetirizine (ZYRTEC) 10 mg tablet Take 10 mg by mouth once daily. Desogestrel-Ethinyl Estradiol 0.15-0.03 mg per tablet Take 1 tablet by mouth once daily. fexofenadine-pseudoephedrine (CLARENCE D) 60-120 mg per tablet Take 1 tablet by mouth twice daily. (Patient not taking: Reported on 10/02/2023) No current facility-administered medications for this visit. Allergies: Patient has no known allergies. ROS: General (negative for fatigue, malaise, weight loss/gain) HEENT (negative for headache, earache, recent vision changes, sinus pain, sore throat) Respiratory (no recent shortness of breath, hemoptysis) CV (negative for chest tightness, palpitations) (more content not included)... [facility] 10-02-2023 History of Presen t illness Narrative Uche Alberto MD Department of Orthopaedics Orthopaedics [address] [facility] [id number] Dept: [phone] Dept October 02, 2023 CHIEF COMPLAINT: New Patient and Knee Pain of the Left Knee and New Patient and Knee Pain of the Right Knee HPI Patient referred by PCP's office for B/L patellar subluxation. Reports crunching and pain in knees. Started 6 months ago after she was dancing for most of the evening at a wedding. Pain is intermittent but worse and more frequent in L knee. Notices pain with activity such as pedaling a bike. XR completed on 08/07. Completed Physical Therapy and is continuing home exercises. AMB ROOMING INTAKE FLOWSHEET DATA Pain Pain Level: 7 Pain Location: Other: See Comment (B/L knees) Description: Aching, Sharp Duration Amount of Time: 6 Duration Units: Months Frequency: Intermittent Intervention/Comfort measure: Massage, Reposition, Relaxation, Medication (naproxen) Patient presents with: Left Knee - New Patient, Knee Pain Right Knee - New Patient, Knee Pain ASSESSMENT: S83.003A Subluxation of patellofemoral joint, unspecified laterality, initial encounter PLAN: She has been doing some therapy and the left knee is calm down quite a bit. We had a lengthy discussion about her maltracking. She is going to continue with some intermittent anti-inflammatories and we will follow along with her therapy program. FOLLOW UP INSTRUCTIONS: As needed OBJECTIVE: Ms. Ara Gonzalez is a pleasant 33 year old in no apparent distress. Gen:LMP 03/09/2022 nl development, obese, no deformities ENT: Normocephalic, normal hearing, moist mucosa CV: Pulses:DP/PT= 2+ and symmetric, capillary refill < 2 secs, no peripheral edema/varicosities Skin: no rash, bruising or lesions. Good turgor. Psych: cooperative and appropriate, alert and oriented x 3, good mood and affect. Musculoskeletal: Patient walks without antalgia. Obvious tilt to bilateral patella. Mild crepitance on the left greater than right. Good range of motion. No effusion. No further instability noted. IMAGING: IMPRESSION: Bilateral patellar subluxation. Servomechanism Assembler: WERNER Transcribe Date/Time: Aug 09 2023 5:23P Dictated by : ANDREAS MELGAR MD This examination was interpreted and the report reviewed and electronically signed by: ANDREAS MELGAR MD on Aug 09 2023 5:24PM EST Results-Findings * * *Final Report* * * DATE OF EXAM: Aug 08 2023 12:33PM WOX [id number] - XR KNEE 4V AP/PA/LAT/MERCH RICHARD / PROCEDURE REASON: multiple diagnoses * * * * Physician Interpretation * * * * EXAM TITLE: XR KNEE 4V AP/PA/LAT/MERCH RICHARD EXAM DATE/TIME: 08/08/2023 12:33 PM COMPARISON: None. CLINICAL INDICATION/HISTORY: Chronic knee pain. TECHNIQUE: AP/PA, lateral and sunrise views of both knees are presented. FINDINGS: No acute fracture seen. Bilateral patellar mild lateral subluxation noted on sunrise view. Tiny bone spur seen along the left patella. The joint spaces are well preserved. There is no evidence of joint effusion. The mineralization of the bones is normal. There is no significant soft tissue swelling. Supporting Subjective Information Below: Past Medical History: PAST MEDICAL HISTORY Diagnosis Date Cholelithiasis Known health problems: none Past Surgical History: PAST SURGICAL HISTORY Procedure Laterality Date LAPAROSCOPIC CHOLECYSTECTOMY 04/05/2022 TONSILLECTOMY HX Family History: FAMILY HISTORY Problem Relation Age of Onset Diabetes Mother Hypertension Father other (heart conditions) Father No Known Problems Brother Diabetes Maternal Grandmother No Known Problems Maternal Grandfather No Known Problems Paternal Grandmother Heart Attack Paternal Grandfather Colon Cancer No Family History Social History: Social History Tobacco Use Smoking status: Never Smokeless tobacco: Never Vaping Use Vaping Use: Former Substances: Nicotine, Flavoring Devices: Refillable tank Substance Use Topics Alcohol use: Yes Comment: rarely Drug use: Never Medications: Current Outpatient Medications Medication Sig cetirizine (ZYRTEC) 10 mg tablet Take 10 mg by mouth once daily. Desogestrel-Ethinyl Estradiol 0.15-0.03 mg per tablet Take 1 tablet by mouth once daily. fexofenadine-pseudoephedrine (CLARENCE D) 60-120 mg per tablet Take 1 tablet by mouth twice daily. (Patient not taking: Reported on 10/02/2023) No current facility-administered medications for this visit. Allergies: Patient has no known allergies. ROS: General (negative for fatigue, malaise, weight loss/gain) HEENT (negative for headache, earache, recent vision changes, sinus pain, sore throat) Respiratory (no recent shortness of breath, hemoptysis) CV (negative for chest tightness, palpitations) Musculoskeletal (see HPI) Psych (no depression, anxiety) REFERRING PHYSICIAN: Consultation requested by Alecia Pérezlogmeka for an opinion regarding patella subluxation. My final recommendations will be communicated back to the requesting physician by way of shared Medical record or letter to requesting physician via US mail. Alecia Pérezlogmeka [address] [facility] [address] Kim Celestin MD [address] [facility] [address] Uche Alberto MD documented in this encounter [facility] 09-25-2023 Telephone encounter Note Pt notified and verbalized understanding Ashley Harris MA [facility] 09-25-2023 Miscellaneous Notes Pt notified and verbalized understanding Ashley Harris MA Please let patient know her blood flow studies are normal. documented in this encounter [facility] 09-25-2023 Telephone encounter Note Please let patient know her blood flow studies are normal. [facility] Work Phone: 09-01-2023 Note HNO ID: [id number] Author: SHWETA KEENE PT Service: ? Author Type: Physical Therapist Type: Progress Notes Filed: 09/01/2023 16:39 Note Text: Episode Visit Count: 5 Therapist That Will Accept/Oversee The Plan Of Care: Shweta Keene Start of Care Date: 08/14/23 Onset Date: (Fall of last year) Patient Identified by Name and Date of : Yes REHABILITATION AND SPORTS THERAPY PHYSICAL THERAPY TREATMENT NOTE ASSESSMENT: Ara Gonzalez tolerated the session with fatigue and expected muscle soreness. She demonstrated improvements in tolerance to standing exercise. The patient will continue to benefit from ongoing skilled physical therapy to progress toward set goals. PLAN FOR NEXT VISIT: Add standing hip exercises to HEP. Trial BOSU step ups SUBJECTIVE: Pt reports that she saw Emily Neumann in regards to LLE swelling. Pt referred for vascular consult and US to rule out DVT of LLE. Pt states that her knees are feeling good today. Pt also thinks that the left knee cap has shifted more medially, but R knee is still more lateral. Pain: Pain Pain Level: 0 Pain Location: Knee - Left, Knee - Right Post Treatment Pain Post Treatment Pain Level: 0 Post Treatment Pain Location: Knee - Left, Knee - Right OBJECTIVE MEASURES WITH LEVEL OF FUNCTION: Good quad control with step downs TREATMENT: Therapeutic Exercise: 1: Stationary bike, seat # 8 x 5 minutes. (1:1 throughout. Discussed current HEP.) 2: Side stepping with GTB with neutral foot alignment and ER x 20 ft each direction 3: Step ups on 6 inch step 2x10 B 4: Lateral step ups on 6 inch step 2x10 B 5: Step downs on 6 inch step x 10 B 6: LAQ 2x10 B 7: Standing hip abduction 2x10 B Skilled Intervention: Patient was educated in proper exercise technique and purpose for exercises. Skilled judgment was used in selection of appropriate interventions. Correct performance of therapeutic exercises was facilitated with verbal and visual cuing. Billing Therapeutic Exercise Treatment Minutes: 42 Skilled Treatment Time Minutes (timed and untimed codes): 42 Total Session Time (minutes): 42 Session Start Time : 1400 Session Stop Time : 1442 Kimberly Stack, LEATHER WORKER Shweta Keene, PT [facility] 09-01-2023 History of Presen t illness Narrative Episode Visit Count: 5 Therapist That Will Accept/Oversee The Plan Of Care: Shweta Keene Start of Care Date: 08/14/23 Onset Date: (Fall of last year) Patient Identified by Name and Date of : Yes REHABILITATION AND SPORTS THERAPY PHYSICAL THERAPY TREATMENT NOTE ASSESSMENT: Ara Gonzalez tolerated the session with fatigue and expected muscle soreness. She demonstrated improvements in tolerance to standing exercise. The patient will continue to benefit from ongoing skilled physical therapy to progress toward set goals. PLAN FOR NEXT VISIT: Add standing hip exercises to HEP. Trial BOSU step ups SUBJECTIVE: Pt reports that she saw Emily Neumann in regards to LLE swelling. Pt referred for vascular consult and US to rule out DVT of LLE. Pt states that her knees are feeling good today. Pt also thinks that the left knee cap has shifted more medially, but R knee is still more lateral. Pain: Pain Pain Level: 0 Pain Location: Knee - Left, Knee - Right Post Treatment Pain Post Treatment Pain Level: 0 Post Treatment Pain Location: Knee - Left, Knee - Right OBJECTIVE MEASURES WITH LEVEL OF FUNCTION: Good quad control with step downs TREATMENT: Therapeutic Exercise: 1: Stationary bike, seat # 8 x 5 minutes. (1:1 throughout. Discussed current HEP.) 2: Side stepping with GTB with neutral foot alignment and ER x 20 ft each direction 3: Step ups on 6 inch step 2x10 B 4: Lateral step ups on 6 inch step 2x10 B 5: Step downs on 6 inch step x 10 B 6: LAQ 2x10 B 7: Standing hip abduction 2x10 B Skilled Intervention: Patient was educated in proper exercise technique and purpose for exercises. Skilled judgment was used in selection of appropriate interventions. Correct performance of therapeutic exercises was facilitated with verbal and visual cuing. Billing Therapeutic Exercise Treatment Minutes: 42 Skilled Treatment Time Minutes (timed and untimed codes): 42 Total Session Time (minutes): 42 Session Start Time : 1400 Session Stop Time : 1442 Kimberly Josh, [facility] Shweta Keene PT documented in this encounter [facility] 09-01-2023 Note HNO ID: [id number] Author: EMILY NEUMANN APRN.SECURITY AND COMPLIANCE ANALYST Service: ? Author Type: Nurse Practitioner Type: Progress Notes Filed: 09/01/2023 13:06 Note Text: Chief Complaint Patient presents with: Leg Pain: Left leg pain and swelling X 5 months HPI Ara Gonzalez is a 33 year old female who presents here today for Above Complaints.. Patient presents for left leg swelling and pain. Patient reports her left lower leg is lumpy and swells frequently. Patient denies redness of warmth to left leg. Past medical history, appointments, medications, allergies reviewed. Previous Medical History PAST MEDICAL HISTORY Diagnosis Date Cholelithiasis Known health problems: none Previous Surgical History PAST SURGICAL HISTORY Procedure Laterality Date LAPAROSCOPIC CHOLECYSTECTOMY 04/05/2022 TONSILLECTOMY HX Family History FAMILY HISTORY Problem Relation Age of Onset Diabetes Mother Hypertension Father other (heart conditions) Father No Known Problems Brother Diabetes Maternal Grandmother No Known Problems Maternal Grandfather No Known Problems Paternal Grandmother Heart Attack Paternal Grandfather Colon Cancer No Family History Patient Allergies ALLERGIES No Known Allergies Current Medications Current Outpatient Medications on File Prior to Visit Medication Sig fexofenadine-pseudoephedrine (CLARENCE D) 60-120 mg per tablet Take 1 tablet by mouth twice daily. Desogestrel-Ethinyl Estradiol 0.15-0.03 mg per tablet Take 1 tablet by mouth once daily. No current facility-administered medications on file prior to visit. Social History Social History Tobacco Use Smoking status: Never Smokeless tobacco: Never Vaping Use Vaping Use: Former Substances: Nicotine, Flavoring Devices: [place] Substance Use Topics Alcohol use: Yes Comment: rarely Drug use: Never Review of Symptoms REVIEW OF SYSTEMS SEE HPI EXAM: BP 130/76 Pulse 68 Resp 14 Wt 119.3 kg (263 lb) LMP 03/09/2022 (Exact Date) BMI 46.59 kg/m? General Appearance: Well appearing, alert, in no acute distress, well-hydrated, well nourished.. Extremities: Positive findings: Generalized non pitting edema to left leg. . Health Maintenance List Hepatitis C Screening Never done HIV Screening Never done Hepatitis B Vaccine(1 of 3 - 19+ 3-dose series) Never done Pap Testing Never done HPV Testing Never done Covid-19 Vaccine(2022- season) due on 01/27/2023 Behavioral Health Screening Never done Influenza Vaccine(Season Ended) due on 01/28/2024 DTaP,Tdap,Td Vaccine(2 - Td or Tdap) due on 08/06/2033 HPV Vaccine Aged Out ASSESSMENT/PLAN: 1. Pain and swelling of left lower leg - ICD9: 729.5, 729.81, ICD10: M79.662, M79.89 - PVR ANK PRESS RICHARD VAS LAB - US DVT LOWER LEFT Emily Neumann APRN.SECURITY AND COMPLIANCE ANALYST [facility] 08-29-2023 Note HNO ID: [id number] Author: BRI HOGAN, PT Service: ? Author Type: Physical Therapist Type: Progress Notes Filed: 08/29/2023 15:04 Note Text: Episode Visit Count: 4 Therapist That Will Accept/Oversee The Plan Of Care: Shweta Keene Start of Care Date: 08/14/23 Onset Date: (Fall of last year) Patient Identified by Name and Date of : Yes REHABILITATION AND SPORTS THERAPY PHYSICAL THERAPY TREATMENT NOTE ASSESSMENT: Ara Gonzalez tolerated the session with fatigue. She demonstrated improvements in standing B knee strengthening exercises without pain. The patient will continue to benefit from ongoing skilled physical therapy to progress toward set goals. PLAN FOR NEXT VISIT: Asses response to step ups and mini squats SUBJECTIVE: Pt reports that her knees are not really hurting. Pt states she is trying to do some of the exercises, not all of them. Pain: Pain Pain Level: 0 Pain Location: Knee - Right, Knee - Left (top of patella ( crescent shape )) Post Treatment Pain Post Treatment Pain Level: 0 Post Treatment Pain Location: Knee - Left, Knee - Right OBJECTIVE MEASURES WITH LEVEL OF FUNCTION: Pt able to complete LAQ without pain in B knees. Slight color variation in lower LLE versus RLE, but no temperature difference. TREATMENT: Therapeutic Exercise: 1: Stationary bike, seat # 8 x 4 minutes. (1:1 throughout. Discussed current HEP.) 2: Step ups on 6 inch step 2x10 B 3: Lateral step ups on 6 inch step 2x10 B 4: Mini squats at // bars 2x10 5: LAQ 2x5 B Skilled Intervention: Patient was educated in proper exercise technique and purpose for exercises. Skilled judgment was used in selection of appropriate interventions. Correct performance of therapeutic exercises was facilitated with verbal and visual cuing. Billing Therapeutic Exercise Treatment Minutes: 40 Skilled Treatment Time Minutes (timed and untimed codes): 40 Total Session Time (minutes): 40 Session Start Time : 1211 Session Stop Time : 1251 CHINMAY Regan, PT [facility] 08-29-2023 History of Presen t illness Narrative Episode Visit Count: 4 Therapist That Will Accept/Oversee The Plan Of Care: Shweta Keene Start of Care Date: 08/14/23 Onset Date: (Fall of last year) Patient Identified by Name and Date of : Yes REHABILITATION AND SPORTS THERAPY PHYSICAL THERAPY TREATMENT NOTE ASSESSMENT: Ara Gonzalez tolerated the session with fatigue. She demonstrated improvements in standing B knee strengthening exercises without pain. The patient will continue to benefit from ongoing skilled physical therapy to progress toward set goals. PLAN FOR NEXT VISIT: Asses response to step ups and mini squats SUBJECTIVE: Pt reports that her knees are not really hurting. Pt states she is trying to do some of the exercises, not all of them. Pain: Pain Pain Level: 0 Pain Location: Knee - Right, Knee - Left (top of patella ( crescent shape )) Post Treatment Pain Post Treatment Pain Level: 0 Post Treatment Pain Location: Knee - Left, Knee - Right OBJECTIVE MEASURES WITH LEVEL OF FUNCTION: Pt able to complete LAQ without pain in B knees. Slight color variation in lower LLE versus RLE, but no temperature difference. TREATMENT: Therapeutic Exercise: 1: Stationary bike, seat # 8 x 4 minutes. (1:1 throughout. Discussed current HEP.) 2: Step ups on 6 inch step 2x10 B 3: Lateral step ups on 6 inch step 2x10 B 4: Mini squats at // bars 2x10 5: LAQ 2x5 B Skilled Intervention: Patient was educated in proper exercise technique and purpose for exercises. Skilled judgment was used in selection of appropriate interventions. Correct performance of therapeutic exercises was facilitated with verbal and visual cuing. Billing Therapeutic Exercise Treatment Minutes: 40 Skilled Treatment Time Minutes (timed and untimed codes): 40 Total Session Time (minutes): 40 Session Start Time : 1211 Session Stop Time : 1251 CHINMAY Regan PT documented in this encounter [facility] 08-25-2023 Note HNO ID: [id number] Author: SHWETA KEENE PT Service: ? Author Type: Physical Therapist Type: Progress Notes Filed: 08/25/2023 16:32 Note Text: Episode Visit Count: 3 Therapist That Will Accept/Oversee The Plan Of Care: Shweta Keene Start of Care Date: 08/14/23 Onset Date: (Fall of last year) Patient Identified by Name and Date of : Yes REHABILITATION AND SPORTS THERAPY PHYSICAL THERAPY TREATMENT NOTE ASSESSMENT: Ara Gonzalez tolerated the session with fatigue and expected muscle soreness. She demonstrated difficulty with SAQ and LAQ. The patient will continue to benefit from ongoing skilled physical therapy to progress toward set goals. PLAN FOR NEXT VISIT: Consider step ups on 4 inch step or standing TKE SUBJECTIVE: Pt reports that her knees are not feeling too bad. Pain: Pain Pain Level: 0 Pain Location: Knee - Right, Knee - Left (top of patella ( crescent shape )) Post Treatment Pain Post Treatment Pain Level: Better Post Treatment Pain Location: Knee - Left, Knee - Right OBJECTIVE MEASURES WITH LEVEL OF FUNCTION: Audible popping with SAQ in R knee. TREATMENT: Therapeutic Exercise: 1: Seated HS stretch 3x30 seconds B 2: Stationary bike x 4 minutes. (1:1 throughout) 3: Attempted LAQ and SAQ, uncomfortable, discontinued for now 4: Quad sets with roll under ankle 2x10 5: *Prone hip extension 2x10 B 6: Bridges 2x10 Skilled Intervention: Patient was educated in proper exercise technique and purpose for exercises. Reviewed and educated patient on additions/changes for home exercise program as above (*). Skilled judgment was used in selection of appropriate interventions. Provided written instruction for home exercise program to facilitate proper performance and compliance. Correct performance of therapeutic exercises was facilitated with verbal and visual cuing. Billing Therapeutic Exercise Treatment Minutes: 49 Skilled Treatment Time Minutes (timed and untimed codes): 49 Total Session Time (minutes): 49 Session Start Time : 1304 Session Stop Time : 1353 Kimberly Stack, LEATHER WORKER Shweta Keene, PT [facility] 08-21-2023 History of Presen t illness Narrative Program_ID:[id number] Access Code: [email or web address] URL: [email or web address] Date: 08-21-2023 Prepared By: Shweta Keene Program Notes Exercises - Supine Quadricep Sets - 2 x daily - 7 x weekly - 2 sets - 10 reps - Straight Leg Raise with External Rotation - 2 x daily - 7 x weekly - 4 sets - 5 reps - Supine Hip Adduction Isometric with Ball - 2 x daily - 7 x weekly - 2 sets - 10 reps - Hooklying Transversus Abdominis Palpation - 2 x daily - 7 x weekly - 1 sets - 10 reps - Clamshell - 1 x daily - 7 x weekly - 2 sets - 10 reps - Sidelying Hip Abduction - 1 x daily - 7 x weekly - 2 sets - 10 reps Episode Visit Count: 2 Therapist That Will Accept/Oversee The Plan Of Care: Jassi Shweta Start of Care Date: 08/14/23 Onset Date: (Fall of last ) Patient Identified by Name and Date of : Yes REHABILITATION AND SPORTS THERAPY PHYSICAL THERAPY TREATMENT NOTE ASSESSMENT: Ara Gonzalez tolerated the session with fatigue and expected muscle soreness. She demonstrated improvements in endurance with BLE strengthening exercises without increase in B knee pain. The patient will continue to benefit from ongoing skilled physical therapy to progress toward set goals. PLAN FOR NEXT VISIT: Trial bike as warm up . SUBJECTIVE: Pt reports that she missed a day of exercises and her knee hurt way worse than when she did do her exercises. Pt states that her L knee does not hurt, but the crunch has not gone away. Pain: Pain Pain Level: 0 Pain Location: Knee - Right, Knee - Left (top of patella ( crescent shape )) Post Treatment Pain Post Treatment Pain Level: Better Post Treatment Pain Location: Knee - Left, Knee - Right Post Treatment Symptoms: Pt states soreness along lateral thigh, but no increase in pain. OBJECTIVE MEASURES WITH LEVEL OF FUNCTION: Tighter HS on RLE vs. LLE. TREATMENT: Therapeutic Exercise: 1: Seated HS stretch 3x30 seconds B 2: quad sets with towel roll between knees (VMO focus) 5 sec holds 1 x 10, 1 x 5 3: SLR with hip ER (VMO focus) 4 x 5reps (modified with not as much ER, pt stated it was really bothering her, will eventually return to more ER) 4: *SL hip abduction 2x10 5: *Clamshells 2x10 6: Bridges 2x5 7: hooklying TA iso abs 5 sec holds 1 x 10 Skilled Intervention: Patient was educated in proper exercise technique and purpose for exercises. Reviewed and educated patient on additions/changes for home exercise program as above (*). Skilled judgment was used in selection of appropriate interventions. Provided written instruction for home exercise program to facilitate proper performance and compliance. Correct performance of therapeutic exercises was facilitated with verbal and visual cuing. Billing Therapeutic Exercise Treatment Minutes: 42 Skilled Treatment Time Minutes (timed and untimed codes): 42 Total Session Time (minutes): 42 Session Start Time : 1800 Session Stop Time : 1841 Kimberly Stack, LEATHER WORKER Shweta Keene PT documented in this encounter [facility] 08-21-2023 Note HNO ID: [id number] Author: SHWETA KEENE PT Service: ? Author Type: Physical Therapist Type: Progress Notes Filed: 08/21/2023 19:18 Note Text: Episode Visit Count: 2 Therapist That Will Accept/Oversee The Plan Of Care: Shweta Keene Start of Care Date: 08/14/23 Onset Date: (Fall of last year) Patient Identified by Name and Date of : Yes REHABILITATION AND SPORTS THERAPY PHYSICAL THERAPY TREATMENT NOTE ASSESSMENT: Ara Gonzalez tolerated the session with fatigue and expected muscle soreness. She demonstrated improvements in endurance with BLE strengthening exercises without increase in B knee pain. The patient will continue to benefit from ongoing skilled physical therapy to progress toward set goals. PLAN FOR NEXT VISIT: Trial bike as warm up . SUBJECTIVE: Pt reports that she missed a day of exercises and her knee hurt way worse than when she did do her exercises. Pt states that her L knee does not hurt, but the crunch has not gone away. Pain: Pain Pain Level: 0 Pain Location: Knee - Right, Knee - Left (top of patella ( crescent shape )) Post Treatment Pain Post Treatment Pain Level: Better Post Treatment Pain Location: Knee - Left, Knee - Right Post Treatment Symptoms: Pt states soreness along lateral thigh, but no increase in pain. OBJECTIVE MEASURES WITH LEVEL OF FUNCTION: Tighter HS on RLE vs. LLE. TREATMENT: Therapeutic Exercise: 1: Seated HS stretch 3x30 seconds B 2: quad sets with towel roll between knees (VMO focus) 5 sec holds 1 x 10, 1 x 5 3: SLR with hip ER (VMO focus) 4 x 5reps (modified with not as much ER, pt stated it was really bothering her, will eventually return to more ER) 4: *SL hip abduction 2x10 5: *Clamshells 2x10 6: Bridges 2x5 7: hooklying TA iso abs 5 sec holds 1 x 10 Skilled Intervention: Patient was educated in proper exercise technique and purpose for exercises. Reviewed and educated patient on additions/changes for home exercise program as above (*). Skilled judgment was used in selection of appropriate interventions. Provided written instruction for home exercise program to facilitate proper performance and compliance. Correct performance of therapeutic exercises was facilitated with verbal and visual cuing. Billing Therapeutic Exercise Treatment Minutes: 42 Skilled Treatment Time Minutes (timed and untimed codes): 42 Total Session Time (minutes): 42 Session Start Time : 1800 Session Stop Time : 1841 Kimberly Stack, LEATHER WORKER Shweta Keene PT [facility] 08-14-2023 History of Presen t illness Narrative Program_ID:[id number] Access Code: [email or web address] URL: [email or web address] Date: 08-14-2023 Prepared By: Shewta Keene Program Notes Exercises - Supine Quadricep Sets - 2 x daily - 7 x weekly - 2 sets - 10 reps - Straight Leg Raise with External Rotation - 2 x daily - 7 x weekly - 4 sets - 5 reps - Supine Hip Adduction Isometric with Ball - 2 x daily - 7 x weekly - 2 sets - 10 reps - Hooklying Transversus Abdominis Palpation - 2 x daily - 7 x weekly - 1 sets - 10 reps Episode Visit Count: 1 Therapist That Will Accept/Oversee The Plan Of Care: Shweta Keene Start of Care Date: 08/14/23 Onset Date: (Fall of last year) Patient Identified by Name and Date of : Yes REHABILITATION AND SPORTS THERAPY PHYSICAL THERAPY EVALUATION PLAN OF CARE: Assessment: Ara Gonzalez presents with diagnosis of chronic pain of both knees that interferes with stair negotiation, driving . She presents with impairments in flexibility, overall function, strength, symptom management, and patellofemoral mechanics. Patient did not complete the PROMIS (Patient Reported Outcome Measures Information System). Prognosis for therapy is Excellent due to: current objective clinical presentation, good overall health status, good support system/ coping skills . She will benefit from skilled therapy services to meet the goals established for this plan of care as noted below. Goals for Episode of Care: created on 08/14/23 through 10/14/23 Pt will demonstrate more normal patellofemoral tracking and mechanics. Chelan in home exercise program. Patient will decrease pain rating by 2 points to meet minimal clinical important difference for numeric pain rating scale. Patient will demonstrate increase in B quadricep (VMO focus), hip and core strength to 4+ to 5/5 during manual muscle testing in order to improve function for home management tasks, leisure / recreation skills, and prior functional tasks. Patient will increase flexibility of hamstrings and gastroc/soleus complex to 60-70 deg SLR, and 8-12 degrees DF to improve mechanics and decrease pain. Perform driving (prolonged sitting), and stair negotiation without pain. Reciprocal stair negotiation. Patient Goals: That they would not crunch as much and hopefully then the pain would not happen. Planned Interventions, Frequency, and Duration: Current Frequency: 2x/week Duration: 8 weeks Total Number of Visits Planned: 16 Planned Treatment Interventions: Therapeutic exercise (64403), Neuromuscular re-education (29404), Manual therapy (59631), Self-senior living management (58915), Patient/Family/Caregiver Education PLAN FOR NEXT VISIT: Assess response to and performance of HEP. Review with corrections/modifications as appropriate. May trial stationary bike if does not increase pain. Progress strengthening with VMO focus and hips/core. Patient demonstrates good understanding of plan of care and treatment. The above goals and plan of care were discussed and agreed upon by patient/family. SUBJECTIVE: Pt reports, R knee hurts the worst, but L knee makes the most noise. She states onset, after dancing for 4 hours straight at my brother's wedding this past fall . Overall, feels increasing weakness in legs (and overall) d/t decreased activity since working from home since COVID. History of L kneecap popping out laterally in highschool , but would resolve independently (Denies anyone having to reduce it or any treatment for it.). Better if gets up and moves knee around. Also relieves when pushes kneecap inferiorly with her hand. Patient Goals: That they would not crunch as much and hopefully then the pain would not happen. 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 Plays video games and drawing. Home Environment Home Type: (2 flights of stairs with railing) Intake Information: Prescription present Previous Treatment: None Pain: Pain Pain Level: 0 (up to 5-6/10) Pain Location: Knee - Right, Knee - Left (top of patella ( crescent shape )) Description: Aching, Burning Frequency: Intermittent Post Treatment Pain Post Treatment Pain Level: No Change Post Treatment Symptoms: Pt noting appropriate muscular fatigue at end of session. PROMIS Scales T-scores: mean of general population = 50. 5 points is clinically meaningfully difference Percentiles provide an indication of how the patient's score ranks in relation to the general population. Higher percentile rankings indicate better function/quality of life. 50th percentile is the average of the general population and indicates half of respondents had a worse score. OBJECTIVE MEASURES WITH LEVEL OF FUNCTION: Posture / Alignment LE Observations: low arches (R>L) and laterally sitting patellae in stance Knee Observations R Knee Palpation Tenderness: No tenderness noted L Knee Palpation Tenderness: No tenderness noted LE AROM R Knee Extension: -3 Degrees R Knee Flexion: 130 Degrees R Ankle Dorsiflexion: 4 Degrees L Knee Extension: -5 Degrees L Knee Flexion: 125 Degrees L Ankle Dorsiflexion: 0 Degrees (neutral) LE Flexibility Flexibility: Straight Leg Raise R SLR Flexibility: 45 deg tightnes sin post knee and calf L SLR Flexibility: 45 deg, tightness LE Strength R Hip ABduction: 4/5 R Hip ADduction: 4/5 R Knee Extension (L3): 4/5 (pain) R Knee Flexion: 5/5 R Ankle Dorsiflexion (L4): 4+/5 R Ankle Plantar Flexion: 5/5 L Hip ABduction: 4/5 L Hip ADduction: 4/5 L Knee Extension (L3): 4/5 (pain) L Knee Flexion: 5/5 L Ankle Dorsiflexion (L4): 4+/5 L Ankle Plantar Flexion: 5/5 Functional Strength Functional Strength: SLS able to maintain level pelvis (with each leg). Special Tests - Knee Knee Special Tests: Comments Special Tests Comments: Patellar hypermobility laterally. Medially, superior, and inferiorly WNL. Mild pain at end range lateral glide. Vitals BP: (not assessed today) Education: Education Learning Preferences: Demonstration, Explanation Barriers: None Learning/educational needs: Home exercise program, Plan of Care Education Provided: Yes, see treatment interventions for education provided Education Provided To: Patient Education Mode/Type: Demonstration, Explanation/Discussion, Literature/Printed Materials, Performance Response to Education/Teach Back: States/Identifies, Return Demonstration TREATMENT: PT Treatment Interventions: Therapeutic Exercise, Self-Jail Management Evaluation Therapeutic Exercise: 1: *quad sets with towel roll between knees (VMO focus) 5 sec holds 1 x 10, 1 x 5 2: *SLR with hip ER (VMO focus) 4 x 5reps 3: *B hip adductions 5 sec holds 2x 10 4: *hooklying TA iso abs 5 sec holds 1 x 10 Skilled Intervention: Patient was educated in proper exercise technique and purpose for exercises. Skilled judgment was used in selection of appropriate interventions. Provided written instruction for home exercise program to facilitate proper performance and compliance. Correct performance of therapeutic exercises was facilitated with verbal and visual cuing. Patient education as noted. Self-Jail Management: 1: Educated pt on knee anatomy and biomechanics in relation to her imaging and evaluation findings. Educated in purpose of exercises and goals for treatment. Educated in plan of care and possiblity of Kinesiotaping as needed for pain relief and function until strengthening and mechanics are improved. Since symptoms are intermittent, chose not to instruct in this today (first visit). All pt questions were answered to her satisfaction. Skilled Intervention: Skilled judgment in the selection of proper modification for activity of daily living/home management based on clinical presentation, deficits, and needs. Educated the patient regarding recommendations and provided written instruction to facilitate compliance. Reviewed patient specific diagnosis in relation to activities of daily living/home management. Billing * Evaluation Low Complexity: 1 Unit Therapeutic Exercise Treatment Minutes: 22 Self-Care/Home Management Treatment Minutes: 10 Skilled Treatment Time Minutes (timed and untimed codes): 59 Total Session Time (minutes): 59 Session Start Time : 1721 Session Stop Time : 1819 Shweta Keene PT documented in this encounter [facility] 08-14-2023 Note HNO ID: [id number] Author: SHWETA KEENE, PT Service: ? Author Type: Physical Therapist Type: Progress Notes Filed: 08/14/2023 18:50 Note Text: Episode Visit Count: 1 Therapist That Will Accept/Oversee The Plan Of Care: Shweta Keene Start of Care Date: 08/14/23 Onset Date: (Fall of last year) Patient Identified by Name and Date of : Yes REHABILITATION AND SPORTS THERAPY PHYSICAL THERAPY EVALUATION PLAN OF CARE: Assessment: Ara Gonzalez presents with diagnosis of chronic pain of both knees that interferes with stair negotiation, driving . She presents with impairments in flexibility, overall function, strength, symptom management, and patellofemoral mechanics. Patient did not complete the PROMIS? (Patient Reported Outcome Measures Information System). Prognosis for therapy is Excellent due to: current objective clinical presentation, good overall health status, good support system/ coping skills . She will benefit from skilled therapy services to meet the goals established for this plan of care as noted below. Goals for Episode of Care: created on 08/14/23 through 10/14/23 Pt will demonstrate more normal patellofemoral tracking and mechanics. [place] in home exercise program. Patient will decrease pain rating by 2 points to meet minimal clinical important difference for numeric pain rating scale. Patient will demonstrate increase in B quadricep (VMO focus), hip and core strength to 4+ to 5/5 during manual muscle testing in order to improve function for home management tasks, leisure / recreation skills, and prior functional tasks. Patient will increase flexibility of hamstrings and gastroc/soleus complex to 60-70 deg SLR, and 8-12 degrees DF to improve mechanics and decrease pain. Perform driving (prolonged sitting), and stair negotiation without pain. Reciprocal stair negotiation. Patient Goals: That they would not crunch as much and hopefully then the pain would not happen. Planned Interventions, Frequency, and Duration: Current Frequency: 2x/week Duration: 8 weeks Total Number of Visits Planned: 16 Planned Treatment Interventions: Therapeutic exercise (90220), Neuromuscular re-education (56375), Manual therapy (01084), Self-senior living management (64324), Patient/Family/Caregiver Education PLAN FOR NEXT VISIT: Assess response to and performance of HEP. Review with corrections/modifications as appropriate. May trial stationary bike if does not increase pain. Progress strengthening with VMO focus and hips/core. Patient demonstrates good understanding of plan of care and treatment. The above goals and plan of care were discussed and agreed upon by patient/family. SUBJECTIVE: Pt reports, R knee hurts the worst, but L knee makes the most noise. She states onset, after dancing for 4 hours straight at my brother's wedding this past fall . Overall, feels increasing weakness in legs (and overall) d/t decreased activity since working from home since COVID. History of L kneecap popping out laterally in highschool , but would resolve independently (Denies anyone having to reduce it or any treatment for it.). Better if gets up and moves knee around. Also relieves when pushes kneecap inferiorly with her hand. Patient Goals: That they would not crunch as much and hopefully then the pain would not happen. 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 Plays video games and drawing. Home Environment Home Type: (2 flights of stairs with railing) Intake Information: Prescription present Previous Treatment: None Pain: Pain Pain Level: 0 (up to 5-6/10) Pain Location: Knee - Right, Knee - Left (top of patella ( crescent shape )) Description: Aching, Burning Frequency: Intermittent Post Treatment Pain Post Treatment Pain Level: No Change Post Treatment Symptoms: Pt noting appropriate muscular fatigue at end of session. PROMIS Scales T-scores: mean of general population = 50. 5 points is clinically meaningfully difference Percentiles provide an indication of how the patient's score ranks in relation to the general population. Higher percentile rankings indicate better function/quality of life. 50th percentile is the average of the general population and indicates half of respondents had a worse score. OBJECTIVE MEASURES WITH LEVEL OF FUNCTION: Posture / Alignment LE Observations: low arches (R>L) and laterally sitting patellae in stance Knee Observations R Knee Palpation Tenderness: No tenderness noted L Knee Palpation Tenderness: No tenderness noted LE AROM R Knee Extension: -3 Degrees R Knee Flexion: 130 Degrees R Ankle Dorsiflexion: 4 Degrees L Knee Extension: -5 Degrees L Knee Flexion: 125 Degrees L Ankle Dorsiflexion: 0 De (more content not included)... [facility] 08-08-2023 History of Presen t illness Narrative Radiology Service Progress Note PATIENT NAME: Ara Gonzalez DATE OF SERVICE: August 08, 2023 TIME: 12:06 PM PATIENT IDENTITY VERIFICATION COMPLETED USING TWO (2) IDENTIFIERS: Name and Date of confirmed by patient verbally. FALL SCREENING: Has the patient had 2 falls in the last year or 1 fall with injury or currently using an Ambulatory Assistive Device (Walker, Cane, Wheelchair, Crutches, etc.)? No PATIENT GENDER DATA: Female. status: : No status: NO. PATIENT RELEVANT IMPLANT DATA REVIEWED: Yes PATIENT PRESENTS WITH AN IMPLANTABLE OR ATTACHED TEST BORER: No RADIOLOGY DEPARTMENT: General X-ray: Exam(s) Completed: Lower Extremity X-Ray(s): Knee, AP / Lat / Tunne / Merchant Bilateral and Wt. Bearing PERIPHERAL IV DATA: Not applicable SIGNED BY: JOSEP Gonzalez) August 08, 2023 12:06 PM documented in this encounter [facility] 08-08-2023 Note HNO ID: [id number] Author: OLEG FERNANDEZ RT(R) Service: Radiology Author Type: Technologist Type: Progress Notes Filed: 08/08/2023 12:35 Note Text: Radiology Service Progress Note PATIENT NAME: Ara Gonzalez DATE OF SERVICE: August 08, 2023 TIME: 12:06 PM PATIENT IDENTITY VERIFICATION COMPLETED USING TWO (2) IDENTIFIERS: Name and Date of confirmed by patient verbally. FALL SCREENING: Has the patient had 2 falls in the last year or 1 fall with injury or currently using an Ambulatory Assistive Device (Walker, Cane, Wheelchair, Crutches, etc.)? No PATIENT GENDER DATA: Female. status: : No status: NO. PATIENT RELEVANT IMPLANT DATA REVIEWED: Yes PATIENT PRESENTS WITH AN IMPLANTABLE OR ATTACHED TEST BORER: No RADIOLOGY DEPARTMENT: General X-ray: Exam(s) Completed: Lower Extremity X-Ray(s): Knee, AP / Lat / Tunne / Merchant Bilateral and Wt. Bearing PERIPHERAL IV DATA: Not applicable SIGNED BY: Oleg Fernandez, RT(R) August 08, 2023 12:06 PM [facility] 08-08-2023 Note HNO ID: [id number] Author: ALECIA LIZ APRN.SECURITY AND COMPLIANCE ANALYST Service: ? Author Type: Nurse Practitioner Type: Progress Notes Filed: 08/08/2023 12:44 Note Text: Knee xray08/08/2023 Patient presents with: Knee Pain: Mainly to right knee. Both knees have been popping and cracking SUBJECTIVE: This is a 33 year old that is here today for Above Complaints. ONSET: last fall LOCATION: bilateral knee- right worse than left across top of knee DURATION: intermittent CHARACTERISTICS: dull AGGRAVATING FEATURES: siting in car for long periods, going up and down stairs ALLEVIATING FEATURES: pushing down on knee RADIATION: as above TIMING: Denies past/present injury, redness, warmth or swelling Reports as a child right knee cap would float to side then pop back in. Wore a knee brace- was never seen by physician PAST MEDICAL HISTORY Diagnosis Date Cholelithiasis Known health problems: none ALLERGIES Patient has no known allergies. MEDICATIONS Current Outpatient Medications Medication Sig fexofenadine-pseudoephedrine (CLARENCE D) 60-120 mg per tablet Take 1 tablet by mouth twice daily. Desogestrel-Ethinyl Estradiol 0.15-0.03 mg per tablet Take 1 tablet by mouth once daily. No current facility-administered medications for this visit. Medications and allergies reviewed by this provider. SOCIAL HISTORY Social History Tobacco Use Smoking status: Never Smokeless tobacco: Never Vaping Use Vaping Use: Former Substances: Nicotine, Flavoring Devices: RefDreamitizeble tank Substance Use Topics Alcohol use: Yes Comment: rarely Drug use: Never REVIEW OF SYSTEMS All other reviewed and negative other than HPI. OBJECTIVE: BP 118/80 Pulse 83 Resp 18 Wt 118.5 kg (261 lb 3.2 oz) LMP 03/09/2022 (Exact Date) SpO2 98% BMI 46.27 kg/m? . Vital signs reviewed by this provider. APPEARANCE Well appearing, alert, in no acute distress, well-hydrated, well nourished. KNEES: No obvious deformity, erythema, swelling or excessive warmth. FROM without pain. Mild TTP right medial aspect. Negative anterior/posterior drawer test or Antonio Hepatitis C Screening Never done HIV Screening Never done Hepatitis B Vaccine(1 of 3 - 19+ 3-dose series) Never done Pap Testing Never done DTaP,Tdap,Td Vaccine(1 - Tdap) due on 02/13/2019 HPV Testing Never done Influenza Vaccine(1) due on 01/27/2023 Covid-19 Vaccine( season) due on 01/27/2023 Depression Assessment due on 05/29/2023 HPV Vaccine Aged Out ASSESSMENT/PLAN: 1. Chronic pain of both knees - ICD9: 719.46, 338.29, ICD10: M25.561, M25.562, G89.29 - no red flag symptoms or exam findings - red flag symptoms discussed, verbalizes understanding - recommend OTC oral ad topical pain relievers as directed on packaging. May use ice or heat for 15 minutes at a time - XR KNEE GENERAL 4V AP BOTH/PA BOTH/LAT/MERC BILATERAL - CONSULT TO PHYSICAL THERAPY Alecia Podlogar, FLOUR WORKER.SECURITY AND COMPLIANCE ANALYST Prescription instructions reviewed with patient as applicable. Patient advised if symptoms do not improve or if symptoms worsen sooner, to contact their primary care physician. Potential red flag symptoms discussed with the patient. Reviewed appropriate action plan to take if red flag symptoms occur. Patient agreeable to treatment plan. Medical Decision Making: Problems: Moderate: New problem with uncertain prognosis Risk: Moderate: Moderate risk from testing/treatment Medical Decision Making Level: 4 - Moderate [facility] 08-08-2023 History of Presen t illness Narrative Knee xray08/08/2023 Patient presents with: Knee Pain: Mainly to right knee. Both knees have been popping and cracking SUBJECTIVE: This is a 33 year old that is here today for Above Complaints. ONSET: last fall LOCATION: bilateral knee- right worse than left across top of knee DURATION: intermittent CHARACTERISTICS: dull AGGRAVATING FEATURES: siting in car for long periods, going up and down stairs ALLEVIATING FEATURES: pushing down on knee RADIATION: as above TIMING: Denies past/present injury, redness, warmth or swelling Reports as a child right knee cap would float to side then pop back in. Wore a knee brace- was never seen by physician PAST MEDICAL HISTORY Diagnosis Date Cholelithiasis Known health problems: none ALLERGIES Patient has no known allergies. MEDICATIONS Current Outpatient Medications Medication Sig fexofenadine-pseudoephedrine (CLARENCE D) 60-120 mg per tablet Take 1 tablet by mouth twice daily. Desogestrel-Ethinyl Estradiol 0.15-0.03 mg per tablet Take 1 tablet by mouth once daily. No current facility-administered medications for this visit. Medications and allergies reviewed by this provider. SOCIAL HISTORY Social History Tobacco Use Smoking status: Never Smokeless tobacco: Never Vaping Use Vaping Use: Former Substances: Nicotine, Flavoring Devices: RefDreamitizeble tank Substance Use Topics Alcohol use: Yes Comment: rarely Drug use: Never REVIEW OF SYSTEMS All other reviewed and negative other than HPI. OBJECTIVE: BP 118/80 Pulse 83 Resp 18 Wt 118.5 kg (261 lb 3.2 oz) LMP 03/09/2022 (Exact Date) SpO2 98% BMI 46.27 kg/m . Vital signs reviewed by this provider. APPEARANCE Well appearing, alert, in no acute distress, well-hydrated, well nourished. KNEES: No obvious deformity, erythema, swelling or excessive warmth. FROM without pain. Mild TTP right medial aspect. Negative anterior/posterior drawer test or Antonio Hepatitis C Screening Never done HIV Screening Never done Hepatitis B Vaccine(1 of 3 - 19+ 3-dose series) Never done Pap Testing Never done DTaP,Tdap,Td Vaccine(1 - Tdap) due on 02/13/2019 HPV Testing Never done Influenza Vaccine(1) due on 01/27/2023 Covid-19 Vaccine(2022-24 season) due on 01/27/2023 Depression Assessment due on 05/29/2023 HPV Vaccine Aged Out ASSESSMENT/PLAN: 1. Chronic pain of both knees - ICD9: 719.46, 338.29, ICD10: M25.561, M25.562, G89.29 - no red flag symptoms or exam findings - red flag symptoms discussed, verbalizes understanding - recommend OTC oral ad topical pain relievers as directed on packaging. May use ice or heat for 15 minutes at a time - XR KNEE GENERAL 4V AP BOTH/PA BOTH/LAT/MERC BILATERAL - CONSULT TO PHYSICAL THERAPY Alecia Podlogar, FLOUR WORKER.SECURITY AND COMPLIANCE ANALYST Prescription instructions reviewed with patient as applicable. Patient advised if symptoms do not improve or if symptoms worsen sooner, to contact their primary care physician. Potential red flag symptoms discussed with the patient. Reviewed appropriate action plan to take if red flag symptoms occur. Patient agreeable to treatment plan. Medical Decision Making: Problems: Moderate: New problem with uncertain prognosis Risk: Moderate: Moderate risk from testing/treatment Medical Decision Making Level: 4 - Moderate documented in this encounter [facility] 07-23-2023 Note HNO ID: [id number] Author: TI GAMBLE APRN.PAIGE Service: ? Author Type: Nurse Practitioner Type: Progress Notes Filed: 07/23/2023 10:40 Note Text: CC: Patient presents with: Urinary Problem: burning with urination x 1 day HPI Ara Gonzalez is a 32 year old female who presents with complaint of possible UTI. These symptoms have been present for 1 days. Associated symptoms: burning Denies: fever, chills, sweats, abdominal pain, and flank pain Treatments: nothing The ROS was otherwise negative. PMH, Medications, labs, allergies, and recent past visits with PCP were reviewed and updated as able. PHYSICAL EXAM: BP 124/72 Pulse 96 Temp 36.9 ?C (98.5 ?F) Resp 16 Wt 120.7 kg (266 lb) LMP 03/09/2022 (Exact Date) SpO2 97% BMI 47.12 kg/m? General: Well appearing and alert CV: Regular rate and rhythm without obvious murmur Lungs: clear to auscultation bilaterally Back: straight and symmetric Abdomen: soft, nontender, nondistended PAST MEDICAL HISTORY Diagnosis Date Cholelithiasis Known health problems: none PAST SURGICAL HISTORY Procedure Laterality Date LAPAROSCOPIC CHOLECYSTECTOMY 04/05/2022 TONSILLECTOMY HX ALLERGIES Patient has no known allergies. MEDICATIONS fexofenadine-pseudoephedrine (CLARENCE D) 60-120 mg per tablet Take 1 tablet by mouth twice daily. Desogestrel-Ethinyl Estradiol 0.15-0.03 mg per tablet Take 1 tablet by mouth once daily. FAMILY HISTORY Problem Relation Age of Onset Diabetes Mother Hypertension Father other (heart conditions) Father No Known Problems Brother Diabetes Maternal Grandmother No Known Problems Maternal Grandfather No Known Problems Paternal Grandmother Heart Attack Paternal Grandfather Colon Cancer No Family History Social History Tobacco Use Smoking status: Never Smokeless tobacco: Never Vaping Use Vaping Use: Former Substances: Nicotine, Flavoring Devices: Refillable tank Substance Use Topics Alcohol use: Yes Comment: rarely Drug use: Never ASSESSMENT/PLAN: 1. Burning with urination - ICD9: 788.1, ICD10: R30.0 (primary diagnosis) - UA DIP, URINE (POC) - URINE CULTURE 2. Recurrent UTI (urinary tract infection) - ICD9: 599.0, ICD10: N39.0 - NITROFURANTOIN MONOHYDRATE AND MACROCRYSTAL 100 MG ORAL CAP Culture requires antibiotic be changed please change at that time. Prescription instructions reviewed with patient as applicable. Potential red flag symptoms discussed with the patient. Reviewed appropriate action plan to take if red flag symptoms occur. Patient agreeable to treatment plan. Ti Gamble APRN.[facility] 07-23-2023 History of Presen t illness Narrative CC: Patient presents with: Urinary Problem: burning with urination x 1 day HPI Ara Gonzalez is a 32 year old female who presents with complaint of possible UTI. These symptoms have been present for 1 days. Associated symptoms: burning Denies: fever, chills, sweats, abdominal pain, and flank pain Treatments: nothing The ROS was otherwise negative. PMH, Medications, labs, allergies, and recent past visits with PCP were reviewed and updated as able. PHYSICAL EXAM: BP 124/72 Pulse 96 Temp 36.9 C (98.5 F) Resp 16 Wt 120.7 kg (266 lb) LMP 03/09/2022 (Exact Date) SpO2 97% BMI 47.12 kg/m General: Well appearing and alert CV: Regular rate and rhythm without obvious murmur Lungs: clear to auscultation bilaterally Back: straight and symmetric Abdomen: soft, nontender, nondistended PAST MEDICAL HISTORY Diagnosis Date Cholelithiasis Known health problems: none PAST SURGICAL HISTORY Procedure Laterality Date LAPAROSCOPIC CHOLECYSTECTOMY 04/05/2022 TONSILLECTOMY HX ALLERGIES Patient has no known allergies. MEDICATIONS fexofenadine-pseudoephedrine (CLARENCE D) 60-120 mg per tablet Take 1 tablet by mouth twice daily. Desogestrel-Ethinyl Estradiol 0.15-0.03 mg per tablet Take 1 tablet by mouth once daily. FAMILY HISTORY Problem Relation Age of Onset Diabetes Mother Hypertension Father other (heart conditions) Father No Known Problems Brother Diabetes Maternal Grandmother No Known Problems Maternal Grandfather No Known Problems Paternal Grandmother Heart Attack Paternal Grandfather Colon Cancer No Family History Social History Tobacco Use Smoking status: Never Smokeless tobacco: Never Vaping Use Vaping Use: Former Substances: Nicotine, Flavoring Devices: Refillable tank Substance Use Topics Alcohol use: Yes Comment: rarely Drug use: Never ASSESSMENT/PLAN: 1. Burning with urination - ICD9: 788.1, ICD10: R30.0 (primary diagnosis) - UA DIP, URINE (POC) - URINE CULTURE 2. Recurrent UTI (urinary tract infection) - ICD9: 599.0, ICD10: N39.0 - NITROFURANTOIN MONOHYDRATE & MACROCRYSTAL 100 MG ORAL CAP Culture requires antibiotic be changed please change at that time. Prescription instructions reviewed with patient as applicable. Potential red flag symptoms discussed with the patient. Reviewed appropriate action plan to take if red flag symptoms occur. Patient agreeable to treatment plan. Ti Gamble APRN.SECURITY AND COMPLIANCE ANALYST documented in this encounter [facility] 04-06-2023 Note HNO ID: [id number] Author: Fallon Prakash PA-C Service: ? Author Type: Physician Technical Lead Type: Progress Notes Filed: 04/06/2023 10:02 AM Note Text: This note was created using [employer]. Subjective Ara Gonzalez is a 32 year old female. HPI Patient presents with urinary frequency, dysuria over the past 2 days. No blood in urine. No abdominal pain or back pain. No fever. She is sexually active. Denies chance of . Last menstrual cycle was a week ago and normal for her. No diarrhea or vomiting. No vaginal itching or discharge. Review of Systems Constitutional: Negative. HENT: Negative. Respiratory: Negative. Cardiovascular: Negative. Gastrointestinal: Negative. Genitourinary: Positive for dysuria and frequency. Negative for hematuria, pelvic pain, vaginal bleeding, vaginal discharge and vaginal pain. Musculoskeletal: Negative for back pain. All other systems reviewed and are negative. PAST MEDICAL HISTORY Diagnosis Date Cholelithiasis Known health problems: none Current Outpatient Medications Medication Sig Dispense Refill fexofenadine-pseudoephedrine (CLARENCE D) 60-120 mg per tablet Take 1 tablet by mouth twice daily. Desogestrel-Ethinyl Estradiol 0.15-0.03 mg per tablet Take 1 tablet by mouth once daily. nitrofurantoin monohydrate and macrocrystal (MACROBID) 100 mg capsule Take 1 capsule by mouth two times a day with meals for 5 days. 10 capsule 0 No current facility-administered medications for this visit. PAST SURGICAL HISTORY Procedure Laterality Date LAPAROSCOPIC CHOLECYSTECTOMY 04/05/2022 TONSILLECTOMY HX FAMILY HISTORY Problem Relation Age of Onset Diabetes Mother Hypertension Father other (heart conditions) Father No Known Problems Brother Diabetes Maternal Grandmother No Known Problems Maternal Grandfather No Known Problems Paternal Grandmother Heart Attack Paternal Grandfather Colon Cancer No Family History Social History Tobacco Use Smoking status: Never Smokeless tobacco: Never Vaping Use Vaping Use: Former Substances: Nicotine, Flavoring Devices: [place] Substance Use Topics Alcohol use: Yes Comment: rarely Drug use: Never Objective BP 118/72 Pulse 89 Temp 36.8 ?C (98.2 ?F) Resp 16 Wt 120 kg (264 lb 9.6 oz) LMP 03/09/2022 (Exact Date) SpO2 98% BMI 46.87 kg/m? Physical Exam Vitals reviewed. Constitutional: Appearance: Normal appearance. HENT: Head: Normocephalic and atraumatic. Cardiovascular: Rate and Rhythm: Normal rate and regular rhythm. Heart sounds: Normal heart sounds. Pulmonary: Effort: Pulmonary effort is normal. Breath sounds: Normal breath sounds. Abdominal: General: Abdomen is flat. There is no distension. Palpations: Abdomen is soft. Tenderness: There is no abdominal tenderness. There is no right CVA tenderness, left CVA tenderness or guarding. Musculoskeletal: Cervical back: Neck supple. Skin: General: Skin is warm and dry. Findings: No rash. Neurological: Mental Status: She is alert. Assessment and Plan ASSESSMENT/PLAN: 1. Acute UTI - ICD9: 599.0, ICD10: N39.0 acute - UA positive for jacquie esterase, hematuria, and proteinuria - Send urine for culture - Begin treatment with Macrobid 100 mg BID for 5 days - UA DIP, URINE (POC) - URINE CULTURE Fallon Prakash PA-C [facility] 04-06-2023 History of Presen t illness Narrative This note was created using [employer]. Subjective Ara Gonzalez is a 32 year old female. HPI Patient presents with urinary frequency, dysuria over the past 2 days. No blood in urine. No abdominal pain or back pain. No fever. She is sexually active. Denies chance of . Last menstrual cycle was a week ago and normal for her. No diarrhea or vomiting. No vaginal itching or discharge. Review of Systems Constitutional: Negative. HENT: Negative. Respiratory: Negative. Cardiovascular: Negative. Gastrointestinal: Negative. Genitourinary: Positive for dysuria and frequency. Negative for hematuria, pelvic pain, vaginal bleeding, vaginal discharge and vaginal pain. Musculoskeletal: Negative for back pain. All other systems reviewed and are negative. PAST MEDICAL HISTORY Diagnosis Date Cholelithiasis Known health problems: none Current Outpatient Medications Medication Sig Dispense Refill fexofenadine-pseudoephedrine (CLARENCE D) 60-120 mg per tablet Take 1 tablet by mouth twice daily. Desogestrel-Ethinyl Estradiol 0.15-0.03 mg per tablet Take 1 tablet by mouth once daily. nitrofurantoin monohydrate and macrocrystal (MACROBID) 100 mg capsule Take 1 capsule by mouth two times a day with meals for 5 days. 10 capsule 0 No current facility-administered medications for this visit. PAST SURGICAL HISTORY Procedure Laterality Date LAPAROSCOPIC CHOLECYSTECTOMY 04/05/2022 TONSILLECTOMY HX FAMILY HISTORY Problem Relation Age of Onset Diabetes Mother Hypertension Father other (heart conditions) Father No Known Problems Brother Diabetes Maternal Grandmother No Known Problems Maternal Grandfather No Known Problems Paternal Grandmother Heart Attack Paternal Grandfather Colon Cancer No Family History Social History Tobacco Use Smoking status: Never Smokeless tobacco: Never Vaping Use Vaping Use: Former Substances: Nicotine, Flavoring Devices: Refillable tank Substance Use Topics Alcohol use: Yes Comment: rarely Drug use: Never Objective BP 118/72 Pulse 89 Temp 36.8 C (98.2 F) Resp 16 Wt 120 kg (264 lb 9.6 oz) LMP 03/09/2022 (Exact Date) SpO2 98% BMI 46.87 kg/m Physical Exam Vitals reviewed. Constitutional: Appearance: Normal appearance. HENT: Head: Normocephalic and atraumatic. Cardiovascular: Rate and Rhythm: Normal rate and regular rhythm. Heart sounds: Normal heart sounds. Pulmonary: Effort: Pulmonary effort is normal. Breath sounds: Normal breath sounds. Abdominal: General: Abdomen is flat. There is no distension. Palpations: Abdomen is soft. Tenderness: There is no abdominal tenderness. There is no right CVA tenderness, left CVA tenderness or guarding. Musculoskeletal: Cervical back: Neck supple. Skin: General: Skin is warm and dry. Findings: No rash. Neurological: Mental Status: She is alert. Assessment and Plan ASSESSMENT/PLAN: 1. Acute UTI - ICD9: 599.0, ICD10: N39.0 acute - UA positive for jacqiue esterase, hematuria, and proteinuria - Send urine for culture - Begin treatment with Macrobid 100 mg BID for 5 days - UA DIP, URINE (POC) - URINE CULTURE Fallon Prakash PA-C documented in this encounter [facility] 12-05-2022 History of Presen t illness Narrative 12/05/2022 Patient presents with: Swelling: Left leg, has since went down but comes and goes Additional Labs: Would like to have routine labs ordered, concerned about diabetes Physical SUBJECTIVE: This is a 32 year old that is here today for Above Complaints. Not exercising, trying to cut back on portion sizes. Reports left foot swells occasionally has been ongling for a few years. Notices if she drinks pepsi it will swell more. Denies past/present injury or surgery, leg swelling, redness or pain PAST MEDICAL HISTORY Diagnosis Date Cholelithiasis Known health problems: none ALLERGIES Patient has no known allergies. MEDICATIONS Current Outpatient Medications Medication Sig Desogestrel-Ethinyl Estradiol 0.15-0.03 mg per tablet Take 1 tablet by mouth once daily. No current facility-administered medications for this visit. Medications and allergies reviewed by this provider. SOCIAL HISTORY Social History Tobacco Use Smoking status: Never Smokeless tobacco: Never Vaping Use Vaping Use: Former Substances: Nicotine, Flavoring Devices: [employer] Companion tank Substance Use Topics Alcohol use: Yes Comment: rarely Drug use: Never REVIEW OF SYSTEMS GENERAL: No weight loss, malaise or fevers HEENT: Negative for frequent or significant headaches, No changes in hearing or vision, no nose bleeds or other nasal problems NECK: Negative for lumps, goiter, pain and significant neck swelling RESPIRATORY: Negative for cough, hemoptysis, COPD, dyspnea or shortness of breath. Occasional wheezing CARDIOVASCULAR: Negative for chest pain, leg swelling, hypertension, CHF or palpitations GI: No nausea, vomiting, or diarrhea and occasional diarrhea : No history of dysuria, frequency or incontinence KENO DEALER: Negative for abnormal vaginal bleeding, abnormal vaginal discharge MUSCULOSKELETAL: Negative for joint pain or swelling, back pain or muscle pain SKIN: Negative for lesions, rash, and itching PSYCH: Negative for sleep disturbance, mood disorder and recent psychosocial stressors HEMATOLOGY/LYMPHOLOGY: Negative for prolonged bleeding, bruising easily or swollen nodes ENDOCRINE: Negative for cold or heat intolerance, polyuria, polydipsia and goiter NEURO: No history of headaches, syncope, paralysis, seizures or tremors All other reviewed and negative other than HPI. OBJECTIVE: BP 128/76 Pulse 95 Resp 18 Wt 117.2 kg (258 lb 6.4 oz) LMP 03/09/2022 (Exact Date) SpO2 94% BMI 45.77 kg/m . Vital signs reviewed by this provider. APPEARANCE Well appearing, alert, in no acute distress, well-hydrated, well nourished. EYES conjunctiva and sclera normal. EARS External ears normal, canals clear NECK Supple, no adenopathy; thyroid symmetric, normal size, no bruits HEART RRR with normal S1 and S2, no murmurs, no gallops, no JVD appreciated LUNG clear to auscultation. No wheezes, rhonchi or rales ABDOMEN no tenderness to palpation EXTREMITIES Extremities normal, No deformities, No skin discoloration, and No edema SKIN Skin color, texture, turgor normal, no suspicious rashes or lesions to exposed skin HEPATITIS B(1 of 3 - 3-dose series) Never done HEPATITIS C SCREENING Never done HIV SCREENING Never done DTAP,TDAP,TD(1 - Tdap) due on 02/13/2019 HPV TESTING Never done DEPRESSION ASSESSMENT Never done INFLUENZA(1) due on 01/27/2023 COVID-19 VACCINE Completed HPV VACCINE Aged Out ASSESSMENT/PLAN: 1. Annual physical exam - ICD9: V70.0, ICD10: Z00.00 (primary diagnosis) - Counseled on healthy diet and regular exercise - Calcium intake with supplements or by diet of 1000 mg/day for under 50, 2029-7525 mg/day for 50+ - Discussed need and benefit for weight loss. BMI 45.77 kg/(m^2) - Depression screening tool completed and reviewed with patient. Based on score and interview, patient is not at risk for depression and recommended no further intervention at this time. - Follow up for annual exam in one year - COMP METABOLIC PANEL - LIPID PANEL BASIC - HGB A1C - CBC 2. Obesity, Class III, BMI >= 40 - ICD9: 278.01, ICD10: E66.01 Stable - Behavioral intervention - COMP METABOLIC PANEL - LIPID PANEL BASIC - HGB A1C - TSH BLD - CB- Lengthy discussion in office today regarding diet and exercise. Discussed use of small plate to eat meals from, drink 1 glass of water 10-15 minutes prior to eating meal, drink 8 glasses of water daily, eat fresh fruit and vegetable during meal first then lean protein such as grilled/baked chicken breast or fish, limit carbohydrate intake (less pasta, breads, rice and snack foods) as well as limiting sugars (desserts etc). Important to count / track your calories and exercise as well. C 3. Swelling of left foot - ICD9: 729.81, ICD10: M79.89 - no swelling on exam today - no red flag symptoms or exam findings - red flag symptoms discussed, verbalizes understanding - recommend low salt diet - may wear compression hose and elevate when sitting - follow-up as needed, to ER with red flag symptoms Alecia Liz APRN.[facility] Prescription instructions reviewed with patient as applicable. Patient advised if symptoms do not improve or if symptoms worsen sooner, to contact their primary care physician. Potential red flag symptoms discussed with the patient. Reviewed appropriate action plan to take if red flag symptoms occur. Patient agreeable to treatment plan. documented in this encounter [facility] 04-12-2022 Miscellaneous Notes Called patient, updated allowed to take shower. Patient voiced understanding. Patient is calling asking if she is able to shower. Please advise the patient. documented in this encounter [facility] 04-11-2022 History of Presen t illness Narrative FOLLOW UP VISIT NAME: Ara Gonzalez CLINIC NO.: [id number] DATE OF SERVICE: 04/11/2022 : 1990 REFERRING PHYSICIAN: Alecia Liz APRN.[facility] Ara is status post laparoscopic cholecystectomy at [facility] on 04/05/2022. Pathology reveals cholesterolosis, chronic cholecystitis and cholelithiasis VITALS: Blood pressure 120/64, pulse 111, temperature 36.4 C (97.5 F), weight 115.3 kg (254 lb 3.2 oz), last menstrual period 03/09/2022, SpO2 100 %. On examination, abdomen is soft and benign. Wounds are healing well, without evidence of infection Assessment IMPRESSION: status post laparoscopic cholecystectomy PLAN: If the patient notes any problems or signs of infection/abnormalities, the patient should return to clinic. Follow up as per needed. Patient to return to her PCP for medical care. Diagnoses: (Z90.49) Status post laparoscopic cholecystectomy (primary encounter diagnosis) Return to Clinic: The patient is instructed to follow-up with as above. Lulu Gee MD documented in this encounter [facility] 03-14-2022 History of Presen t illness Narrative HISTORY AND PHYSICAL Ara Gonzalez 1990 REFERRING PHYSICIAN: Anjana Saavedra APRN.SECURITY AND COMPLIANCE ANALYST CHIEF COMPLAINT: Consult HPI: The patient is a 31 year old female presents with RUQ abdominal pain. She has noted this for about a year. She notes an intermittent severe ache with occasional sharp pain that starts from the right flank and extends posteriorly and anteriorly. This usually occurs after eating a greasy meal. She notes these attack intermittently but they have become more severe and painful. She denies icterus or jaundice. Her mother had gallbladder disease. US RUQ abdomen 01/27/2022 Gallstone and gallbladder sludge. Common duct is normal in caliber. PAST MEDICAL HISTORY Diagnosis Date Morbid obesity PAST SURGICAL HISTORY Procedure Laterality Date TONSILLECTOMY HX Current Outpatient Medications Medication Sig Desogestrel-Ethinyl Estradiol 0.15-0.03 mg per tablet Take 1 tablet by mouth once daily. ALLERGIES: Patient has no known allergies. PERSONAL HISTORY: Social History Tobacco Use Smoking status: Never Smokeless tobacco: Never Vaping Use Vaping Use: Former Substances: Nicotine, Flavoring Devices: Ref[employer]ble tank Substance Use Topics Alcohol use: Yes Comment: rarely Drug use: Never FAMILY HISTORY Problem Relation Age of Onset Diabetes Mother Hypertension Father other (heart conditions) Father No Known Problems Brother Diabetes Maternal Grandmother No Known Problems Maternal Grandfather No Known Problems Paternal Grandmother Heart Attack Paternal Grandfather Colon Cancer No Family History The review of systems data was entered by the nurse and reviewed by ri Nursing Notes: Brigitte Perry LPN 03/14/2022 9:23 AM Signed REVIEW OF SYSTEMS: General: The patient NOTES fatigue, denies weight loss, denies weight gain, denies feeling hot, and denies feelings of cold. Eyes: The patient denies glaucoma, denies eye injury/surgery, wears glasses. Ear/Nose/Throat: The patient NOTES allergies, denies hayfever, denies ear infections, and denies bloody noses. Cardiovascular: The patient denies chest pain, denies heart disease, denies high blood pressure,denies cardiac stent, denies prior heart attack, denies irregular heart beat, denies high cholesterol, denies poor circulation, denies heart failure, NOTES other cardiac issues, denies claudication, denies cold feet, denies peripheral arterial stent. Respiratory: The patient denies tuberculosis, denies pneumonia, denies frequent cough, denies pulmonary embolism, NOTES shortness of breath, and denies coughing up blood. Gastrointestinal: The patient denies difficulty swallowing, NOTES acid reflux, denies ulcers, denies vomiting, denies jaundice/hepatitis, NOTES gallbladder problems, denies black or tarry stools, denies hemorrhoids, denies bleeding from rectum, denies diverticulitis, NOTES constipation, denies diarrhea, denies loss of stool control, and denies hernias. Kidney/Bladder: The patient denies kidney stones, denies urine infections, and denies bloody urine. Skin: The patient denies a history of skin cancer, denies bleeding/changing moles, and denies a history of skin rash. Neurologic: The patient denies a history of epilepsy/convulsions, NOTES headaches, denies head/spinal injuries, and denies stroke/TIA. Psychiatric: The patient denies psychiatric medications, denies depression, and denies voices, denies substance abuse. Endocrine: The patient denies thyroid disorders, denies diabetes, and NOTES hormonal problems. Hematologic: The patient denies a history of bruising, denies bleeding, and denies anemia, denies blood clots. Infections: The patient denies a history of measles and mumps, denies rheumatic fever, and denies sexually transmitted diseases. Musculoskeletal: The patient denies back pain/injury, denies back problems, denies sciatica, denies knee/foot trouble, denies arthritis, or denies gout. When was patient's last Mammogram screening? N/A Last Colonoscopy: [facility] PHYSICAL EXAMINATION: General: The patient is 31 year old female, well nourished, well hydrated in no acute distress. The patient is oriented to time, place, and person. VITALS: Blood pressure 130/86, pulse 98, temperature 36.5 C (97.7 F), temperature source Temporal, resp. rate 14, height 160 cm (5' 3 ), weight 115.7 kg (255 lb), last menstrual period 03/09/2022, SpO2 97 %. Body mass index is 45.17 kg/m . Head - Normocephalic. EOM intact with sclera clear and no icterus noted. Wearing glasses. Neck - supple with no jugular venous distention noted. Trachea is midline. Lungs - clear to auscultation. Normal breath sounds. No rales/rhonchi/wheezing noted. No labored breathing noted, such as retractions. No cough heard. Heart - normal S1 and S2 auscultated. No rubs/clicks/murmurs noted. Regular rate. Abdomen - soft and benign. Difficult to determine if any masses or organomegaly due to body habitus. Extremities - no calf tenderness noted. No pitting edema noted. Skin - normal skin integrity. Neurological - gait normal, no focal deficits noted. Psych - calm and appropriate RADIOLOGIC STUDIES: As Noted Assessment IMPRESSION: RUQ abdominal pain, cholelithiasis PLAN: I have discussed the above with the patient. I have offered laparoscopic cholecystectomy, possible cholangiograms. I have explained the procedure to the patient. I have counseled the patient as to the risks of the procedure, including but not limited to: infection, bleeding, injury to any blood vessels/nerves, scar tissue, injury to any intrabdominal organs, injury to bowel/bladder, injury to the common bile duct/biliary tree, bile leakage, intraabdominal abscess/bleeding, hernias at incisional sites, wound infections, complications of anesthesia, etc. - the patient understands. The patient wishes to proceed. I have answered all questions to the patient s satisfaction and the patient has no further questions. I have confirmed and edited as necessary, the PFSH and ROS obtained by others. Consultation requested by Anjana Saavedra for an opinion regarding patient's RUQ abdominal pain. My final recommendations will be communicated back to the requesting physician by way of shared Medical record or letter to requesting physician via US mail. . Diagnoses: (R10.11) RUQ abdominal pain (primary encounter diagnosis) (K80.20) Calculus of gallbladder without cholecystitis without obstruction (E66.01) Morbid obesity (HCC) Return to Clinic: The patient will be scheduled for laparoscopic cholecystectomy, possible cholangiograms. Medical Decision Making: Problems: Low: Stable chronic illness and Acute, uncomplicated illness or injury Data: Unique test result(s) reviewed: 1 Risk: High: Decision on elective major surgery w/ risk factors Medical Decision Making Level: 3 - Low Lulu Gee MD documented in this encounter [facility] 03-14-2022 Nurse Note REVIEW OF SYSTEMS: General: The patient NOTES fatigue, denies weight loss, denies weight gain, denies feeling hot, and denies feelings of cold. Eyes: The patient denies glaucoma, denies eye injury/surgery, wears glasses. Ear/Nose/Throat: The patient NOTES allergies, denies hayfever, denies ear infections, and denies bloody noses. Cardiovascular: The patient denies chest pain, denies heart disease, denies high blood pressure,denies cardiac stent, denies prior heart attack, denies irregular heart beat, denies high cholesterol, denies poor circulation, denies heart failure, NOTES other cardiac issues, denies claudication, denies cold feet, denies peripheral arterial stent. Respiratory: The patient denies tuberculosis, denies pneumonia, denies frequent cough, denies pulmonary embolism, NOTES shortness of breath, and denies coughing up blood. Gastrointestinal: The patient denies difficulty swallowing, NOTES acid reflux, denies ulcers, denies vomiting, denies jaundice/hepatitis, NOTES gallbladder problems, denies black or tarry stools, denies hemorrhoids, denies bleeding from rectum, denies diverticulitis, NOTES constipation, denies diarrhea, denies loss of stool control, and denies hernias. Kidney/Bladder: The patient denies kidney stones, denies urine infections, and denies bloody urine. Skin: The patient denies a history of skin cancer, denies bleeding/changing moles, and denies a history of skin rash. Neurologic: The patient denies a history of epilepsy/convulsions, NOTES headaches, denies head/spinal injuries, and denies stroke/TIA. Psychiatric: The patient denies psychiatric medications, denies depression, and denies voices, denies substance abuse. Endocrine: The patient denies thyroid disorders, denies diabetes, and NOTES hormonal problems. Hematologic: The patient denies a history of bruising, denies bleeding, and denies anemia, denies blood clots. Infections: The patient denies a history of measles and mumps, denies rheumatic fever, and denies sexually transmitted diseases. Musculoskeletal: The patient denies back pain/injury, denies back problems, denies sciatica, denies knee/foot trouble, denies arthritis, or denies gout. When was patient's last Mammogram screening? N/A Last Colonoscopy: None Brigitte Perry LPN documented in this encounter [facility] 03-07-2022 Miscellaneous Notes Called patient and discussed normal HIDA. She reports usually after greasy meal in the evening time around 2 am till 7am she will develop RUQ pain. Discussed first doing EGD if normal will refer to general surgery. documented in this encounter [facility] 03-04-2022 History of Presen t illness Narrative RADIOLOGY SERVICE PROGRESS NOTE SERVICE DATE: 03/04/2022 SERVICE TIME: 11:03 AM PATIENT IDENTITY VERIFICATION COMPLETED USING TWO (2) STANDARD IDENTIFIERS: Name and Date of confirmed by patient verbally FALL SCREENING: Has the patient had 2 falls in the last year or 1 fall with injury or currently using an Ambulatory Assistive Device (Walker, Cane, Wheelchair, Crutches, etc.)? No PATIENT GENDER DATA: .female : No status: No ALLERGIES: Reviewed and unchanged MEDICATIONS REVIEWED: No PATIENT RELEVANT IMPLANT DATA REVIEWED: Not Applicable CREATININE: Creatinine Date Value Ref Range Status 01/27/2022 0.72 0.58 - 0.96 mg/dL Final 01/09/2019 0.62 0.58 - 0.96 mg/dL Final Estimated Glomerular Filtration Rate Date Value Ref Range Status 01/27/2022 115 >=60 mL/min/1.73m Final Comment: Estimated Glomerular Filtration Rate (eGFR) is calculated using the 2020 CKD-EPI creatinine equation. This equation utilizes serum creatinine, sex, and age as parameters. The creatinine assay has traceable calibration to isotope dilution-mass spectrometry. Refer to KDIGO guidelines for clinical interpretation. In patients with unstable renal function, e.g. those with acute kidney injury, the eGFR may not accurately reflect actual GFR. eGFR- Date Value Ref Range Status 01/09/2019 >60 Final P.O.C.T. RESULTS: N/A March 04, [address] PERFORMED: No IV SITE: Ambulatory: A peripheral IV was started in the Left antecubital site with a Angio cath: 24 gauge. POST EXAM PIV STATUS: Discontinued PROCEDURE TYPE: NM INJECT: Hepatobiliary with Gallbladder EF. 5.1 mCi Tc99m CHOLETEC. CCK 2.33 micrograms intravenous at 10:25. ADMINISTRATION TIME: 09:15 PATIENT DISCHARGED TO: Ambulatory patient, left AL department area. A Diagnostic radioactive procedure has taken place, with no further precautions necessary other than routine body substance precautions. More information regarding radiation safety can be found using this link: [email or web address] SIGNATURE: BLANCA Marmolejo PATIENT NAME: Ara Gonzalez DATE: March 04, 2022 TIME: 11:03 AM PAGER/CONTACT #: documented in this encounter [facility] 02-17-2022 History of Presen t illness Narrative Radiology Service Progress Note DATE OF SERVICE: February 17, 2022 TIME: 9:50 AM PATIENT IDENTITY VERIFICATION COMPLETED USING TWO (2) STANDARD IDENTIFIERS: Name and Date of confirmed by patient verbally. FALL SCREENING: Has the patient had 2 falls in the last year or 1 fall with injury or currently using an Ambulatory Assistive Device (Walker, Cane, Wheelchair, Crutches, etc.)? No PATIENT GENDER DATA: Female. status: : No status: NO. PATIENT RELEVANT IMPLANT DATA REVIEWED: Yes ALLERGIES: Reviewed and unchanged CONTRAST ALLERGY: NO. EXAM: MRI - CONTRAST TYPE: GROUP II PERIPHERAL IV DATA: Ambulatory: A peripheral IV was started in the Left antecubital site with a Angio cath: 22 gauge. RADIOLOGY DEPARTMENT: MR; Exam(s) Completed: Body: Liver (routine) SIGNATURE: RT Tiff(Ginger) PATIENT NAME: Ara Gonzalez DATE: February 17, 2022 TIME: 9:50 AM documented in this encounter [facility] 02-01-2022 Miscellaneous Notes She knows you want the liver mri but what about her gallbladder stone and Sludge? Shouldn't she be doing something about that? Thanks Kat documented in this encounter [facility] 01-28-2022 Miscellaneous Notes Called patient and left voice mail for US results - findings of a liver lesion likely a hemangioma however will need to get a MRI of the liver to get a closer look. Thanks Anjana Saavedra APRN.CNP documented in this encounter [facility] 01-27-2022 History of Presen t illness Narrative Radiology Service Progress Note PATIENT NAME: Ara Gonzalez DATE OF SERVICE: January 27, 2022 TIME: 11:04 AM PATIENT IDENTITY VERIFICATION COMPLETED USING TWO (2) IDENTIFIERS: Name and Date of confirmed by patient verbally. FALL SCREENING: Has the patient had 2 falls in the last year or 1 fall with injury or currently using an Ambulatory Assistive Device (Walker, Cane, Wheelchair, Crutches, etc.)? No PATIENT GENDER DATA: Female. status: : No status: NO. PATIENT RELEVANT IMPLANT DATA REVIEWED: Not Applicable RADIOLOGY DEPARTMENT: Ultrasound PERIPHERAL IV DATA: Not applicable SIGNED BY: RT Eli(R) January 27, 2022 11:04 AM documented in this encounter [facility] 11-09-2021 Miscellaneous Notes Pt called in and reports she was supposed to decreased from 40 mg of Protonix down to 20 mg, but with it being the extended relase tablet she can't split the 40 mgs she has to make 20 mg. Pt asking for new prescription be sent in for her. Patient has been identified by name and date of : Yes Patient phones for refill(s): Pending Prescriptions Disp Refills PANTOPRAZOLE 20 MG TABLET,DELAYED RELEASE Sig: Take 1 tablet by mouth daily before breakfast. Take on empty stomach, 1/2 hr before meal. Date of last office visit in primary care: 07/05/21 Future visit: none Last 2 Encounter Wt Readings: Date: Wt: 07/05/2021 117.5 kg (259 lb) 05/14/2021 118.8 kg (261 lb 12.8 oz) Previous labs/tests for medication: Liver Function: ALT (U/L) Date Value 01/09/2019 39 AST (U/L) Date Value 01/09/2019 26 Please advise. Thank you. Britany Palomino RN documented in this encounter [facility] Evaluation note Diagnosis RUQ pain Abdominal pain, right upper quadrant [facility] Diagnosis RUQ pain- Primary Abdominal pain, right upper quadrant Calculus of gallbladder without cholecystitis without obstruction Calculus of gallbladder without mention of cholecystitis or obstruction Nausea Nausea alone [facility] Diagnosis Liver lesion- Primary Other specified disorders of liver [facility] Liver lesion Other specified disorders of liver [facility] Diagnosis Calculus of gallbladder without cholecystitis without obstruction Calculus of gallbladder without mention of cholecystitis or obstruction Nausea Nausea alone [facility] Diagnosis RUQ pain- Primary Abdominal pain, right upper quadrant Nausea Nausea alone [facility] Diagnosis RUQ abdominal pain- Primary Abdominal pain, right upper quadrant Calculus of gallbladder without cholecystitis without obstruction Calculus of gallbladder without mention of cholecystitis or obstruction Morbid obesity (HCC) Morbid obesity [facility]* Diagnosis Status post laparoscopic cholecystectomy- Primary Other postprocedural status [facility]* Diagnosis Annual physical exam- Primary Routine general medical examination at a health care facility Obesity, Class III, BMI >= 40 Morbid obesity Swelling of left foot [facility] Diagnosis Acute UTI- Primary Urinary tract infection, site not specified [facility] Diagnosis Burning with urination- Primary Dysuria Recurrent UTI (urinary tract infection) Urinary tract infection, site not specified [facility] Diagnosis Chronic pain of both knees- Primary [facility] [place] [facility] Diagnosis Chronic pain of both knees- Primary documented in this encounter [facility] note* Diagnosis Chronic pain of both knees- Primary documented in this encounter [facility] note* Diagnosis Chronic pain of both knees- Primary documented in this encounter [facility] note* Diagnosis Pain and swelling of left lower leg- Primary documented in this encounter [facility] note* Diagnosis Subluxation of patellofemoral joint, unspecified laterality, initial encounter documented in this encounter [facility] note* Diagnosis Irritable bowel syndrome with constipation and diarrhea- Primary Irritable bowel syndrome Internal hemorrhoids Internal hemorrhoids without mention of complication Attention deficit hyperactivity disorder (ADHD) evaluation documented in this encounter [facility] note* Diagnosis Chronic pain of both knees documented in this encounter [facility] for referral (narrative)* Diagnostic Procedure Only (Routine) - Closed Specialty Diagnoses / Procedures Referred By Palmer vargas Referred To Contact US IMAGING Diagnoses RUQ pain Procedures US ABD RT UPPER QUADRANT US ABDOMINAL REAL TIME W/IMAGE LIMITED Anjana Saavedra APRN.SECURITY AND COMPLIANCE ANALYST [address] [place] [address] Us Imaging Referral ID Status Reason Start Date Expiration Date V isits Requested Visits Authorized [id number] Closed Auto-Generate d Referral 01/25/2022 02/24/2023 1 1 [facility] for referral (narrative)* Diagnostic Procedure Only (Routine) - Pending Review Specialty Diagnoses / Procedures Referred By Palmer vargas Referred To Contact MOLECULAR & FUNCTIONAL IMAGING Diagnoses Calculus of gallbladder without cholecystitis without obstruction Nausea Procedures NM HEPATOBILIARY W EF AND/OR RX HEPATOBIL SYST IMAG INC GB W/PHARMA INTERVENJ Anjana Saavedra APRN.SECURITY AND COMPLIANCE ANALYST [address] [place] [address] Molecular & Functional Imaging [address] [place], [place] [id number] Referral ID Status Reason Start Date Expiration Date Visits Requested Visits Authorized [id number] Pending Review Auto-Generat ed Referral 02/01/2022 03/03/2023 1 1 [facility] for referral (narrative)* Diagnostic Procedure Only (Routine) - Closed Specialty Diagnoses / Procedures Referred By Contac t Referred To Contact MOLECULAR & FUNCTIONAL IMAGING Diagnoses Calculus of gallbladder without cholecystitis without obstruction Nausea Procedures NM HEPATOBILIARY W EF AND/OR RX HEPATOBIL SYST IMAG INC GB W/PHARMA INTERVENJ Anjana Saavedra APRN.SECURITY AND COMPLIANCE ANALYST [address] [place] [address] Molecular & Functional Imaging [address] [id number] Referral ID Status Reason Start Date Expiration Date V isits Requested Visits Authorized [id number] Closed Auto-Generate d Referral 02/15/2022 05/28/2022 1 1 [facility] for referral (narrative)* Outpatient Procedure (Routine) - Pending Review Specialty Diagnoses / Procedures Referred By Contac t Referred To Contact [facility] Diagnoses RUQ pain Nausea Procedures EGD DIAGNOSTIC ESOPHAGOGASTRODUODENOS COPY TRANSORAL DIAGNOSTIC Anjana Saavedra APRN.SECURITY AND COMPLIANCE ANALYST [address] [facility] [place] [place] [address] [facility] [address] [place] [address] Referral ID Status Reason Start Date Expiration Date Visits Requested Visits Authorized [id number] Pending Review Auto-Generat ed Referral 2 03/07/2023 1 1 [facility] for referral (narrative)* Outpatient Procedure (Routine) - Closed Specialty Diagnoses / Procedures Referred By Contac t Referred To Contact [facility] Diagnoses Pain and swelling of left lower leg Procedures US LEG VEIN DVT UNL VAS LAB DUP-SCAN XTR VEINS UNILATERAL/LIMITED STUDY Emily Neumann APRN.SECURITY AND COMPLIANCE ANALYST [address] [place] [address] [facility] [address] [place] [address] Referral ID Status Reason Start Date Expiration Date V isits Requested Visits Authorized [id number] Closed Auto-Generate d Referral 09/22/2023 09/22/2023 1 1 [facility] for referral (narrative)* Diagnostic Procedure Only (Routine) - Closed Specialty Diagnoses / Procedures Referred By Contac t Referred To Contact XR IMAGING Diagnoses Chronic pain of both knees Procedures XR KNEE GENERAL 4V AP BOTH/PA BOTH/LAT/MERC BILATERAL RADIOLOGIC EXAM KNEE COMPLETE 4/MORE VIEWS PodlogarAlecia APRN.SECURITY AND COMPLIANCE ANALYST [address] [place] [address] [place] [id number] Referral ID Status Reason Start Date Expiration Date V isits Requested Visits Authorized [id number] Closed Auto-Generate d Referral 08/08/2023 09/06/2024 1 1 [facility] for visit Narrative* Diagnostic Procedure Only (Routine) - Closed Specialty Diagnoses / Procedures Referred By Contac t Referred To Contact XR IMAGING Diagnoses Chronic pain of both knees Procedures XR KNEE GENERAL 4V AP BOTH/PA BOTH/LAT/MERC BILATERAL RADIOLOGIC EXAM KNEE COMPLETE 4/MORE VIEWS PodlogarAlecia APRN.SECURITY AND COMPLIANCE ANALYST [address] [place] [address] [place] [id number] Referral ID Status Reason Start Date Expiration Date V isits Requested Visits Authorized [id number] Closed Auto-Generate d Referral 08/08/2023 09/06/2024 1 1 [facility] Summary Purpose Family History No Family History Records FoundNo Family History Records Found Advance Directives No Advanced Directives Records FoundNo Advanced Directives Records Found Reason for Referral Specialty Diagnoses / Procedures Referred By Contac t Referred To Contact MR IMAGING Diagnoses Liver lesion Procedures MRI LIVER WO/W IVCON MRI ABDOMEN W/O & W/CONTRAST MATERIAL Anjana Saavedra, FLOUR WORKER.SECURITY AND COMPLIANCE ANALYST [address] [place] [address] Mr Imaging Referral ID Status Reason Start Date Expiration Date V isits Requested Visits Authorized [id number] Open Auto-Generate d Referral 01/28/2022 02/27/2023 1 1 Referral ID Status Reason Start Date Expiration Date V isits Requested Visits Authorized [id number] Closed Auto-Generate d Referral 02/07/2022 05/28/2022 1 1 Specialty Diagnoses / Procedures Referred By Contac t Referred To Contact [facility] Diagnoses Chronic pain of both knees Procedures CONSULT TO PHYSICAL THERAPY PHYSICAL THERAPY EVALUATION HIGH COMPLEX 45 MINS Podlogar, Alecia, FLOUR WORKER.SECURITY AND COMPLIANCE ANALYST [address] [place] [address] [facility] [place] [address] [place] [address] Referral ID Status Reason Start Date Expiration Date Visits Requested Visits Authorized [id number] Authorized Auto-Generat ed Referral 05/29/2023 05/28/2024 99 99 Specialty Diagnoses / Procedures Referred By Contac t Referred To Contact XR IMAGING Diagnoses Chronic pain of both knees Procedures XR KNEE GENERAL 4V AP BOTH/PA BOTH/LAT/MERC BILATERAL RADIOLOGIC EXAM KNEE COMPLETE 4/MORE VIEWS Podlogar, Alecia FLOUR WORKER.SECURITY AND COMPLIANCE ANALYST [address] [place] [address] [place] [id number] Referral ID Status Reason Start Date Expiration Date V isits Requested Visits Authorized [id number] Closed Auto-Generate d Referral 08/08/2023 09/06/2024 1 1 Specialty Diagnoses / Procedures Referred By Contac t Referred To Contact Diagnoses Attention deficit hyperactivity disorder (ADHD) evaluation Procedures CONSULT TO PSYCHIATRY Emily Neumann, FLOUR WORKER.SECURITY AND COMPLIANCE ANALYST [address] [place] [address] Linda Brown, FLOUR WORKER.SECURITY AND COMPLIANCE ANALYST [address] [place] [address] Referral ID Status Reason Start Date Expiration Date Visits Requested Visits Authorized [id number] Ref Not Required PCP Requested Referral 01/05/2024 01/04/2025 1 1 Specialty Diagnoses / Procedures Referred By Contstephen t Referred To Contact Gastroenterology Diagnoses Irritable bowel syndrome with constipation and diarrhea Procedures CONSULT TO GASTROENTEROLOGY Emily Neumann APRN.SECURITY AND COMPLIANCE ANALYST [address] [place] [address] FriendJoe, DO [address] [address] Referral ID Status Reason Start Date Expiration Date Visits Requested Visits Authorized [id number] Ref Not Required PCP Requested Referral 01/05/2024 01/04/2025 1 1 Additional Source Comments INFORMATION SOURCE (unrecogn ized section and content) DATE CREATED AUTHOR 01/17/2019 [facility] DATE CREATED AUTHOR AUTHOR'S WILFREDO ATION 02/13/2024 [facility] Source Comments (unrecognize d section and content) In the event this informatio n is protected by the Federal Confidentiality of Alcohol and Drug Abuse Patient Records regulations: The Federal rules restrict any use of the information to criminally investigate or prosecute any alcohol or drug abuse patient.[facility] the event this information is protected by the Federal Confidentiality of Alcohol and Drug Abuse Patient Records regulations: The Federal rules restrict any use of the information to criminally investigate or prosecute any alcohol or drug abuse patient.[facility] the event this information is protected by the Federal Confidentiality of Alcohol and Drug Abuse Patient Records regulations: The Federal rules restrict any use of the information to criminally investigate or prosecute any alcohol or drug abuse patient.[facility] the event this information is protected by the Federal Confidentiality of Alcohol and Drug Abuse Patient Records regulations: The Federal rules restrict any use of the information to criminally investigate or prosecute any alcohol or drug abuse patient.[facility] the event this information is protected by the Federal Confidentiality of Alcohol and Drug Abuse Patient Records regulations: The Federal rules restrict any use of the information to criminally investigate or prosecute any alcohol or drug abuse patient.[facility] the event this information is protected by the Federal Confidentiality of Alcohol and Drug Abuse Patient Records regulations: The Federal rules restrict any use of the information to criminally investigate or prosecute any alcohol or drug abuse patient.[facility] the event this information is protected by the Federal Confidentiality of Alcohol and Drug Abuse Patient Records regulations: The Federal rules restrict any use of the information to criminally investigate or prosecute any alcohol or drug abuse patient.[facility] the event this information is protected by the Federal Confidentiality of Alcohol and Drug Abuse Patient Records regulations: The Federal rules restrict any use of the information to criminally investigate or prosecute any alcohol or drug abuse patient.[facility] the event this information is protected by the Federal Confidentiality of Alcohol and Drug Abuse Patient Records regulations: The Federal rules restrict any use of the information to criminally investigate or prosecute any alcohol or drug abuse patient.[facility] the event this information is protected by the Federal Confidentiality of Alcohol and Drug Abuse Patient Records regulations: The Federal rules restrict any use of the information to criminally investigate or prosecute any alcohol or drug abuse patient.[facility] the event this information is protected by the Federal Confidentiality of Alcohol and Drug Abuse Patient Records regulations: The Federal rules restrict any use of the information to criminally investigate or prosecute any alcohol or drug abuse patient.[facility] the event this information is protected by the Federal Confidentiality of Alcohol and Drug Abuse Patient Records regulations: The Federal rules restrict any use of the information to criminally investigate or prosecute any alcohol or drug abuse patient.[facility] the event this information is protected by the Federal Confidentiality of Alcohol and Drug Abuse Patient Records regulations: The Federal rules restrict any use of the information to criminally investigate or prosecute any alcohol or drug abuse patient.[facility] the event this information is protected by the Federal Confidentiality of Alcohol and Drug Abuse Patient Records regulations: The Federal rules restrict any use of the information to criminally investigate or prosecute any alcohol or drug abuse patient.[facility] the event this information is protected by the Federal Confidentiality of Alcohol and Drug Abuse Patient Records regulations: The Federal rules restrict any use of the information to criminally investigate or prosecute any alcohol or drug abuse patient.[facility] the event this information is protected by the Federal Confidentiality of Alcohol and Drug Abuse Patient Records regulations: The Federal rules restrict any use of the information to criminally investigate or prosecute any alcohol or drug abuse patient.[facility] the event this information is protected by the Federal Confidentiality of Alcohol and Drug Abuse Patient Records regulations: The Federal rules restrict any use of the information to criminally investigate or prosecute any alcohol or drug abuse patient.[facility] the event this information is protected by the Federal Confidentiality of Alcohol and Drug Abuse Patient Records regulations: The Federal rules restrict any use of the information to criminally investigate or prosecute any alcohol or drug abuse patient.[facility] the event this information is protected by the Federal Confidentiality of Alcohol and Drug Abuse Patient Records regulations: The Federal rules restrict any use of the information to criminally investigate or prosecute any alcohol or drug abuse patient.[facility] CenterIn the event this information is protected by the Federal Confidentiality of Alcohol and Drug Abuse Patient Records regulations: The Federal rules restrict any use of the information to criminally investigate or prosecute any alcohol or drug abuse patient.[facility] CenterIn the event this information is protected by the Federal Confidentiality of Alcohol and Drug Abuse Patient Records regulations: The Federal rules restrict any use of the information to criminally investigate or prosecute any alcohol or drug abuse patient.[facility] CenterIn the event this information is protected by the Federal Confidentiality of Alcohol and Drug Abuse Patient Records regulations: The Federal rules restrict any use of the information to criminally investigate or prosecute any alcohol or drug abuse patient.[facility] CenterIn the event this information is protected by the Federal Confidentiality of Alcohol and Drug Abuse Patient Records regulations: The Federal rules restrict any use of the information to criminally investigate or prosecute any alcohol or drug abuse patient.[facility] CenterIn the event this information is protected by the Federal Confidentiality of Alcohol and Drug Abuse Patient Records regulations: The Federal rules restrict any use of the information to criminally investigate or prosecute any alcohol or drug abuse patient.[facility] Reason for Visit (unrecogniz ed section and content) Reason Comments Physical Therapy Specialty Diagnoses / Procedures Referred By Palmer vargas Referred To Contact [facility] Diagnoses Chronic pain of both knees Procedures CONSULT TO PHYSICAL THERAPY PHYSICAL THERAPY EVALUATION HIGH COMPLEX 45 MINS Podlogar, SPENSER [place].SECURITY AND COMPLIANCE ANALYST [address] [place] [address] [facility] [place] [address] [place] [address] Referral ID Status Reason Start Date Expiration Date Visits Requested Visits Authorized [id number] Authorized Auto-Generat ed Referral 05/29/2023 05/28/2024 99 99 Reason Comments Medication Question Reason Comments Refill Request Reason Comments Radiology US Specialty Diagnoses / Procedures Referred By Contac t Referred To Contact US IMAGING Diagnoses RUQ pain Procedures US ABD RT UPPER QUADRANT US ABDOMINAL REAL TIME W/IMAGE LIMITED Anjana Saavedra, SPENSER.SECURITY AND COMPLIANCE ANALYST [address] [facility] [place] [address] Us Imaging Referral ID Status Reason Start Date Expiration Date V isits Requested Visits Authorized [id number] Closed Auto-Generate d Referral 01/25/2022 02/24/2023 1 1 Reason Comments Abdominal Pain Reason Comments Results Specialty Diagnoses / Procedures Referred By Contac t Referred To Contact MR IMAGING Diagnoses Liver lesion Procedures MRI LIVER WO/W IVCON MRI ABDOMEN W/O & W/CONTRAST MATERIAL Anjana Saavedra APRN.SECURITY AND COMPLIANCE ANALYST [address] [facility] [place] [address] Mr Imaging Referral ID Status Reason Start Date Expiration Date V isits Requested Visits Authorized [id number] Closed Auto-Generate d Referral 02/07/2022 05/28/2022 1 1 Reason Comments Radiology NM Specialty Diagnoses / Procedures Referred By Contstephen t Referred To Contact MOLECULAR [facility] FUNCTIONAL IMAGING Diagnoses Calculus of gallbladder without cholecystitis without obstruction Nausea Procedures NM HEPATOBILIARY W EF AND/OR RX HEPATOBIL SYST IMAG INC GB W/PHARMA INTERVENJ Anjana Saavedra, SPENSER.SECURITY AND COMPLIANCE ANALYST [address] [facility] [place] [address] Molecular [facility] Functional Imaging [address] [place] [address] Referral ID Status Reason Start Date Expiration Date V isits Requested Visits Authorized [id number] Closed Auto-Generate d Referral 02/15/2022 05/28/2022 1 1 Reason Comments Orders Reason Comments Consult Reason Comments Post Op Follow Up Lap berto Reason Comments Patient Question Reason Comments Swelling Left leg, has since went down but comes and goes Additional Labs Would like to have r outine labs ordered, concerned about diabetes Physical Reason Comments Urinary Problem Reason Comments Urinary Problem burning with urinati on x 1 day Reason Comments Knee Pain Mainly to right knee . Both knees have been popping and cracking Reason Comments PT Eval Reason Comments Results Reason Comments New Patient Knee Pain Specialty Diagnoses / Procedures Referred By Contac t Referred To Contact Orthopedics Diagnoses Subluxation of patellofemoral joint, unspecified laterality, initial encounter Procedures CONSULT TO ORTHOPAEDICS OFFICE/OUTPATIENT [facility] 60 MINUTES Podlogar, , FLOUR WORKER.SECURITY AND COMPLIANCE ANALYST [address] [place] [address] Referral ID Status Reason Start Date Expiration Date V isits Requested Visits Authorized [id number] Closed PCP Requested Referral 08/10/2023 08/09/2024 1 1 Reason Comments Rectal Problem X 2 months Care Teams (unrecognized sec tion and content) Bookkeeping Clerks Supervisor Relationship Specialty Start Date End Date Podlogar, , FLOUR WORKER.SECURITY AND COMPLIANCE ANALYST [address] [place] [address] PCP - General Family Practice 01/25/22 Bookkeeping Clerks Supervisor Relationship Specialty Start Date End Date Podlogar, , FLOUR WORKER.SECURITY AND COMPLIANCE ANALYST [address] [place] [address] PCP - General Family Practice 01/25/22 Bookkeeping Clerks Supervisor Relationship Specialty Start Date End Date Podlogar, , FLOUR WORKER.SECURITY AND COMPLIANCE ANALYST [address] [place] [address] PCP - General Family Medicine 01/25/22 Bookkeeping Clerks Supervisor Relationship Specialty Start Date End Date Podlogar, , FLOUR WORKER.SECURITY AND COMPLIANCE ANALYST [address] [place] [address] PCP - General Family Medicine 01/25/22 Bookkeeping Clerks Supervisor Relationship Specialty Start Date End Date Podlogar, , FLOUR WORKER.SECURITY AND COMPLIANCE ANALYST [address] [place] [address] PCP - General Family Medicine 01/25/22 Bookkeeping Clerks Supervisor Relationship Specialty Start Date End Date Podlogar, , FLOUR WORKER.SECURITY AND COMPLIANCE ANALYST [address] [place] [address] PCP - General Family Medicine 01/25/22 Bookkeeping Clerks Supervisor Relationship Specialty Start Date End Date Podlogar, , FLOUR WORKER.SECURITY AND COMPLIANCE ANALYST [address] [facility] [place] [address] PCP - General Family Medicine 01/25/22 Bookkeeping Clerks Supervisor Relationship Specialty Start Date End Date Kim Celestin MD [address] [facility] [place] [address] PCP - General Family Medicine 01/25/22 Podlogar, Alecia, FLOUR WORKER.SECURITY AND COMPLIANCE ANALYST [address] [place] [address] Family Medicine 01/25/22 Bookkeeping Clerks Supervisor Relationship Specialty Start Date End Date Kim Celestin MD [address] [facility] [address] PCP - General Family Medicine 01/25/22 Podlogar, Alecia, FLOUR WORKER.SECURITY AND COMPLIANCE ANALYST [address] [place] [address] Family Medicine 01/25/22 Bookkeeping Clerks Supervisor Relationship Specialty Start Date End Date Kim Celestin MD [address] [facility] [address] PCP - General Family Medicine 01/25/22 Podlogar, Alecia, FLOUR WORKER.SECURITY AND COMPLIANCE ANALYST [address] [place] [address] Family Medicine 01/25/22 Bookkeeping Clerks Supervisor Relationship Specialty Start Date End Date Kim Celestin MD [address] [place] [address] PCP - General Family Medicine 01/25/22 Podlogar, Alecia, FLOUR WORKER.SECURITY AND COMPLIANCE ANALYST [address] [place] [address] Family Medicine 01/25/22 Bookkeeping Clerks Supervisor Relationship Specialty Start Date End Date Kim Celestin MD [address] [place] [address] PCP - General Family Medicine 01/25/22 Podlogar, Alecia, FLOUR WORKER.SECURITY AND COMPLIANCE ANALYST [address] [place] [address] Family Medicine 01/25/22 Bookkeeping Clerks Supervisor Relationship Specialty Start Date End Date Kim Celestin MD [address] [place] [address] PCP - General Family Medicine 01/25/22 Podlogar, Alecia, FLOUR WORKER.SECURITY AND COMPLIANCE ANALYST [address] [place] [address] Family Medicine 01/25/22 Bookkeeping Clerks Supervisor Relationship Specialty Start Date End Date Kim Celestin MD [address] [place] [address] PCP - General Family Medicine 01/25/22 Podlogar, Alecia, FLOUR WORKER.SECURITY AND COMPLIANCE ANALYST [address] [place] [address] Family Medicine 01/25/22 Bookkeeping Clerks Supervisor Relationship Specialty Start Date End Date Kim Celestin MD [address] [place] [address] PCP - General Family Medicine 01/25/22 Podlogar, Alecia, FLOUR WORKER.SECURITY AND COMPLIANCE ANALYST [address] [place], [place] [address] Family [facility] 01/25/22 Bookkeeping Clerks Supervisor Relationship Specialty Start Date End Date Kim Celestin MD [address] [facility] [place] [id number] PCP - General Family Medicine 01/25/22 PodAlecia pulliam APRN.SECURITY AND COMPLIANCE ANALYST [address] [place] [address] [facility] 01/25/22 Bookkeeping Clerks Supervisor Relationship Specialty Start Date End Date Kim Celestin MD [address] [place] [address] PCP - General Family Medicine 01/25/22 Alecia Liz APRN.SECURITY AND COMPLIANCE ANALYST [address] [place] [address] [facility] 01/25/22 FOR RECORDS PERTAINING TO PATIENTS WHO ARE OR HAVE BEEN ENROLLED IN A CHEMICAL DEPENDENCY/SUBSTANCEABUSE PROGRAM, SOME INFORMATION MAY BE OMITTED. This clinical summary was aggregated from multiple sources. Caution should be exercised in using it in the provision of clinical care. This summary normalizes information from multiple sources, and as a consequence, information in this document may materially change the coding, format and clinical context of patient data. In addition, data may be omitted in some cases. CLINICAL DECISIONS SHOULD BE BASED ON THE PRIMARY CLINICAL RECORDS. [employer] [facility]. provides no warranty or guarantee of the accuracy or completeness of information in this document.
[2024-03-21 12:13] LABS: Absolute Neutrophil Count 5.2 X10^3/uL (2.0-7.7); Basophil# 0.04 X10^3/uL; Basophil% 0.5 % (0-1); Eosinophil# 0.06 X10^3/uL; Eosinophils% 0.7 % (0-5); Hematocrit 43.1 % (37-47); Mean Corp Hgb Conc 32.5 g/dL (32-36); Mean Corpuscular Hgb 26.2 pg (27.0-32.0); Mean Corpuscular Volume 80.6 fL (81-99); Mean Platelet Vol. 11.1 fl (6.2-12.0); Monocyte# 0.58 X10^3/uL; Monocyte% 7.1 % (0-10); NRBC Flagged by Analyzer 0 % (0-5); Neutrophil # 5.21 X10^3/uL (2.7-7.7); Neutrophil % 63.5 % (47-70); Platelet Count 290 K/mm3 (150-450); RBC Distribution Width CV 12.8 % (11.6-14.6); Red Blood Count 5.35 M/mm3 (4.2-5.4); White Blood Count 8.2 K/mm3 (4.4-11.0)
[2024-03-21 12:15] LABS: Erythrocyte Sedimentation Rate 30 mm/hr (0-30)
[2024-03-21 14:11] LABS: ALB/GLOB Ratio 0.8 RATIO (0.9-2.4); AST(SGOT) 14 U/L (15-37); Alanine Aminotransfer ALT/SGPT 30 U/L (13-56); Albumin, Serum 3.4 g/dL (3.2-5.0); Alkaline Phosphatase 84 U/L (45-117); Anion Gap 8 (5-15); BUN 8 mg/dL (7-18); BUN/Creat Ratio 10.2 RATIO (10-20); Calcium,Total 9.9 mg/dL (8.5-10.1); Chloride 107 mmol/L (98-107); Creatinine, Serum 0.79 mg/dL (0.55-1.02); EST Glomerular Filtration Rate 89 mL/min (>60); Est Glom Filt Rate - Afr Amer 108 mL/min (>60); Glucose 106 mg/dL (74-106); Potassium 3.8 mmol/L (3.5-5.1); Protein, Total 7.4 g/dL (6.4-8.2); Sodium Level 136 mmol/L (136-145)
[2024-03-26 02:08] LABS: Pancreatic Elastase, Fecal > 800 (>200)
[2024-03-26 11:10] LABS: ACCA 21 units (0-90); ALCA 7 units (0-60); AMCA 28 units (0-100); Angiotensin Convert Enzyme 35 U/L (14-82); Anti-Smooth Muscle ABS 4 Units (0-19); Cytoplasmic Ab (C-ANCA) <1:20 titer (Neg:<1:20); Endomysial Antibody IgA Negative (Negative); Immunoglobulin A 141 mg/dL (87-352); Perinuclear Ab (P-ANCA) <1:20 titer (Neg:<1:20); gASCA 7 units (0-50); t-Transglutaminase IgA <2 U/mL (0-3)
[2024-03-29 01:07] LABS: Anti-Centromere B Ab <0.2 AI (0.0-0.9); Anti-Chromatin <0.2 AI (0.0-0.9); Anti-Jo <0.2 AI (0.0-0.9); Anti-Mitochondrial AB <20.0 Units (0.0-20.0); Anti-Scleroderma-70 AB 0.3 AI (0.0-0.9); Anti-dsDNA Ab <1 IU/mL (0-9); Beef <0.10 kU/L (Class 0); Chocolate <0.10 kU/L (Class 0); Codfish <0.10 kU/L (Class 0); Corn <0.10 kU/L (Class 0); Egg, Whole <0.10 kU/L (Class 0); Milk (Cow) <0.10 kU/L (Class 0); Mussels <0.10 kU/L (Class 0); Peanut <0.10 kU/L (Class 0); Pork <0.10 kU/L (Class 0); RNP Ab <0.2 AI (0.0-0.9); SJOGREN'S Anti-SS-A test < 0.2 AI (0.0-0.9); SJOGREN'S Anti-SS-B test < 0.2 AI (0.0-0.9); Salmon <0.10 kU/L (Class 0); Shrimp 0.25 kU/L (Class 0/I); Smith Ab <0.2 AI (0.0-0.9); Soybean <0.10 kU/L (Class 0); Tuna <0.10 kU/L (Class 0); Wheat <0.10 kU/L (Class 0)
== END | disposition home or self-care (01) ==
LOC: LAB 11:08
PROVIDERS: PCP Nurse Practitioner Family; Referring Provider Student in an Organized Health Care Education/Training Program; Visit Provider Student in an Organized Health Care Education/Training Program
DX: K58.9 Irritable bowel syndrome, unspecified (principal); K59.00 Constipation, unspecified
CPT/HCPCS: 36415; 80053; 82164; 82653; 82784; 83516; 83630; 85025; 85652; 86003; 86005; 86036; 86037; 86140; 86225; 86235; 86255; 86671; 87177; 87209; 87329; 87493; 87506

== ENCOUNTER → 2024-09-06 | Outpatient (CLI) | payer BC, SELFPAY ==
[2024-09-06 17:43] LABS: Absolute Lymphocyte Count 3.02 X10^3/uL (0.83-4.51); Absolute Neutrophil Count 5.1 X10^3/uL (2.0-7.7); Basophil# 0.06 X10^3/uL; Basophil% 0.7 % (0-1); Eosinophil# 0.07 X10^3/uL; Eosinophils% 0.8 % (0-5); Hemoglobin 14.2 g/dL (12.0-15.0); Lymphocyte # 3.02 X10^3/ul (0.83-4.51); Lymphocyte % 33.8 % (19-41); Mean Corpuscular Hgb 26.8 pg (27.0-32.0); Mean Corpuscular Volume 81.1 fL (81-99); Monocyte% 7.8 % (0-10); NRBC Flagged by Analyzer 0 % (0-5); Neutrophil # 5.06 X10^3/uL (2.7-7.7); Neutrophil % 56.7 % (47-70); Platelet Count 284 K/mm3 (150-450); RBC Distribution Width CV 13.2 % (11.6-14.6); RBC Distribution Width SD 38.7 fl (35.1-43.9); White Blood Count 8.9 K/mm3 (4.4-11.0)
[2024-09-06 18:40] LABS: ALB/GLOB Ratio 1.2 RATIO (0.9-2.4); AST(SGOT) 18 U/L (<=31); Alanine Aminotransfer ALT/SGPT 25 U/L (<=34); Alkaline Phosphatase 92 U/L (35-104); Anion Gap 13 (5-15); BUN 9 mg/dL (4-19); Calcium,Total 9.2 mg/dL (7.6-11.0); Carbon Dioxide 22.9 mmol/L (21.0-32.0); Chloride 104 mmol/L (98-108); Creatinine, Serum 0.76 mg/dL (0.70-1.20); EST Glomerular Filtration Rate 105 (>60); Ferritin 36 ng/mL (22-378); Free T3 3.3 pg/mL (2.18-3.98); Globulin 3.2 g/dL (2.2-4.2); Glucose 93 mg/dL (70-99); Protein, Total 7.2 g/dL (5.9-8.4); Sodium Level 139 mmol/L (133-145); Total Bilirubin 0.24 mg/dL (0.00-1.30); Vitamin D,25 Hydroxy 21.3 ng/mL (30-100)
[2024-09-09 10:07] LABS: ANTINUCLEAR ANTIBODIES DIRECT Negative (Negative); Anti-dsDNA Ab <1 IU/mL (0-9)
== END | disposition home or self-care (01) ==
LOC: LAB 17:11
PROVIDERS: PCP Nurse Practitioner Family; Referring Provider Physician Assistant; Visit Provider Physician Assistant
DX: L65.9 Nonscarring hair loss, unspecified (principal); L21.8 Other seborrheic dermatitis; L28.0 Lichen simplex chronicus
CPT/HCPCS: 36415; 80053; 82306; 82728; 84402; 84403; 84439; 84443; 84481; 84630; 85025; 86038; 86225; 86376; 86800

== ENCOUNTER → 2024-11-06 | Outpatient (CLI) | payer BC, SELFPAY ==
--- NOTE | 2024-11-06 12:54 | US_ITS ---
PROCEDURE: TRANSVAGINAL NON- 11/06/2024 REASON FOR EXAM: PELVIC PAIN Left greater than right. TECHNIQUE: Transvaginal pelvic ultrasound COMPARISON: September 15, 2022. FINDINGS: Measurements: Uterus: 6.7 cm x 3.7 cm x 2.8 cm with a volume of 36.48 mL Endometrial Thickness: 3.9 mm. It is hyperechoic. Right Ovary: 2.7 cm x 2.8 cm x 2 1 4 cm with a volume of 9.44 mL. Left Ovary: 3.9 cm x 3 cm x 2.5 cm with a volume of 15.43 mL. Uterus: Normal size, myometrial echotexture, and contour.. It is anteverted. Endometrium: Unremarkable. Right ovary: Multiple small follicles. Left ovary: Multiple small follicles. Other: US/Transvaginal Non- IMPRESSION: NORMAL transvaginal PELVIC ULTRASOUND. Reading Location: [id number]
== END | disposition home or self-care (01) ==
PROVIDERS: PCP Nurse Practitioner Family; Referring Provider Nurse Practitioner Women's Health; Visit Provider Nurse Practitioner Women's Health
DX: R10.2 Pelvic and perineal pain (principal)
CPT/HCPCS: 76830